=== PATIENT | female | born 1975 | race African-American/Black ===

== ENCOUNTER 2016-10-11 18:21 | Emergency (ER) | payer OTHER ==
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
[2016-10-11] MEDS ORDERED: ACET/COD 300 MG/30 MG STARTER PACK 6 TAB BTL PO STA (20:19)
[2016-10-11 20:26] VITALS: BP 158/88; PULSE 74; RESP 20; TEMP 98.8
== END 2016-10-11 20:26 | disposition home or self-care (01) ==
LOC: EC 18:21
DX: M70.20 Olecranon bursitis, unspecified elbow (principal); M17.12 Unilateral primary osteoarthritis, left knee; Z79.899 Other long term (current) drug therapy; Z79.51 Long term (current) use of inhaled steroids; E28.2 Polycystic ovarian syndrome; Z79.3 Long term (current) use of hormonal contraceptives; F17.200 Nicotine dependence, unspecified, uncomplicated; M70.32 Other bursitis of elbow, left elbow
CPT/HCPCS: 99283

== ENCOUNTER 2017-02-28 12:50 | Inpatient (IN) | payer OTHER ==
[2017-02-28 13:19] LABS: Glucose,Whole Blood 128 mg/dL (75-99)
[2017-02-28] MEDS ORDERED: MORPHINE SULFATE 4 MG/ML SYRINGE IV STA (13:26)
--- NOTE | 2017-02-28 13:34 | ED ---
General Adult HPI - General Chief complaint: Neuro Symptoms/Deficit Stated complaint: Headache-blurred vision Time Seen by Provider: 02/28/17 13:16 Source: patient, family, RN notes reviewed Mode of arrival: wheelchair Limitations: no limitations - History of Present Illness Initial comments: Patient is a pleasant 41-year-old female presenting to the emergency department with headache and visual problems. Patient has been expressing headaches for the past few months. Patient awoke today with double vision. Patient did recently see her doctor and was scheduled for computed tomography scan of the brain however this has not been done yet. Patient did take Motrin today. Headache is currently 7/10. Patient complains of double vision with the left eye. Patient states when she closes either eye the double vision results. No history of visual problems previously. does notice some abnormality in the way that the eyes move. No fevers. No neck pain. No weakness. No confusion. - Related Data Home Medications Medication Instructions Recorded Confirmed Medroxyprogesterone Acetate 150 mg IM Q90D 01/21/16 02/28/17 [Depo-Provera] Previous Rx's Medication Instructions Recorded Ibuprofen [Motrin] 800 mg PO Q6HR PRN #15 tab 10/11/16 Allergies Allergy/AdvReac Type Severity Reaction Status Date / Time citalopram hydrobromide AdvReac Severe Migraine Verified 02/28/17 13:05 [From [facility] Panels[facility]] Review of Systems ROS Statement: Those systems with pertinent positive or pertinent negative responses have been documented in the HPI. ROS Other: All systems not noted in ROS Statement are negative. Constitutional: Denies: fever Eyes: Reports: vision change. Denies: eye discharge ENT: Denies: ear pain Respiratory: Denies: cough Cardiovascular: Denies: chest pain Endocrine: Denies: fatigue Gastrointestinal: Denies: abdominal pain Genitourinary: Denies: dysuria Musculoskeletal: Denies: back pain Skin: Denies: rash Neurological: Reports: headache Past Medical History Past Medical History: Osteoarthritis (OA) Additional Past Medical History / Comment(s): ibs chronic pain seasonal allergies PCOS History of Any Multi-Drug Resistant Organisms: None Reported Past Surgical History: Cholecystectomy, Orthopedic Surgery Additional Past Surgical History / Comment(s): colonoscopy, d & c Past Psychological History: Anxiety Smoking Status: Current every day smoker Past Alcohol Use History: Rare Past Drug Use History: None Reported General Exam Limitations: no limitations General appearance: alert, in no apparent distress Head exam: Present: atraumatic, normocephalic, other (Mild tenderness left temporal region) Eye exam: Present: other (There is disconjugate gaze especially with movement to the left. Right eye does not appear to completely remove to the left side. Left eye has horizontal nystagmus with left lateral vision. Double vision resolves with either eye.) Expanded Eyelids: Normal Inspection: Bilateral Pupils: Regular, Round: Bilateral, Reactive: Bilateral Sclera/Conjunctival: Normal Inspection: Bilateral ENT exam: Present: normal oropharynx Neck exam: Present: normal inspection. Absent: tenderness, meningismus Respiratory exam: Present: normal lung sounds bilaterally Cardiovascular Exam: Present: regular rate, normal rhythm GI/Abdominal exam: Present: soft. Absent: tenderness Extremities exam: Present: normal inspection Neurological exam: Present: alert Expanded Cranial nerves: EOM's Intact: Abnormal Right, Facial Sensation: Normal Cerebellar function: Finger to Nose: Normal (Patient states it feels slightly off with the left side however does touch her nose) Sensory exam: Upper Extremity Light Touch: Normal, Lower Extremity Light Touch: Normal Motor strength exam: RUE: 5, LUE: 5, RLE: 5, LLE: 5 Eye Response: (4) open spontaneously Motor Response: (6) obeys commands Verbal Response: (5) oriented Psychiatric exam: Present: normal affect, normal mood Skin exam: Present: normal color Course Vital Signs 02/28/17 02/28/17 13:01 14:21 Temperature 100.1 F H Pulse Rate 102 H 89 Respiratory 18 18 Rate Blood Pressure 189/98 165/73 O2 Sat by Pulse 100 98 Oximetry EKG Findings - EKG Comments: EKG Findings:: Normal sinus rhythm 98. CT 150. QRS 80. QT 362. QTC 462. Normal axis. Normal QRS. Normal ST-T. Medical Decision Making - Medical Decision Making Patient reevaluated and updated. Concern exists regarding abnormal eye exam and double vision. Patient will be admitted for MRI and neurology evaluation. Case discussed in detail with Dr. Hopson, who will admit for Dr. Freddie Bo. - Lab Data Result diagrams: 02/28/17 13:40 02/28/17 13:40 Lab Results 02/28/17 02/28/17 02/28/17 Range/Units 13:18 13:40 13:40 WBC 12.2 H (3.8-10.6) k/uL RBC 4.40 (3.80-5.40) m/uL Hgb 14.4 (11.4-16.0) gm/dL Hct 42.3 (34.0-46.0) % MCV 96.0 (80.0-100.0) fL MCH 32.7 (25.0-35.0) pg MCHC 34.1 (31.0-37.0) g/dL RDW 13.5 (11.5-15.5) % Plt Count 326 (150-450) k/uL Neutrophils % 61 % Lymphocytes % 28 % Monocytes % 6 % Eosinophils % 3 % Basophils % 1 % Neutrophils # 7.4 (1.3-7.7) k/uL Lymphocytes # 3.4 (1.0-4.8) k/uL Monocytes # 0.7 (0-1.0) k/uL Eosinophils # 0.4 (0-0.7) k/uL Basophils # 0.1 (0-0.2) k/uL ESR Cancelled PT (9.0-12.0) sec INR (<1.1) APTT (22.0-30.0) sec Sodium (137-145) mmol/L Potassium (3.5-5.1) mmol/L Chloride (98-107) mmol/L Carbon Dioxide (22-30) mmol/L Anion Gap mmol/L BUN (7-17) mg/dL Creatinine (0.52-1.04) mg/dL Est GFR (MDRD) Af Amer (>60 ml/min/1.73 sqM) Est GFR (MDRD) Non-Af (>60 ml/min/1.73 sqM) Glucose (74-99) mg/dL POC Glucose (mg/dL) 128 H (75-99) mg/dL POC Glu Outpatient Coder ID Anger, [place] Calcium (8.4-10.2) mg/dL Total Bilirubin (0.2-1.3) mg/dL AST (14-36) U/L ALT (9-52) U/L Alkaline Phosphatase (38-126) U/L Total Creatine Kinase 136 H (30-135) U/L CK-MB (CK-2) 0.4 (0.0-2.4) ng/mL CK-MB (CK-2) Rel Index 0.3 Troponin I <0.012 (0.000-0.034) ng/mL Total Protein (6.3-8.2) g/dL Albumin (3.5-5.0) g/dL 02/28/17 02/28/17 Range/Units 13:40 13:40 WBC (3.8-10.6) k/uL RBC (3.80-5.40) m/uL Hgb (11.4-16.0) gm/dL Hct (34.0-46.0) % MCV (80.0-100.0) fL MCH (25.0-35.0) pg MCHC (31.0-37.0) g/dL RDW (11.5-15.5) % Plt Count (150-450) k/uL Neutrophils % % Lymphocytes % % Monocytes % % Eosinophils % % Basophils % % Neutrophils # (1.3-7.7) k/uL Lymphocytes # (1.0-4.8) k/uL Monocytes # (0-1.0) k/uL Eosinophils # (0-0.7) k/uL Basophils # (0-0.2) k/uL ESR PT 10.3 (9.0-12.0) sec INR 1.0 (<1.1) APTT 25.0 (22.0-30.0) sec Sodium 141 (137-145) mmol/L Potassium 4.0 (3.5-5.1) mmol/L Chloride 112 H (98-107) mmol/L Carbon Dioxide 20 L (22-30) mmol/L Anion Gap 9 mmol/L BUN 10 (7-17) mg/dL Creatinine 0.64 (0.52-1.04) mg/dL Est GFR (MDRD) Af Amer >60 (>60 ml/min/1.73 sqM) Est GFR (MDRD) Non-Af >60 (>60 ml/min/1.73 sqM) Glucose 113 H (74-99) mg/dL POC Glucose (mg/dL) (75-99) mg/dL POC Glu Outpatient Coder ID Calcium 9.5 (8.4-10.2) mg/dL Total Bilirubin 0.6 (0.2-1.3) mg/dL AST 20 (14-36) U/L ALT 21 (9-52) U/L Alkaline Phosphatase 86 (38-126) U/L Total Creatine Kinase (30-135) U/L CK-MB (CK-2) (0.0-2.4) ng/mL CK-MB (CK-2) Rel Index Troponin I (0.000-0.034) ng/mL Total Protein 7.5 (6.3-8.2) g/dL Albumin 4.3 (3.5-5.0) g/dL - Radiology Data Radiology results: image reviewed (Computed tomography scan of the brain shows no acute intercranial abnormality. Two-view chest x-ray shows no acute process. ) Disposition Clinical Impression: Diplopia, Dysconjugate gaze Disposition: ADMITTED IP TO THIS [facility] Condition: Serious Referrals: Smita Mckeon MD [Primary Care Provider] - 1-2 days Time of Disposition: 15:00
[2017-02-28] MEDS: SODIUM CHLORIDE 0.9% 1,000 ML IV STA (13:40)
[2017-02-28 14:06] LABS: Basophils # (A) 0.1 k/uL (0-0.2); Basophils % (A) 1 %; CH 32.4; Eosinophils # (A) 0.4 k/uL (0-0.7); Eosinophils % (A) 3 %; HCT 42.3 % (34.0-46.0); HDW 3.09; HGB 14.4 gm/dL (11.4-16.0); Luc # (Auto) 0.27; Luc % (Auto) 2; Lymphocytes # (A) 3.4 k/uL (1.0-4.8); Lymphocytes % (A) 28 %; MCH 32.7 pg (25.0-35.0); MCHC 34.1 g/dL (31.0-37.0); Mean Platelet Volume 7.5; Monocytes # (A) 0.7 k/uL (0-1.0); Monocytes % (A) 6 %; Neutrophils # (A) 7.4 k/uL (1.3-7.7); Neutrophils % (A) 61 %; RDW 13.5 % (11.5-15.5); WBC 12.2 k/uL (3.8-10.6); WBC (Perox) 12.95
--- NOTE | 2017-02-28 14:10 | CT ---
EXAMINATION TYPE: CT brain wo con for TPA DATE OF EXAM: 02/28/2017 COMPARISON: MRI brain November 10, 2010 HISTORY: Headache, dizziness, blurred vision CT DLP: 1090.4 mGycm Automated exposure control for dose reduction was used. FINDINGS: There is no acute intracranial hemorrhage, mass effect, or midline shift identified. The ventricles and sulci are within normal limits in size. Flores-white matter differentiation is maintained. The glob es are intact and the visualized sinuses are clear. IMPRESSION: No acute intracranial hemorrhage, mass effect, or midline shift is seen. Unremarkable study.
[2017-02-28 14:14] LABS: Prothrombin Time 10.3 sec (9.0-12.0)
[2017-02-28 14:17] LABS: ALT 21 U/L (9-52); AST 20 U/L (14-36); Alkaline Phosphatase 86 U/L (38-126); Anion Gap 9 mmol/L; Blood Urea Nitrogen 10 mg/dL (7-17); Calcium 9.5 mg/dL (8.4-10.2); Carbon Dioxide 20 mmol/L (22-30); Chloride 112 mmol/L (98-107); Glucose 113 mg/dL (74-99); Non-African American GFR(MDRD) >60 (>60 ml/min/1.73 sqM); Sodium 141 mmol/L (137-145); Total Bilirubin 0.6 mg/dL (0.2-1.3); Total Protein 7.5 g/dL (6.3-8.2)
[2017-02-28 14:32] LABS: Creatine Kinase 136 U/L (30-135)
--- NOTE | 2017-02-28 14:35 | XR ---
EXAMINATION TYPE: XR chest 2V DATE OF EXAM: 02/28/2017 HISTORY: altered mental status. REFERENCE: Previous study dated 07/30/2015. FINDINGS: The lungs appear clear. Pleural spaces are clear. Heart size is upper limits of normal. IMPRESSION: NO ACUTE INTRATHORACIC ABNORMALITY.
[2017-02-28 14:44] LABS: Creatine Kinase MB 0.4 ng/mL (0.0-2.4); Troponin I <0.012 ng/mL (0.000-0.034)
[2017-02-28] MEDS ORDERED: LORazepam 1 MG TAB PO STA (15:00)
[2017-02-28] MEDS ORDERED: MORPHINE SULFATE 4 MG/ML SYRINGE IV PRN (15:02)
[2017-02-28] MEDS ORDERED: NALOXONE 0.4 MG/ML 1 ML VIAL IV PRN (15:02)
[2017-02-28] MEDS ORDERED: TEMAZEPAM 15 MG CAP PO PRN (17:49)
[2017-02-28] MEDS ORDERED: VALPROATE SODIUM 500 MG in SODIUM CHLORIDE 0.9% 50 ML IVPB ONE (20:00)
[2017-02-28] MEDS: HYDROmorphone 1 MG/ML 1 ML SYRINGE IVP PRN (20:14)
[2017-02-28] MEDS: PANTOPRAZOLE 40 MG TABLET PO SCH (20:19)
[2017-02-28] MEDS: methylPREDNISolone SOD SUCCI 125 MG/2 ML VIAL IVP SCH (20:21)
[2017-02-28] MEDS: METOCLOPRAMIDE 5 MG/ML 2 ML VIAL IVP SCH (20:26)
[2017-02-28] MEDS: IBUPROFEN 800 MG TAB PO PRN (20:36)
[2017-02-28] MEDS: NICOTINE 14MG/24HR PATCH TRANSDERM SCH (20:39)
[2017-02-28] MEDS: MAGNESIUM SULFATE-D5W PMX 1 GM in DEXTROSE/WATER 1 100ML.BAG IVPB SCH (22:28)
[2017-02-28] MEDS: HEPARIN SODIUM,PORCINE 5,000 UNIT/ML 1 ML VIAL SQ SCH (22:37)
[2017-02-28] MEDS: LORazepam 0.5 MG TAB PO PRN (22:48)
[2017-02-28] MEDS: Acetaminophen-Codeine 300-30mg TAB PO PRN (22:49)
[2017-03-01] MEDS: SODIUM CHLORIDE 0.9% 1,000 ML IV STA (01:10)
[2017-03-01] MEDS: VALPROATE SODIUM 500 MG in SODIUM CHLORIDE 0.9% 50 ML IVPB SCH ×3 (02:41→17:25)
[2017-03-01] MEDS: HYDROmorphone 1 MG/ML 1 ML SYRINGE IVP PRN ×4 (02:55→22:26)
[2017-03-01] MEDS: IBUPROFEN 800 MG TAB PO PRN ×2 (06:12→21:41)
[2017-03-01 06:20] LABS: Appearance,Urine Cloudy (Clear); Bacteria,Urine Moderate /hpf; Bilirubin,Urine Negative (Negative); Glucose,Urine (UA) Negative (Negative); Ketones,Urine 2+ (Negative); Leukocyte Esterase,Urine Negative (Negative); Mucus,Urine Rare /hpf; Nitrite,Urine Negative (Negative); Particle Count 9283; Protein,Urine Trace (Negative); RBC,Urine 1 /hpf (0-5); Specific Gravity,Urine 1.023 (1.001-1.035); Squamous Epithelial Cell,Urine 3 /hpf (0-4); UA Billing (MACRO vs. MICRO) MICRO; Urobilinogen,Urine <2.0 mg/dL (<2.0); WBC,Urine 1 /hpf (0-5)
[2017-03-01 06:53] LABS: Basophils % (A) 0 %; CH 32.3; CHCM 32.6; Eosinophils # (A) 0.1 k/uL (0-0.7); Eosinophils % (A) 1 %; HCT 42.6 % (34.0-46.0); HDW 2.85; HGB 13.5 gm/dL (11.4-16.0); Luc # (Auto) 0.08; Luc % (Auto) 1; Lymphocytes # (A) 1.9 k/uL (1.0-4.8); Lymphocytes % (A) 15 %; MCH 31.7 pg (25.0-35.0); MCHC 31.8 g/dL (31.0-37.0); MCV 99.8 fL (80.0-100.0); Mean Platelet Volume 7.1; Monocytes # (A) 0.3 k/uL (0-1.0); Monocytes % (A) 2 %; Neutrophils % (A) 81 %; RBC 4.27 m/uL (3.80-5.40); RDW 13.6 % (11.5-15.5); WBC 12.4 k/uL (3.8-10.6); WBC (Perox) 13.35
--- NOTE | 2017-03-01 07:54 | HP ---
DATE OF ADMISSION: CHIEF COMPLAINT: Difficulty in vision and headache. HISTORY OF PRESENT ILLNESS: This 41-year-old woman with a past medical history of DJD, history of IBS, chronic seasonal allergies, cholecystectomy, being followed by Dr. Smita Mckeon in the outpatient setting, was having severe headache, migraine for the last 3 months. The pain was felt in the anterior part of the , recurring character. The patient is scheduled to have a CAT scan, but this patient woke up and patient had difficulty in seeing and seeing double on the left side and the patient came to [facility] and admitted for further evaluation and treatment. Pain of headache is about 7 out of 10 in severity. There is no history of any fever, rigors. No history of loss of consciousness or seizures. PAST MEDICAL HISTORY: History of DJD, history of IBS, chronic pain seasonal allergies, anxiety. Medications prior to admission include home medications are: 1. Depo-Provera. 2. Motrin 800 mg q.6 p.r.n. Allergies are CELEXA. FAMILY HISTORY: History of stroke, history of diabetes mellitus in the family. SOCIAL HISTORY: History of smoking. No history of alcohol intake. REVIEW OF SYSTEMS: ENT: As mentioned earlier. CARDIOVASCULAR: No angina or palpitations. RESPIRATORY: No cough. GI: No nausea. : No dysuria. NERVOUS SYSTEM: as mentioned earlier. ALLERGY/IMMUNOLOGY: No history of asthma. MUSCULOSKELETAL: As mentioned earlier. HEMATOLOGY/ONCOLOGY: No history of anemia. ENDOCRINE: No history of diabetes mellitus or hypothyroidism. CONSTITUTIONAL: As mentioned earlier. DERMATOLOGY: Negative. RHEUMATOLOGY: Negative. PSYCHIATRY: As mentioned earlier. PHYSICAL EXAMINATION: The patient is alert and oriented x3. Pulse is 70, blood pressure 176/77, respirations 18, temperature 98.7, T-max of 100.1, pulse ox is 100% on room air. HEENT: Conjunctivae normal. Oral mucosa moist. NECK: No jugular venous distention. No carotid bruit. No lymph node enlargement. CARDIOVASCULAR: S1 and S2, muffled. No S3, no S4. RESPIRATORY: Breath sounds diminished at the bases. No rhonchi, no crackles. ABDOMEN: Soft, nontender. No mass palpable. LEGS: No edema, no swelling. NERVOUS SYSTEM: Higher function as mentioned earlier. Cranial nerves disconjugate eye movements present and also nystagmus to the point of the present. Diplopia also present. Otherwise, other cranial nerves are normal. Minimal facial suspected on the left side. Otherwise moves all 4 limbs. No focal motor or sensory deficit. No dysfunction. LYMPHATICS: No lymphadenopathy of neck, axillae or groin. JOINTS: No active deforming arthropathy. LABS: WBC 12.2 and CO2 is 20. ASSESSMENT: 1. Diplopia and headache for evaluation. Rule out acute brainstem stroke. 2. Increased WBC. 3. Fever for evaluation. 4. Increased random blood sugar. 5. History of nicotine dependence. 6. History of degenerative joint disease. 7. History of seasonal allergies. 8. History of irritable bowel syndrome. 9. History of anxiety, not otherwise specified. 10. History of cholecystectomy. 11. FULL CODE. 12. Obesity, body mass index of 35.5. RECOMMENDATIONS AND DISCUSSION: This 41-year-old woman who presented with multiple complex medical issues, we will monitor the patient closely. Continue the current medications, continue symptomatic treatment. Otherwise, at this time I would recommend neurology evaluation. Initial CAT scan is normal, but, however, I would also recommend neurovascular evaluation also. Prognosis guarded. Symptomatic treatment provided. Discussed with the patient, understands and agrees. Further recommendations to follow. MTDD
[2017-03-01 08:36] LABS: Anion Gap 10 mmol/L; Blood Urea Nitrogen 11 mg/dL (7-17); Calcium 9.1 mg/dL (8.4-10.2); Carbon Dioxide 20 mmol/L (22-30); Chloride 112 mmol/L (98-107); Cholesterol 185 mg/dL (<200); Glucose 168 mg/dL (74-99); HDL Cholesterol 53 mg/dL (40-60); Non-African American GFR(MDRD) >60 (>60 ml/min/1.73 sqM); Sodium 142 mmol/L (137-145); Triglycerides 110 mg/dL (<150)
[2017-03-01] MEDS: METOCLOPRAMIDE 5 MG/ML 2 ML VIAL IVP SCH ×2 (08:50→14:22)
[2017-03-01] MEDS: methylPREDNISolone SOD SUCCI 125 MG/2 ML VIAL IVP SCH ×3 (08:51→16:29)
[2017-03-01] MEDS: PANTOPRAZOLE 40 MG TABLET PO SCH (09:28)
[2017-03-01] MEDS: LORazepam 0.5 MG TAB PO PRN ×3 (09:32→17:38)
[2017-03-01] MEDS: NICOTINE 14MG/24HR PATCH TRANSDERM SCH (09:36)
[2017-03-01] MEDS: HEPARIN SODIUM,PORCINE 5,000 UNIT/ML 1 ML VIAL SQ SCH ×2 (09:38→21:34)
[2017-03-01] MEDS: ASPIRIN 81 MG CHEW PO SCH (09:38)
--- NOTE | 2017-03-01 10:20 | CONS ---
DATE OF CONSULTATION: CHIEF COMPLAINT: Headache for the last 3 months associated diplopia for the last 24 hours. MEDICAL HISTORY: Patient is suffering from migraine headaches over the last several months. Developed double vision yesterday which is associated with pain on moving the eye. EYE EXAMINATION: Vision is 20/30 both eyes, reading card. Extraocular motility shows limitation of adduction and elevation looking up and to the right, diplopia is a vertical type of diplopia. Pupils were equal and reactive, tension inclination was 20 mmHg right eye and 21 left eye. Anterior chamber was normal. Lens shows 1+ NS. Retina shows normal blood vessel, cap dyscrasia 0.45 both eyes, no ( ) edema, no disc swelling. ASSESSMENT: 1. Vertical diplopia. 2. Possible migraine headache. PLAN: MRI has been scheduled. This is done to rule out tumors or demyelinating disease. I will see the patient in my office on Monday at 10 a.m.
--- NOTE | 2017-03-01 11:07 | CONS ---
DATE OF CONSULTATION: 02/28/2017 CHIEF COMPLAINT: Headache and visual changes. HISTORY OF PRESENT ILLNESS: Mrs. Manzanares is a 41-year-old female who is being evaluated by the neurology service per the request of Dr. Hopson for the above mentioned complaints. The patient states that she has been having headaches almost on a daily basis over the past 4 to 5 months. She denies any recent head injuries or any changes in her home medications. She describes the pain as a throbbing pain that is mostly located in the left frontal parietal temporal region and she rates it as severe as 9 out of 10 in intensity. She has been trying nrvk-sgh-[id number] analgesics with no improvements. She also states that over the past few weeks, she has noticed some double vision that has been progressively getting worse. She was brought into [facility] Emergency Room for further workup and management. A CT scan of the brain was done, which was normal. I did review her laboratory workup, which showed a normal comprehensive metabolic profile, Sed rate, and cardiac enzymes. Her CBC showed mild leukocytosis at 12.2. She denies any neck stiffness or fevers at home. The patient does have Dilaudid IV ordered as needed for her headaches. She was evaluated by Dr. Tolbert from ophthalmology and there was no papilledema is seen. At the time of my evaluation, she is lying in her bed and appears to be in no acute distress. She denies any changes in her symptoms since her arrival. She does complain of some fatigue and generalized weakness that has also been present for the past few weeks, but has been gradually getting worse. She denies any previous symptoms similar to this. At the time of my evaluation, she rates her headache at 8 out of 10 in intensity. PAST MEDICAL HISTORY: Arthritis, irritable bowel syndrome, anxiety disorder, history of orthopedic surgeries and cholecystectomy. She also has history of D&C. SOCIAL HISTORY: She currently smokes cigarettes. She rarely drinks alcohol. She denies any drug use. HOME MEDICATIONS: Reviewed in the chart. ALLERGIES: CELEXA. REVIEW OF SYSTEMS: CONSTITUTIONAL: As mentioned above. EYES: As mentioned above. ENT: Negative. CARDIOVASCULAR: Negative. RESPIRATORY: Negative. NEUROLOGICAL: As mentioned above. GASTROINTESTINAL: Negative. GENITOURINARY: Negative. MUSCULOSKELETAL: Positive for occasional joint pain. ENDOCRINE: Negative. DERMATOLOGICAL: Negative. PSYCHIATRIC: Positive for history of anxiety disorder. PHYSICAL EXAM: Vital signs show a temperature of 98.2, pulse 65, respirations 20, blood pressure 159/82. GENERAL APPEARANCE: The patient is an obese female who appears to be in no acute distress. HEENT: Normocephalic, atraumatic, no facial asymmetry is seen. Extraocular muscles are intact. Neck is supple with no masses felt. CARDIOVASCULAR: Regular rate and rhythm. ABDOMEN: Nontender, nondistended. Extremities showed no edema or clubbing. NEUROLOGICAL EXAM: The patient is alert and oriented x3. Speech and language are normal. Strength is full in all 4 extremities. Sensory exam was normal to light touch in all 4 extremities. Cranial nerve testing showed no facial asymmetry, but the patient did have diplopia which worsened with left gaze. Diplopia did resolve with closure of either eye. No tremors are seen. IMPRESSION: 1. Intractable headache. 2. Migraine headaches. 3. Diplopia. 4. Fatigue. RECOMMENDATIONS: The patient has been having recurrent uncontrolled headaches that are consistent with migraine. Her headaches are throbbing and mostly unilateral with associated symptoms consistent with a migraine. It is unclear what is causing her diplopia at this time. Regarding this, an MRI and MRA of the brain have been ordered. I will also order a myasthenia gravis panel. Depending on the results of her MRI, she will most likely need a lumbar puncture for spinal fluid testing. As for her current headache, continue Dilaudid as needed. I will treat her with a IV dose of Solu-Medrol, Reglan, magnesium sulfate, and Depakote. Ophthalmology is following the patient. Continue the rest of your current workup and management. I will continue to follow with you. Further recommendations to follow. Thank you for allowing me to participate in the care of your patient. If you have any questions, please feel free to contact me.
--- NOTE | 2017-03-01 11:51 | MR ---
EXAMINATION TYPE: MR brain wo/w con, MR angio head wo con DATE OF EXAM: 03/01/2017 11:40 AM COMPARISON: 08/24/2010 MRI brain HISTORY: double vision, migrains. CONTRAST: 19 mL intravenous MultiHance gadolinium contrast. Three-dimensional [id number]-[id number] intracranial MRA was performed with multiple intensity projection im ages submitted and source data reviewed at the workstation. Patient motion limits evaluation. The vertebrobasilar system as well as intracranial portions of the internal carotid arteries and thei r major tributaries are patent. I do not see evidence for sizable aneurysm or vascular malformation. IMPRESSION: Normal study PRE AND POSTCONTRAST ENHANCED MRI OF THE BRAIN: Multiplanar and multispin-echo imaging of the brain was performed both before and after the administr ation of contrast. Patient motion limits evaluation. The ventricles, basal cisterns and sulci overlying the cerebral convexities are within normal limits. There is no evidence for midline shift or mass effect. Acute intracranial hemorrhage or extra-axia l collection is not evident. There are no abnormal areas of increased or decreased signal intensity within the brain parenchyma. Following contrast administration, there is no evidence for pathologic enhancement or enhancing mass. 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 The parana dal[place] sinuses and mastoid air cells are well-aerated. IMPRESSION: 1. Pineal gland cyst. 2. Otherwise unremarkable study although portions of the examination is limited given patient motion.
[2017-03-01] MEDS: MAGNESIUM SULFATE-D5W PMX 1 GM in DEXTROSE/WATER 1 100ML.BAG IVPB SCH ×2 (12:02→22:26)
[2017-03-01] MEDS: Acetaminophen-Codeine 300-30mg TAB PO PRN ×2 (12:51→18:42)
[2017-03-01 18:26] LABS: Glucose,Whole Blood 145 mg/dL (75-99)
[2017-03-01] MEDS: INSULIN LISPRO (humaLOG) 300 UNIT/3 ML VIAL SQ SCH ×2 (18:38→21:41)
[2017-03-01] MEDS: ATORVASTATIN 10 MG TAB PO SCH (21:32)
[2017-03-01 21:47] LABS: Glucose,Whole Blood 114 mg/dL (75-99)
--- NOTE | 2017-03-01 22:15 | P.PN ---
Subjective Principal diagnosis: Diplopia, head pain Neurology is following a 41-year-old -[place] female at the request of primary care. Complaints include headache and visual changes. Patient has been having headaches almost on a daily basis over the past 4-5 months. Patient denies any recent head injuries or changes in all medications. Patient further describes the pain as throbbing and is mostly located in the left frontal parietal temporal region but also will intermittently extend to the right side as well. Patient rates the pain as a 9 out of 10 in severity and intensity. She has tried wukg-bck-ggunxqe analgesias and anti- inflammatories with no improvement. Patient has noted some diplopia that has been progressively getting worse. She is brought to the emergency room for further workup and management. CT of the brain was normal. Laboratory workup showed normal CMP, sedimentation rate and cardiac enzymes. CBC was indicative of mild leukocytosis at 12.2. Patient denied any neck stiffness, fevers. On initial consult yesterday, patient did not have any papilledema. Neurology had previously requested a myasthenia gravis panel Which is pending. At contact today, the patient was supine in bed. Alert and oriented 3. She states that the IV infusion over the previous 24 hours has decreased the intensity of her head pain by approximately one third. When discussing with the patient further, she states that she does have intermittent left eyelid ptosis over the last several months. It is occurring on a regular basis and in significant severity that her spouse and child noticed the changes. She also states that her eyes will also tear inexplicably and intermittently. Objective - Vital Signs Vital signs: Vital Signs Temp 97.7 F 03/01/17 20:17 Pulse 80 03/01/17 20:17 Resp 20 03/01/17 20:17 BP 153/74 03/01/17 20:17 Pulse Ox 100 03/01/17 20:17 Intake & Output 03/01/17 03/01/17 03/02/17 06:59 18:59 06:59 Intake Total 240 Balance 240 Intake: Oral 240 Other: Voiding Method Toilet # Voids 1 1 - Exam Constitutional: AOx3, cooperative HEENT: NC/AT, no facial asymmetry is seen. Throat: Supple, no masses Respiratory: No increased work of breathing Cardiac: Regular rate and Rhythm GI: non tender, non distended Musculoskeletal: Dampener strengths are equal bilaterally 5/5, Lower extremity strengths are equal bilaterally at 5/5. Neurological: CN II-XII in tact, patient was AOx3, Slight horizontal nystagmus elicited on physical exam, speech and language are normal, no unilateralizing weakness, no seizure activity note on physical exam. Sensation was normal. Integementary: no rash, no erythema Psychiatric: mood and affect appropriate - Labs CBC & Chem 7: 03/01/17 06:37 03/01/17 06:37 Labs: Abnormal Lab Results - Last 24 Hours (Table) 03/01/17 03/01/17 03/01/17 Range/Units 05:00 05:00 06:37 WBC 12.4 H (3.8-10.6) k/uL Neutrophils # 10.0 H (1.3-7.7) k/uL Chloride (98-107) mmol/L Carbon Dioxide (22-30) mmol/L Glucose (74-99) mg/dL POC Glucose (mg/dL) (75-99) mg/dL LDL Cholesterol, Calc (0-99) mg/dL Urine Appearance Cloudy H (Clear) Urine Protein Trace H (Negative) Urine Ketones 2+ H (Negative) Urine Bacteria Moderate H (None) /hpf Urine Mucus Rare H (None) /hpf Urine Opiates Screen Detected H (NotDetected) Ur Oxycodone Screen Detected H (NotDetected) U Benzodiazepines Scrn Detected H (NotDetected) 03/01/17 03/01/17 03/01/17 Range/Units 06:37 18:22 21:39 WBC (3.8-10.6) k/uL Neutrophils # (1.3-7.7) k/uL Chloride 112 H (98-107) mmol/L Carbon Dioxide 20 L (22-30) mmol/L Glucose 168 H (74-99) mg/dL POC Glucose (mg/dL) 145 H 114 H (75-99) mg/dL LDL Cholesterol, Calc 110 H (0-99) mg/dL Urine Appearance (Clear) Urine Protein (Negative) Urine Ketones (Negative) Urine Bacteria (None) /hpf Urine Mucus (None) /hpf Urine Opiates Screen (NotDetected) Ur Oxycodone Screen (NotDetected) U Benzodiazepines Scrn (NotDetected) Assessment and Plan (1) Migraine Status: Acute (2) Fatigue Status: Acute (3) Diplopia Status: Acute Plan: 1. Migraine 2. Diplopia 3. Fatigue MRI and MRA of the brain were ordered yesterday and results were unremarkable except for a pineal cyst. Myasthenia gravis panel was ordered and taken, results pending. Patient has been on Dilaudid, IV Solu-Medrol Reglan magnesium sulfate and Depakote. Ophthalmology did consult on the patient today. At this time the patient's condition is slightly improved with respect to the patient's intensity of her head pain. Patient also no longer has diplopia. At this time continue existing treatment plan, Neurology will continue to follow and will provide further updates as needed or warranted. If you have any questions please feel free to contact our office.
--- NOTE | 2017-03-01 22:16 | PN ---
DATE OF SERVICE: 03/01/2017 This 41-year-old woman who was admitted with possible TIA had disconjugated eye movements as well as well as diplopia. The patient is seen by Neurology and Ophthalmology. The possibility of migraine headache is being considered. MRI showed only pineal cyst. No chest pain. No palpitation. On exam, alert and oriented x3. Pulse 81, blood pressure 156/75, respiration 20, temperature 98.9, pulse ox 100% on room air. HEENT: Conjunctivae normal. NECK: No jugular venous distention. CARDIOVASCULAR SYSTEM: S1, S2 muffled. RESPIRATORY SYSTEM: Breath sounds diminished at the bases. A few scattered rhonchi and crackles. ABDOMEN: Soft, non-tender. LEGS: No edema. No swelling. NERVOUS SYSTEM: No focal deficit. LABS: WBC 12.4. Otherwise, CO2 is 20. LDL is 110. UA noted. ASSESSMENT: 1. Severe headache and diplopia, possibly migrainous headache. 2. Increased white count. 3. Vertical diplopia. 4. 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 5. Fever for evaluation. 6. Increased random blood sugar. 7. History of nicotine dependence. 8. History of degenerative joint disease. 9. History of seasonal allergies. 10. History of irritable bowel syndrome. 11. History of anxiety not otherwise specified. 12. History of cholecystectomy. 13. Obesity with body mass index of 35.5. 14. Hyperlipidemia. 15. FULL CODE. RECOMMENDATIONS AND DISCUSSION: I recommend to continue with the current medications, continue with symptomatic treatment. Add Lipitor to the current regimen. Monitor blood sugars closely. Guarded prognosis. Further recommendations to follow. Closely follow with Ophthalmology as well as Neurology. Prognosis guarded.
[2017-03-02] MEDS: methylPREDNISolone SOD SUCCI 125 MG/2 ML VIAL IVP SCH ×3 (00:07→15:39)
[2017-03-02] MEDS: LORazepam 0.5 MG TAB PO PRN ×3 (00:58→15:00)
[2017-03-02] MEDS: VALPROATE SODIUM 500 MG in SODIUM CHLORIDE 0.9% 50 ML IVPB SCH ×3 (00:58→15:41)
[2017-03-02] MEDS: SODIUM CHLORIDE 0.9% 1,000 ML IV STA (06:14)
[2017-03-02] MEDS: PANTOPRAZOLE 40 MG TABLET PO SCH (06:15)
[2017-03-02] MEDS: HYDROmorphone 1 MG/ML 1 ML SYRINGE IVP PRN ×2 (06:49→13:32)
[2017-03-02 07:12] LABS: Basophils % (A) 0 %; CH 32.6; Eosinophils % (A) 0 %; HCT 44.7 % (34.0-46.0); HDW 2.79; HGB 14.1 gm/dL (11.4-16.0); Luc # (Auto) 0.07; Luc % (Auto) 0; Lymphocytes # (A) 2.4 k/uL (1.0-4.8); Lymphocytes % (A) 10 %; MCH 31.4 pg (25.0-35.0); MCHC 31.6 g/dL (31.0-37.0); MCV 99.4 fL (80.0-100.0); Mean Platelet Volume 7.2; Monocytes # (A) 0.4 k/uL (0-1.0); Monocytes % (A) 2 %; Neutrophils # (A) 21.3 k/uL (1.3-7.7); Neutrophils % (A) 88 %; RBC 4.49 m/uL (3.80-5.40); RDW 13.8 % (11.5-15.5); WBC 24.3 k/uL (3.8-10.6); WBC (Perox) 24.35
[2017-03-02 07:26] LABS: Anion Gap 12 mmol/L; Blood Urea Nitrogen 9 mg/dL (7-17); Calcium 9.4 mg/dL (8.4-10.2); Carbon Dioxide 20 mmol/L (22-30); Chloride 111 mmol/L (98-107); Glucose 131 mg/dL (74-99); Non-African American GFR(MDRD) >60 (>60 ml/min/1.73 sqM); Potassium 4.1 mmol/L (3.5-5.1); Sodium 143 mmol/L (137-145)
[2017-03-02 07:41] VITALS: RESP 16
[2017-03-02 07:41] LABS: Glucose,Whole Blood 139 mg/dL (75-99)
[2017-03-02] MEDS: INSULIN LISPRO (humaLOG) 300 UNIT/3 ML VIAL SQ SCH ×2 (07:41→13:34)
[2017-03-02] MEDS: HEPARIN SODIUM,PORCINE 5,000 UNIT/ML 1 ML VIAL SQ SCH ×2 (08:10→15:36)
[2017-03-02] MEDS: Acetaminophen-Codeine 300-30mg TAB PO PRN ×3 (08:36→20:35)
[2017-03-02] MEDS: ASPIRIN 81 MG CHEW PO SCH (08:43)
[2017-03-02] MEDS ORDERED: NICOTINE 14MG/24HR PATCH TRANSDERM SCH (09:00)
[2017-03-02 12:13] LABS: Glucose,Whole Blood 163 mg/dL (75-99)
[2017-03-02] MEDS: IBUPROFEN 800 MG TAB PO PRN (16:05)
[2017-03-02 19:30] VITALS: BP 156/83; PULSE 80; TEMP 99.2
[2017-03-02] MEDS: ATORVASTATIN 10 MG TAB PO SCH (20:46)
--- NOTE | 2017-03-02 21:42 | P.PN ---
Subjective Principal diagnosis: Diplopia, head pain Neurology is following a 41-year-old -[place] female at the request of primary care. Complaints include headache and visual changes. Patient has been having headaches almost on a daily basis over the past 4-5 months. Patient denies any recent head injuries or changes in all medications. Patient further describes the pain as throbbing and is mostly located in the left frontal parietal temporal region but also will intermittently extend to the right side as well. Patient rates the pain as a 9 out of 10 in severity and intensity. She has tried uefz-ctv-rikuwxj analgesias and anti- inflammatories with no improvement. Patient had noted some diplopia that has resolved since yesterday. CT of the brain was normal. Laboratory workup showed normal CMP, sedimentation rate and cardiac enzymes. CBC was indicative of mild leukocytosis at 12.2. Patient denied any neck stiffness, fevers. Patient did not have any papilledema. Requested a myasthenia gravis panel Which is pending. At contact today, the patient was supine in bed. Alert and oriented 3. She states that the IV infusion has decreased the intensity of her head pain by approximately two thirds and the pain is still present but tolerable. When discussing with the patient further, she states that she does have intermittent left eyelid ptosis over the last several months. It is occurring on a regular basis and in significant severity that her spouse and child noticed the changes. She also states that her eyes will also tear inexplicably and intermittently. Objective - Vital Signs Vital signs: Vital Signs Temp 99.2 F 03/02/17 17:15 Pulse 80 03/02/17 17:15 Resp 16 03/02/17 17:15 BP 156/83 03/02/17 17:15 Pulse Ox 100 03/02/17 17:15 Intake & Output 03/02/17 03/02/17 03/03/17 06:59 18:59 06:59 Intake Total 400 400 Balance 400 400 Intake: Oral 400 400 Other: Voiding Method Toilet Toilet # Voids 1 1 - Exam Constitutional: AOx3, cooperative HEENT: NC/AT, no facial asymmetry is seen. 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 Neurological: CN II-XII in tact, patient was AOx3 speech and language are normal , no unilateralizing weakness, no seizure activity note on physical exam. Sensation was normal. No eye ptosis on exam today. Integementary: no rash, no erythema Psychiatric: mood and affect appropriate - Labs CBC & Chem 7: 03/02/17 06:36 03/02/17 06:36 Labs: Abnormal Lab Results - Last 24 Hours (Table) 03/01/17 03/02/17 03/02/17 Range/Units 21:39 06:36 06:36 WBC 24.3 H (3.8-10.6) k/uL Neutrophils # 21.3 H (1.3-7.7) k/uL Chloride 111 H (98-107) mmol/L Carbon Dioxide 20 L (22-30) mmol/L Glucose 131 H (74-99) mg/dL POC Glucose (mg/dL) 114 H (75-99) mg/dL 03/02/17 03/02/17 Range/Units 07:31 12:07 WBC (3.8-10.6) k/uL Neutrophils # (1.3-7.7) k/uL Chloride (98-107) mmol/L Carbon Dioxide (22-30) mmol/L Glucose (74-99) mg/dL POC Glucose (mg/dL) 139 H 163 H (75-99) mg/dL Assessment and Plan (1) Migraine Status: Acute (2) Fatigue Status: Acute (3) Diplopia Status: Acute Plan: 1. Migraine- decreased to a tolerable level 2. Diplopia- resolved 3. Fatigue- resolved MRI and MRA of the brain were ordered yesterday and results were unremarkable except for a pineal cyst. Myasthenia gravis panel, results pending. Patient had been on Dilaudid, IV Solu-Medrol Reglan magnesium sulfate and Depakote whihc have been discontinued. Ophthalmology did consult on the patient. At this time the patient's condition is moderately improved with respect to the patient's intensity of her head pain. Patient also no longer has diplopia. Prescribed fioricet with codeine, 1 tab, po, TID #90 for one month, no refills. Patient advised to seek a follow up visit in our office in 10-14 days. Patient is cleared for discharge from a neurological standpoint.
== END 2017-03-02 20:50 | disposition home or self-care (01) | DRG 103 ==
LOC: EC 12:50 → 6PED 15:02
PROVIDERS: ADMIT Internal Medicine; ATTEND Internal Medicine
DX: G43.909 Migraine, unspecified, not intractable, without status migrainosus (principal); E28.2 Polycystic ovarian syndrome; E78.5 Hyperlipidemia, unspecified; E66.9 Obesity, unspecified; D72.829 Elevated white blood cell count, unspecified; F17.210 Nicotine dependence, cigarettes, uncomplicated; H02.402 Unspecified ptosis of left eyelid; H53.2 Diplopia; K58.9 Irritable bowel syndrome, unspecified; F41.9 Anxiety disorder, unspecified; G89.29 Other chronic pain; J30.2 Other seasonal allergic rhinitis; M19.90 Unspecified osteoarthritis, unspecified site; G93.0 Cerebral cysts; R73.9 Hyperglycemia, unspecified; Z68.35 Body mass index [BMI] 35.0-35.9, adult; Z79.3 Long term (current) use of hormonal contraceptives; Z88.8 Allergy status to other drugs, medicaments and biological substances
CPT/HCPCS: 36415; 70450; 70544; 70553; 71020; 80048; 80053; 80061; 80306; 81001; 82550; 82553; 83516; 83519; 84484; 85025; 85610; 85652; 85730; 86140; 93005; 96361; 96374; 99285

== ENCOUNTER 2017-12-27 15:17 | Emergency (ER) | payer OTHER ==
[2017-12-27] MEDS ORDERED: IPRATROPIUM-ALBUTEROL 3 ML NEB INHALATION STA (15:43)
[2017-12-27] MEDS ORDERED: KETOROLAC 60 MG/2 ML VIAL IM STA (15:43)
--- NOTE | 2017-12-27 15:48 | ED ---
URI HPI - General Chief Complaint: Upper Respiratory Infection Stated Complaint: Cough Time Seen by Provider: 12/27/17 15:24 Source: patient Mode of arrival: ambulatory Limitations: no limitations - History of Present Illness Initial Comments: 42-year-old female presenting for evaluation of progressively worsening cough for the last two weeks. She states that she doesn't have sick contacts in the home but uses public transportation and is around sick people on a daily basis. He states that initially started as a mild cough and now has progressed to be productive of yellow and green sputum, subjective fevers and chills, and generalized myalgias, arthralgias, and generalized fatigue. She had her influenza shot this year. States she does have a history of previous pneumonia which felt similar. She is been taking NyQuil and DayQuil and Motrin for her symptoms without relief. There are no exacerbating factors. She has not followed up with primary care physician. - Related Data Home Medications Medication Instructions Recorded Confirmed Medroxyprogesterone Acetate 150 mg IM Q90D 01/21/16 12/27/17 [Depo-Provera] Butalb/APAP/Caff 50-325-40Mg 1 tab PO Q48H PRN 12/27/17 12/27/17 [Fioricet 50-325-40] Hydrochlorothiazide [Hydrodiuril] 25 mg PO DAILY 12/27/17 12/27/17 Ibuprofen [Motrin] 800 mg PO AC-TID PRN 12/27/17 12/27/17 Meloxicam 7.5 mg PO BID PRN 12/27/17 12/27/17 Nicotine 21Mg/24Hr Patch [Habitrol 1 patch TRANSDERM DAILY 12/27/17 12/27/17 21Mg/24Hr Patch] Potassium Chloride ER [K-Dur 10] 10 meq PO DAILY 12/27/17 12/27/17 Propranolol HCl [Propranolol HCl 60 mg PO DAILY 12/27/17 12/27/17 ER] Sertraline [Zoloft] 50 mg PO DAILY 12/27/17 12/27/17 Previous Rx's Medication Instructions Recorded Aspirin 81 mg PO DAILY #30 03/02/17 Atorvastatin [Lipitor] 10 mg PO HS #30 tab 03/02/17 Azithromycin 250 mg PO DAILY 4 Days #3 tab 12/27/17 Benzonatate [Tessalon Perles] 200 mg PO TID PRN #30 capsule 12/27/17 Allergies Allergy/AdvReac Type Severity Reaction Status Date / Time citalopram hydrobromide AdvReac Severe Migraine Verified 12/27/17 15:58 [From [employer] [place]] Review of Systems ROS Statement: Those systems with pertinent positive or pertinent negative responses have been documented in the HPI. ROS Other: All systems not noted in ROS Statement are negative. Constitutional: Reports: fever, chills Eyes: Denies: eye discharge, vision change ENT: Reports: congestion. Denies: ear pain, throat pain, epistaxis Respiratory: Reports: cough, dyspnea, wheezes Cardiovascular: Denies: chest pain, palpitations, dyspnea on exertion, syncope Endocrine: Reports: fatigue. Denies: polydipsia, polyuria Gastrointestinal: Denies: abdominal pain, nausea, vomiting, diarrhea, constipation Genitourinary: Denies: urgency, dysuria Musculoskeletal: Reports: arthralgia, myalgia. Denies: back pain Skin: Denies: rash, lesions Neurological: Reports: headache. Denies: weakness Psychiatric: Denies: anxiety, depression Hematological/Lymphatic: Denies: easy bleeding, easy bruising Past Medical History Past Medical History: Osteoarthritis (OA) Additional Past Medical History / Comment(s): ibs chronic pain seasonal allergies PCOS History of Any Multi-Drug Resistant Organisms: None Reported Past Surgical History: Cholecystectomy, Orthopedic Surgery Additional Past Surgical History / Comment(s): colonoscopy, d & c Past Psychological History: Anxiety, Depression Smoking Status: Current every day smoker Past Alcohol Use History: Rare Past Drug Use History: None Reported - Past Family History Father Family Medical History: Diabetes Mellitus Mother Family Medical History: No Reported History General Exam Limitations: no limitations General appearance: alert, in no apparent distress Head exam: Present: atraumatic, normocephalic, normal inspection Eye exam: Present: normal appearance, PERRL, EOMI. Absent: scleral icterus, conjunctival injection ENT exam: Present: normal exam, normal oropharynx Neck exam: Present: normal inspection. Absent: tenderness Respiratory exam: Present: normal lung sounds bilaterally. Absent: respiratory distress, wheezes, rales, rhonchi, stridor Cardiovascular Exam: Present: regular rate, normal rhythm GI/Abdominal exam: Present: soft. Absent: distended, tenderness, guarding, rebound, rigid Rectal exam: Present: deferred Extremities exam: Present: normal inspection, full ROM Back exam: Present: normal inspection, full ROM Neurological exam: Present: alert, oriented X3 Psychiatric exam: Present: normal affect, normal mood Skin exam: Present: warm, dry, intact Course Vital Signs 12/27/17 12/27/17 12/27/17 15:18 15:30 15:59 Temperature 98.1 F Pulse Rate 85 85 Respiratory 18 20 Rate Blood Pressure 182/85 O2 Sat by Pulse 97 Oximetry 12/27/17 16:07 Temperature Pulse Rate 88 Respiratory Rate Blood Pressure O2 Sat by Pulse Oximetry Medical Decision Making - Medical Decision Making 42-year-old Afro-[place]ish female presented for evaluation of cough for the last 2 weeks. PERC negative and low risk on [place] for PE. On physical examination lungs are clear to auscultation bilaterally and a little signs are stable. Remainder of physical exam is benign. Concern for pneumonia versus influenza and will obtain chest x-ray, influence swab, and provide IM Toradol for symptom relief. Chest x-ray revealed findings consider with bronchitis and influenza was negative. Patient reevaluated and had some improvement with the breathing treatment. She was informed of results and that she would be given a prescription for a Z-Yvon as well as Tessalon Perles for her cough. Advised to make an appointment with her primary care physician and given strict return instructions. The patient acknowledged an understanding of all information provided and agreed with this plan of care. - Lab Data Lab Results 12/27/17 Range/Units 15:50 Influenza Type A RNA Not Detected (Not Detectd) Influenza Type B (PCR) Not Detected (Not Detectd) Disposition Clinical Impression: URI (upper respiratory infection) Disposition: HOME SELF-CARE Condition: Stable Instructions: Upper Respiratory Infection (ED) Additional Instructions: Please use medication as discussed. Please follow up with family doctor if symptoms have not improved over the next two days. Please return to the emergency room if your symptoms increase or worsen or for any other concerns. Prescriptions: Azithromycin 250 mg PO DAILY 4 Days #3 tab Benzonatate [Tessalon Perles] 200 mg PO TID PRN #30 capsule PRN Reason: Cough Referrals: Smita Mckeon MD [Primary Care Provider] - 1-2 days Time of Disposition: 16:55
--- NOTE | 2017-12-27 16:27 | XR ---
EXAMINATION TYPE: XR chest 2V DATE OF EXAM: 12/27/2017 COMPARISON: 02/28/2017 HISTORY: 42-year-old female with cough for a couple weeks TECHNIQUE: AP and lateral views FINDINGS: Heart normal size. Aorta and pulmonary vasculature within normal limits. There is mild interstitial p rominence noted throughout. No consolidation or pleural effusion. Rightward scoliotic curvature mid t horacic spine. IMPRESSION: Accentuation of interstitium could reflect bronchitis or asthma. Otherwise, no acute cardiopulmonary process.
[2017-12-27] MEDS ORDERED: AZITHROMYCIN 500 MG TAB PO STA (16:52)
[2017-12-27] MEDS ORDERED: FLUCONAZOLE 150 MG TAB PO STA (17:23)
[2017-12-27 17:28] VITALS: BP 160/82; PULSE 86; RESP 18; TEMP 98.2
== END 2017-12-27 18:00 | disposition home or self-care (01) ==
LOC: EC 15:17
DX: J06.9 Acute upper respiratory infection, unspecified (principal); F32.9 Major depressive disorder, single episode, unspecified; F41.9 Anxiety disorder, unspecified; F17.200 Nicotine dependence, unspecified, uncomplicated; Z79.3 Long term (current) use of hormonal contraceptives; Z79.899 Other long term (current) drug therapy; Z88.8 Allergy status to other drugs, medicaments and biological substances
CPT/HCPCS: 94640; 87502; 71046; 99284; 96372; J1885

== ENCOUNTER 2019-01-06 22:17 | Emergency (ER) | payer OTHER ==
[2019-01-06] MEDS ORDERED: SODIUM CHLORIDE 0.9% 1,000 ML IV STA ×2 (22:38→23:29)
--- NOTE | 2019-01-06 22:39 | ED ---
Abdominal Pain HPI - General Chief Complaint: Abdominal Pain Stated Complaint: Abd pain Time Seen by Provider: 01/06/19 22:38 Source: patient Mode of arrival: ambulatory Limitations: no limitations - History of Present Illness Initial Comments: Mr. Manzanares is a pleasant 43-year-old female who comes to the emergency department today for evaluation of left lower quadrant abdominal pain. Patient reports that over the past couple days she's had some generalized abdominal discomfort she has taken some stool softeners and Pepto-Bismol. She reports that yesterday she felt like she had some firmness in her upper abdomen and epigastrium and was concerned that she may have constipation or bowel obstruction. She has no history of bowel obstruction. She reports that she had a normal bowel movement today but did notice some bright red bleeding upon wiping however she's experienced this chronically due to hemorrhoids. Patient states that this evening she is having worsening pain in her left lower quadrant radiating into her groin. She is not having any dysuria or hematuria. Patient did treat symptoms of vaginal pruritus with [id number] yeast infection treatment last week with complete resolution of those symptoms. She reports that she was previously on Depo-Provera for control she's been off that for approximately 6 months, she reports that she had a normal period in September and only spotting in October and November however she does not believe she is . - Related Data Home Medications Medication Instructions Recorded Confirmed Hydrochlorothiazide [Hydrodiuril] 25 mg PO DAILY 12/27/17 01/06/19 Ibuprofen [Motrin] 800 mg PO AC-TID PRN 12/27/17 01/06/19 Calcium Carbonate [Calcium] 600 mg PO DAILY 01/06/19 01/06/19 Cholecalciferol [Vitamin D3] 1,000 unit PO DAILY 01/06/19 01/06/19 Iron 18 mg PO DAILY 01/06/19 01/06/19 Methimazole [Tapazole] 5 mg PO DAILY 01/06/19 01/06/19 Propranolol HCl [Inderal Xl] 80 mg PO DAILY 01/06/19 01/06/19 Sertraline [Zoloft] 100 mg PO DAILY 01/06/19 01/06/19 Previous Rx's Medication Instructions Recorded Aspirin 81 mg PO DAILY #30 03/02/17 Fluconazole [Diflucan] 150 mg PO ONCE #2 tab 01/07/19 Nitrofurantoin Monohyd/M-Cryst 100 mg PO Q12HR #10 cap 01/07/19 [Macrobid] Allergies Allergy/AdvReac Type Severity Reaction Status Date / Time citalopram hydrobromide AdvReac Severe Migraine Verified 01/06/19 22:49 [From [facility]] Review of Systems ROS Statement: Those systems with pertinent positive or pertinent negative responses have been documented in the HPI. ROS Other: All systems not noted in ROS Statement are negative. Past Medical History Past Medical History: Hyperlipidemia, Hypertension, Osteoarthritis (OA) Additional Past Medical History / Comment(s): ibs chronic pain seasonal allergies PCOS History of Any Multi-Drug Resistant Organisms: None Reported Past Surgical History: Cholecystectomy, Orthopedic Surgery Additional Past Surgical History / Comment(s): colonoscopy, d & c Past Psychological History: Anxiety, Depression Smoking Status: Current every day smoker Past Alcohol Use History: Rare Past Drug Use History: None Reported - Past Family History Father Family Medical History: Diabetes Mellitus Mother Family Medical History: No Reported History General Exam - General Exam Comments Initial Comments: Physical Exam GENERAL: Patient is well-developed and well-nourished. Patient is nontoxic and well-hydrated and is in no distress. HENT: Normocephalic, Atraumatic. EYES: PERRL, EOMI PULMONARY: Unlabored respirations. No audible rales rhonchi or wheezing was noted. CARDIOVASCULAR: There is a regular rate and rhythm without any murmurs gallops or rubs. ABDOMEN: Obese Soft with normal bowel sounds. Mild tenderness to palpation of the left lower quadrant SKIN: Skin is clear with no lesions or rashes and otherwise unremarkable. : Normal external genitalia Vaginal vault with thick white discharge concerning for yeast infection No cervical motion tenderness NEUROLOGIC: Patient is alert and oriented x3. Moving all extremities spontaneously MUSCULOSKELETAL: Normal extremities with adequate strength and full range of motion. No lower extremity swelling or edema. No calf tenderness. PSYCHIATRIC: Normal psychiatric evaluation. Limitations: no limitations Limitations: no limitations Course Vital Signs 01/06/19 22:28 Temperature 98.6 F Pulse Rate 119 H Respiratory 18 Rate Blood Pressure 123/81 O2 Sat by Pulse 99 Oximetry Medical Decision Making - Medical Decision Making The patient was seen and evaluated history is obtained from the patient extends morbidly obese 43-year-old female with chronic constipation and irritable bowel presents with left lower quadrant abdominal pain. Patient reports that she was self treating for a vaginal yeast infection last week and believes that that has improved as she's not having as much pruritus of the vulva And patient also reports she has chronic constipation and hemorrhoids Labs and imaging were ordered Labs revealed mild leukocytosis urinalysis reveals a urinary tract infection and pelvic exam did show thick white discharge concerning for vaginal yeast infection there is no purulent discharge or cervical motion tenderness however the patient does have concern for possible sexual transmitted infection would like to be treated Medications were ordered as well as genital cultures She received Rocephin for the urinary tract infection as well she'll be discharged home on Macrobid for the UTI and a flu can for vaginal yeast infection Computed tomography scan reveals right-sided ovarian cysts which is an incidental finding there is no signs of bowel inflammation or obstruction is results were discussed with the patient who expresses relief. 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 - Lab Data Result diagrams: 01/06/19 23:10 01/06/19 23:10 Lab Results 01/06/19 01/06/19 01/06/19 Range/Units 23:00 23:00 23:10 WBC (3.8-10.6) k/uL RBC (3.80-5.40) m/uL Hgb (11.4-16.0) gm/dL Hct (34.0-46.0) % MCV (80.0-100.0) fL MCH (25.0-35.0) pg MCHC (31.0-37.0) g/dL RDW (11.5-15.5) % Plt Count (150-450) k/uL Neutrophils % % Lymphocytes % % Monocytes % % Eosinophils % % Basophils % % Neutrophils # (1.3-7.7) k/uL Lymphocytes # (1.0-4.8) k/uL Monocytes # (0-1.0) k/uL Eosinophils # (0-0.7) k/uL Basophils # (0-0.2) k/uL PT (9.0-12.0) sec INR (<1.2) APTT (22.0-30.0) sec Sodium 136 L (137-145) mmol/L Potassium 3.5 (3.5-5.1) mmol/L Chloride 104 (98-107) mmol/L Carbon Dioxide 23 (22-30) mmol/L Anion Gap 9 mmol/L BUN 12 (7-17) mg/dL Creatinine 1.18 H (0.52-1.04) mg/dL Est GFR (CKD-EPI)AfAm 66 (>60 ml/min/1.73 sqM) Est GFR (CKD-EPI)NonAf 57 (>60 ml/min/1.73 sqM) Glucose 105 H (74-99) mg/dL Calcium 9.0 (8.4-10.2) mg/dL Total Bilirubin 0.3 (0.2-1.3) mg/dL AST 19 (14-36) U/L ALT 30 (9-52) U/L Alkaline Phosphatase 81 (38-126) U/L Total Protein 6.4 (6.3-8.2) g/dL Albumin 3.8 (3.5-5.0) g/dL Amylase 52 (30-110) U/L Lipase 59 (23-300) U/L Urine Color Yellow Urine Appearance Cloudy H (Clear) Urine pH 6.0 (5.0-8.0) Ur Specific [place] 1.019 (1.001-1.035) Urine Protein 1+ H (Negative) Urine Glucose (UA) 1+ H (Negative) Urine Ketones Negative (Negative) Urine Blood Moderate H (Negative) Urine Nitrite Negative (Negative) Urine Bilirubin Negative (Negative) Urine Urobilinogen <2.0 (<2.0) mg/dL Ur Leukocyte Esterase Large H (Negative) Urine RBC 6 H (0-5) /hpf Urine WBC 51 H (0-5) /hpf Urine WBC Clumps Moderate H (None) /hpf Ur Squamous Epith Cells 16 H (0-4) /hpf Hyaline Casts 291 H (0-2) /lpf Urine Mucus Rare H (None) /hpf Urine HCG, Qual Not Detected (Not Detectd) 01/06/19 01/06/19 Range/Units 23:10 23:10 WBC 16.2 H (3.8-10.6) k/uL RBC 4.25 (3.80-5.40) m/uL Hgb 13.3 (11.4-16.0) gm/dL Hct 41.2 (34.0-46.0) % MCV 97.1 (80.0-100.0) fL MCH 31.3 (25.0-35.0) pg MCHC 32.2 (31.0-37.0) g/dL RDW 13.5 (11.5-15.5) % Plt Count 369 (150-450) k/uL Neutrophils % 68 % Lymphocytes % 22 % Monocytes % 5 % Eosinophils % 3 % Basophils % 1 % Neutrophils # 11.0 H (1.3-7.7) k/uL Lymphocytes # 3.5 (1.0-4.8) k/uL Monocytes # 0.8 (0-1.0) k/uL Eosinophils # 0.4 (0-0.7) k/uL Basophils # 0.1 (0-0.2) k/uL PT 9.8 (9.0-12.0) sec INR 0.9 (<1.2) APTT 24.7 (22.0-30.0) sec Sodium (137-145) mmol/L Potassium (3.5-5.1) mmol/L Chloride (98-107) mmol/L Carbon Dioxide (22-30) mmol/L Anion Gap mmol/L BUN (7-17) mg/dL Creatinine (0.52-1.04) mg/dL Est GFR (CKD-EPI)AfAm (>60 ml/min/1.73 sqM) Est GFR (CKD-EPI)NonAf (>60 ml/min/1.73 sqM) Glucose (74-99) mg/dL Calcium (8.4-10.2) mg/dL Total Bilirubin (0.2-1.3) mg/dL AST (14-36) U/L ALT (9-52) U/L Alkaline Phosphatase (38-126) U/L Total Protein (6.3-8.2) g/dL Albumin (3.5-5.0) g/dL Amylase (30-110) U/L Lipase (23-300) U/L Urine Color Urine Appearance (Clear) Urine pH (5.0-8.0) Ur Specific [place] (1.001-1.035) Urine Protein (Negative) Urine Glucose (UA) (Negative) Urine Ketones (Negative) Urine Blood (Negative) Urine Nitrite (Negative) Urine Bilirubin (Negative) Urine Urobilinogen (<2.0) mg/dL Ur Leukocyte Esterase (Negative) Urine RBC (0-5) /hpf Urine WBC (0-5) /hpf Urine WBC Clumps (None) /hpf Ur Squamous Epith Cells (0-4) /hpf Hyaline Casts (0-2) /lpf Urine Mucus (None) /hpf Urine HCG, Qual (Not Detectd) Disposition Clinical Impression: UTI (urinary tract infection), Vaginal yeast infection Disposition: HOME SELF-CARE Condition: Stable Instructions (If sedation given, give patient instructions): Safe Sex (ED), Urinary Tract Infection in Women (ED), Yeast Infection (ED) Additional Instructions: A been prescribed fluconazole. Take the first dose on day 1 if you continue have symptoms of vaginal itching or discharge repeat the dose in 3 days. Your tested for sexually transmitted infections while in the emergency department. He will be contacted if these results are positive. Prescriptions: Fluconazole [Diflucan] 150 mg PO ONCE #2 tab Nitrofurantoin Monohyd/M-Cryst [Macrobid] 100 mg PO Q12HR #10 cap Is patient prescribed a controlled substance at d/c from ED?: No Referrals: Smita Mckeon MD [Primary Care Provider] - 1-2 days
[2019-01-06 23:17] LABS: Appearance,Urine Cloudy (Clear); Bilirubin,Urine Negative (Negative); Blood,Urine Moderate (Negative); Color,Urine Yellow; Glucose,Urine (UA) 1+ (Negative); Hyaline Casts,Urine 291 /lpf (0-2); Ketones,Urine Negative (Negative); Leukocyte Esterase,Urine Large (Negative); Mucus,Urine Rare /hpf; Nitrite,Urine Negative (Negative); Protein,Urine 1+ (Negative); RBC,Urine 6 /hpf (0-5); Specific Gravity,Urine 1.019 (1.001-1.035); Squamous Epithelial Cell,Urine 16 /hpf (0-4); Urobilinogen,Urine <2.0 mg/dL (<2.0); WBC,Urine 51 /hpf (0-5)
[2019-01-06 23:24] LABS: Basophils # (A) 0.1 k/uL (0-0.2); Basophils % (A) 1 %; Eosinophils # (A) 0.4 k/uL (0-0.7); Eosinophils % (A) 3 %; HCT 41.2 % (34.0-46.0); HGB 13.3 gm/dL (11.4-16.0); Lymphocytes # (A) 3.5 k/uL (1.0-4.8); Lymphocytes % (A) 22 %; MCH 31.3 pg (25.0-35.0); MCHC 32.2 g/dL (31.0-37.0); MCV 97.1 fL (80.0-100.0); Mean Platelet Volume 6.8; Monocytes # (A) 0.8 k/uL (0-1.0); Monocytes % (A) 5 %; Neutrophils % (A) 68 %; Platelet Count 369 k/uL (150-450); RBC 4.25 m/uL (3.80-5.40); RDW 13.5 % (11.5-15.5); WBC 16.2 k/uL (3.8-10.6)
[2019-01-06 23:34] LABS: Albumin 3.8 g/dL (3.5-5.0); INR 0.9 (<1.2); Partial Thromboplastin Time 24.7 sec (22.0-30.0); Potassium 3.5 mmol/L (3.5-5.1); Prothrombin Time 9.8 sec (9.0-12.0); Total Bilirubin 0.3 mg/dL (0.2-1.3); Total Protein 6.4 g/dL (6.3-8.2)
--- NOTE | 2019-01-07 00:31 | CT ---
EXAM: CT Abdomen and Pelvis With Intravenous Contrast CLINICAL HISTORY: ITS.REASON CT Reason: Pain LLQ TECHNIQUE: Axial computed tomography images of the abdomen and pelvis with intravenous contrast. CTDI is 18.20 mGy and DLP is 567.60 mGy-cm. This CT exam was performed using one or more of the following dose reduction techniques: automated exposure control, adjustment of the mA and/or kV according to patient size, and/or use of iterative reconstruction technique. COMPARISON: No relevant prior studies available. FINDINGS: Lung bases: Unremarkable. No mass. No consolidation. ABDOMEN: Liver: Unremarkable. No mass. Gallbladder and bile ducts: Cholecystectomy. No ductal dilation. Pancreas: Unremarkable. No mass. No ductal dilation. Spleen: Unremarkable. No splenomegaly. Adrenals: Unremarkable. No mass. Kidneys and ureters: Renal cortical thinning bilaterally. Small cyst at the posterior aspect of the left kidney. No obstructive uropathy. Stomach and bowel: See below. PELVIS: Appendix: No appendicitis, colitis, diverticulitis or bowel obstruction. Bladder: Unremarkable. No mass. Reproductive: No adnexal masses. ABDOMEN and PELVIS: Intraperitoneal space: 4.5 cm ovoid cyst involving the right ovary is probably benign. No surrounding inflammation or free fluid. No free air. Bones/joints: No acute fracture. No dislocation. Soft tissues: Unremarkable. Vasculature: Unremarkable. No abdominal aortic aneurysm. Lymph nodes: Unremarkable. No enlarged lymph nodes. IMPRESSION: No urolithiasis or diverticulitis. No other acute or inflammatory disease or bowel obstruction. Incidental 4.5 cm circumscribed. This lesion involving the right ovary without adjacent free fluid or inflammation.
[2019-01-07] MEDS ORDERED: AZITHROMYCIN 500 MG TAB PO STA (01:18)
[2019-01-07] MEDS ORDERED: cefTRIAXone 250 MG VIAL IM STA (01:18)
[2019-01-07] MEDS ORDERED: KETOROLAC 30 MG/ML 1 ML VIAL IVP ONE (01:20)
[2019-01-07 03:15] VITALS: BP 135/87; PULSE 96; RESP 19; TEMP 98.4
[2019-01-08 15:17] LABS: N. gonorrhoeae,PCR Negative (Neg,Equiv); Neisseria Source Endocervical
[2019-01-08 15:20] LABS: C. trachomatis,PCR Negative (Neg,Equiv); Chlamydia trachomatis Source Endocervical
== END 2019-01-07 02:13 | disposition home or self-care (01) ==
LOC: EC 22:17
DX: N39.0 Urinary tract infection, site not specified (principal); B37.3 Candidiasis of vulva and vagina; I10 Essential (primary) hypertension; M19.90 Unspecified osteoarthritis, unspecified site; F32.9 Major depressive disorder, single episode, unspecified; F41.9 Anxiety disorder, unspecified; F17.200 Nicotine dependence, unspecified, uncomplicated; Z79.899 Other long term (current) drug therapy; Z88.8 Allergy status to other drugs, medicaments and biological substances; Z90.49 Acquired absence of other specified parts of digestive tract
CPT/HCPCS: 36415; 80053; 82150; 83690; 85025; 85610; 85730; 81001; 81025; 87040; 87808; 87491; 87591; 87070; 74177; 99284; 96365; 96375; 96361; 96372; J0696 ×2; J1885; Q9967; 87205

== ENCOUNTER → 2019-01-11 | Outpatient (CLI) | payer OTHER ==
--- NOTE | 2019-01-16 13:56 | MM ---
Reason for exam: screening (asymptomatic). Physical Findings: A clinical breast exam by your physician is recommended on an annual basis and results should be correlated with mammographic findings. MG 3D Screening Mammo W/Cad Bilateral CC and MLO view(s) were taken. XCCL view(s) were taken of the right breast. No prior studies available for comparison. There are scattered fibroglandular densities. Benign appearing bilateral calcifications. No suspicious abnormality. ASSESSMENT: Benign, BI-RAD 2 RECOMMENDATION: Routine screening mammogram of both breasts in 1 year.
== END ==
LOC: RADMAMWWP 14:49
PROVIDERS: ATTEND Family Medicine
DX: Z12.31 Encounter for screening mammogram for malignant neoplasm of breast (principal)
CPT/HCPCS: 77063; 77067

== ENCOUNTER → 2019-06-25 | Outpatient (CLI) | payer OTHER ==
--- NOTE | 2019-06-25 16:33 | US ---
EXAMINATION TYPE: US transvaginal DATE OF EXAM: 06/25/2019 COMPARISON: NONE CLINICAL HISTORY: R10.2 Pelvic and perineal pain. TECHNIQUE: Transvaginal (TV). Date of LMP: Patient on depo shot and does not have cycles. EXAM MEASUREMENTS: Uterus: 8.5 x 4.5 x 4.9 cm Endometrial Stripe: 0.4 cm Right Ovary: 5.1 x 2.9 x 3.4 cm Left Ovary: 2.8 x 1.8 x 2.6 cm 1. Uterus: Retroverted small posterior fibroid measures 1.2 x 0.7 x 1.3 cm 2. Endometrium: measures 0.4 cm 3. Right Ovary: Multiple cysts, largest is complex and measures 1.8 x 2.0 x 2.2 cm, and another rony ures 1.9 x 1.5 x 2.2 cm. 4. Left Ovary: wnl 5. Bilateral Adnexa: wnl 6. Posterior cul-de-sac: no free fluid IMPRESSION: 1. Large complex cysts right ovary. Follow-up is recommended. 2. Uterine fibroid
== END | disposition home or self-care (01) ==
LOC: RADUSWWP 12:21
PROVIDERS: ATTEND Family Medicine
DX: D25.9 Leiomyoma of uterus, unspecified (principal); N83.291 Other ovarian cyst, right side
CPT/HCPCS: 76830

== ENCOUNTER 2019-12-07 09:45 | Emergency (ER) | payer OTHER ==
[2019-12-07 09:51] VITALS: TEMP 99
[2019-12-07] MEDS ORDERED: BUPIVACAINE (PF) 0.5% 30 ML VIAL SQ STA (11:20)
[2019-12-07] MEDS ORDERED: Acetaminophen-Codeine 300-30mg TAB PO STA (11:20)
[2019-12-07 11:21] VITALS: RESP 20
[2019-12-07] MEDS ORDERED: PENICILLIN VK 500MG STARTER 4 TAB BTL PO STA (11:21)
--- NOTE | 2019-12-07 11:53 | ED ---
ENT HPI - General Chief complaint: Dental/Oral Stated complaint: Dental Time Seen by Provider: 12/07/19 09:55 Source: patient, RN notes reviewed, old records reviewed Mode of arrival: ambulatory Limitations: no limitations - History of Present Illness Initial comments: This patient's a 44-year-old female she presents emergency room today with complaint lower dental pain. Patient reports that she does have a metal plate with false teeth that her causing her dictation to her current teeth. Patient states that she has had worsening symptoms for the past 2 weeks. Denies any fevers or chills. She reports that she's noticed some lower jaw swelling. Patient states that she has no other significant complaints. - Related Data Home Medications Medication Instructions Recorded Confirmed Hydrochlorothiazide [Hydrodiuril] 25 mg PO DAILY 12/27/17 01/06/19 Ibuprofen [Motrin] 800 mg PO AC-TID PRN 12/27/17 01/06/19 Calcium Carbonate [Calcium] 600 mg PO DAILY 01/06/19 01/06/19 Cholecalciferol [Vitamin D3] 1,000 unit PO DAILY 01/06/19 01/06/19 Iron 18 mg PO DAILY 01/06/19 01/06/19 Methimazole [Tapazole] 5 mg PO DAILY 01/06/19 01/06/19 Propranolol HCl [Inderal Xl] 80 mg PO DAILY 01/06/19 01/06/19 Sertraline [Zoloft] 100 mg PO DAILY 01/06/19 01/06/19 Previous Rx's Medication Instructions Recorded Aspirin 81 mg PO DAILY #30 03/02/17 Fluconazole [Diflucan] 150 mg PO ONCE #2 tab 01/07/19 Nitrofurantoin Monohyd/M-Cryst 100 mg PO Q12HR #10 cap 01/07/19 [Macrobid] Penicillin V Potassium [Pen Vee K] 500 mg PO QID #40 tablet 12/07/19 Allergies Allergy/AdvReac Type Severity Reaction Status Date / Time citalopram hydrobromide AdvReac Severe Migraine Verified 12/07/19 09:47 [From [facility]ure[facility]] Review of Systems ROS Statement: Those systems with pertinent positive or pertinent negative responses have been documented in the HPI. ROS Other: All systems not noted in ROS Statement are negative. Past Medical History Past Medical History: Hyperlipidemia, Hypertension, Osteoarthritis (OA) Additional Past Medical History / Comment(s): ibs chronic pain seasonal allergies PCOS History of Any Multi-Drug Resistant Organisms: None Reported Past Surgical History: Cholecystectomy, Orthopedic Surgery Additional Past Surgical History / Comment(s): colonoscopy, d & c Past Psychological History: Anxiety, Depression Smoking Status: Current every day smoker Past Alcohol Use History: Rare Past Drug Use History: None Reported - Past Family History Father Family Medical History: Diabetes Mellitus Mother Family Medical History: No Reported History General Exam - General Exam Comments Initial Comments: 44-year-old female, no acute distress. Limitations: no limitations General appearance: alert, in no apparent distress Head exam: Present: atraumatic, normocephalic, normal inspection Eye exam: Present: normal appearance, PERRL, EOMI, other. Absent: scleral icter us, conjunctival injection, periorbital swelling ENT exam: Present: normal exam, normal oropharynx, mucous membranes moist, other (Poor dentition. Dental caries bilaterally. Evidence of broken tooth #28.) Neck exam: Present: normal inspection. Absent: tenderness, meningismus, lymphadenopathy Respiratory exam: Present: normal lung sounds bilaterally. Absent: respiratory distress, wheezes, rales, rhonchi, stridor Cardiovascular Exam: Present: regular rate, normal rhythm, normal heart sounds. Absent: systolic murmur, diastolic murmur, rubs, gallop, clicks GI/Abdominal exam: Present: soft, normal bowel sounds. Absent: distended, tenderness, guarding, rebound, rigid Extremities exam: Present: normal inspection, full ROM, normal capillary refill. Absent: tenderness, pedal edema, joint swelling, calf tenderness Back exam: Present: normal inspection Neurological exam: Present: alert, oriented X3, CN II-XII intact Psychiatric exam: Present: normal affect, normal mood Skin exam: Present: warm, dry, intact, normal color. Absent: rash Course Vital Signs 12/07/19 12/07/19 12/07/19 09:47 09:50 12:02 Temperature 99 F Pulse Rate 76 Respiratory 18 20 20 Rate Blood Pressure 140/85 O2 Sat by Pulse 98 Oximetry 12/07/19 12:05 Temperature Pulse Rate 78 Respiratory 20 Rate Blood Pressure 144/88 O2 Sat by Pulse 100 Oximetry Procedures - Nerve Block Local Anesthetic Used: Lidocaine 1% Amount of anesthesia used: 6 Side: left, right Intraoral Nerve Block: inferior alveolar Procedure Successful: Yes Complications: none Patient Tolerated Procedure: well, no complications Medical Decision Making - Medical Decision Making 44-year-old female presents emergency department today for UL for concern for dental pain. Patient reports significant worsening pain for the past 2 weeks. The state Patient has no fevers or chills. Patient has evidence of broken tooth. Patient will be started on antibiotics. She is given dental block. It have some relief. Patient advised to follow-up with her dentist Patient is an upcoming appointment on Monday. Discussed return parameters. Disposition Clinical Impression: Pain, dental Disposition: HOME SELF-CARE Condition: Good Instructions (If sedation given, give patient instructions): Toothache (ED) Additional Instructions: [facility] [place] [address] [phone] (existing clients only) For new clients: [phone] 1st consult: $50 (includes Xrays) Usually 30% less then private dentist for visits after. [employer] Have to pay $50 for Xrays anmd rest is covered. [phone] Prescriptions: Penicillin V Potassium [Pen Vee K] 500 mg PO QID #40 tablet Is patient prescribed a controlled substance at d/c from ED?: No If prescribed controlled substance>3 days was MAPS reviewed?: Prescribed <3 Days Referrals: Armando Blue MD [Primary Care Provider] - 1-2 days Time of Disposition: 11:53
[2019-12-07] MEDS ORDERED: LIDOCAINE 1% INJ 10MG/ML (20 ML MDV) SQ ONE (12:00)
[2019-12-07 12:06] VITALS: BP 144/88; PULSE 78
== END 2019-12-07 12:03 | disposition home or self-care (01) ==
LOC: EC 09:45
DX: K02.9 Dental caries, unspecified (principal); K08.56 Poor aesthetic of existing restoration of tooth; F17.200 Nicotine dependence, unspecified, uncomplicated; M19.90 Unspecified osteoarthritis, unspecified site; I10 Essential (primary) hypertension; F32.9 Major depressive disorder, single episode, unspecified; F41.9 Anxiety disorder, unspecified; Z79.899 Other long term (current) drug therapy; Z88.8 Allergy status to other drugs, medicaments and biological substances; K08.409 Partial loss of teeth, unspecified cause, unspecified class; Z53.8 Procedure and treatment not carried out for other reasons
CPT/HCPCS: 64450; 99283; J2001

== ENCOUNTER → 2020-03-25 | Outpatient (CLI) | payer OTHER ==
--- NOTE | 2020-03-25 20:04 | CONS ---
CONSULTATION DATE OF SERVICE: 03/25/2020 This patient is a 44-year-old lady who has been evaluated in the sleep center for possible obstructive sleep apnea-hypopnea syndrome. HISTORY OF PRESENT ILLNESS/SLEEP-WAKE EVALUATION: Patient's usual sleep schedule is from 11:30 p.m. until 6:30 a.m., and then she sleeps until between 8:30 and 11:30 a.m. She does have problems with falling asleep. She has a TV set in the bedroom. She usually sleeps on the back or side position. According to her , who was present during the interview, she has very loud snoring, witnessed episodes of stopped breathing during sleep, awakenings with grinding teeth, dry mouth, panic attack, palpitations, gasping for air, sleeptalking and sweating. The patient wakes up from sleep up to 4 times with 3 episodes of nocturia. During the day the patient has difficulties paying attention, worries about his sleep, has problems with memory, concentration, irritability, depression, anxiety, claustrophobia. [place] Sleepiness Scale is 4. Usually she does not take naps. PAST MEDICAL HISTORY: Positive for hypertension, mini-stroke, hyperlipidemia, bipolar, allergies. PAST SURGICAL HISTORY: Knee surgery. MEDICATIONS: Aspirin, atorvastatin, albuterol, Depo Provera, fluticasone, hydrochlorothiazide, Motrin Osteoarthritis, Zyrtec, Xanax, propranolol, Zoloft, trazodone, vitamin D, oxycodone. SOCIAL HISTORY: Positive for smoking since age 19. FAMILY HISTORY: Hypertension, epilepsy, diabetes, restless legs. REVIEW OF SYSTEMS: Multiple awakenings from sleep, tiredness during the day. PHYSICAL EXAMINATION: GENERAL: A pleasant -[place] lady without distress. VITAL SIGNS: BP 112/68, HR 96, RR 16, height 5 feet 3 inches, weight 216, BMI 38.2, temperature 98.9, oxygen saturation at room air 98%. HEENT: PERRLA, EOMI. Evaluation of oropharynx showed tongue protrudes midline. Low position of soft palate. NECK: Supple. No JVD. Thyroid is not palpable. Neck measures 13-1/2 inches in circumference. LUNGS: Clear to percussion and to auscultation. Good air exchange. No wheezing or rhonchi. HEART: S1, S2 regular. No murmurs, gallops or rubs. ABDOMEN: Obese. EXTREMITIES: No clubbing or cyanosis. 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 Cranial nerves 2 to 7 intact. There is no fasciculation or atrophy. noted. No focal deficits observed. IMPRESSION: 1. Loud snoring, witnessed episodes of stopped breathing during sleep, history of oxygen desaturation during sleep; obstructive sleep apnea-hypopnea syndrome. 2. History of hypertension. 3. History of bipolar. 4. Hyperlipidemia. 5. History of allergies. 6. Status post knee surgery. PLAN: 1. Polysomnography for evaluation of patient's breathing during sleep. 2. CPAP/BiPAP titration if sleep study confirms obstructive sleep apnea-hypopnea syndrome. 3. Preferable position during sleep on the side. 4. No driving if patient feels any sleepiness. 5. I will see patient for follow up visit to explain results of testing and following plan. Thank you very much for referring this patient for consultation. Sincerely, Fortino Prasad MD, PhD, FAASM Diplomat of [place] [employer] [place] [employer] [facility] MMODL / IJN: [id number] /
== END | disposition home or self-care (01) ==
LOC: SLEEP 16:00
PROVIDERS: ATTEND Internal Medicine
DX: G47.33 Obstructive sleep apnea (adult) (pediatric) (principal); I10 Essential (primary) hypertension; E78.5 Hyperlipidemia, unspecified; Z96.659 Presence of unspecified artificial knee joint; T78.40XA Allergy, unspecified, initial encounter; Z86.59 Personal history of other mental and behavioral disorders
CPT/HCPCS: 99211

== ENCOUNTER → 2020-06-10 | Outpatient (CLI) | payer OTHER ==
--- NOTE | 2020-06-10 22:42 | MR ---
EXAMINATION TYPE: MR brain wo/w con DATE OF EXAM: 06/10/2020 COMPARISON: Prior MRI brain March 01, 2017. 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 TECHNIQUE: Multiplanar, multisequence images of the brain and brainstem is performed without and with IV contras t, utilizing 9.5ml mL intravenous Gadavist . FINDINGS: Diffusion weighted images demonstrate no evidence of a recent infarct or other diffusion ab normality. There is no extra-axial fluid collection or significant white matter signal abnormality. The ventricular system and cisternal spaces are normal in size and appearance. The brain volume is age appropriate. Midline structures demonstrate normal morphology. Suprasellar cistern is maintained. The craniocervi raysa junction appears within normal limits. Post contrast images demonstrate no abnormal enhancement. The dural venous sinuses appear patent. Artifact distortion at the level of anterior globes is prese nt. Visualized paranasal sinuses are clear. 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 No significant change from prior. No new findings are evident.
== END | disposition home or self-care (01) ==
LOC: RADMRIMAIN 19:29
PROVIDERS: ATTEND Neurological Surgery
DX: E34.8 Other specified endocrine disorders (principal); D48.9 Neoplasm of uncertain behavior, unspecified
CPT/HCPCS: 70553; A9585

== ENCOUNTER 2020-08-05 07:45 | Day surgery (SDC) | payer OTHER ==
[2020-07-31 17:13] VITALS: BMI 35.9
[~2020-08-05 07:45] MED LIST: LACTATED RINGERS 1,000 ML IV SCH; LIDOCAINE 1% (10MG/ML) FOR IV START INTRADERMA PRN
[2020-08-05 08:04] VITALS: RESP 16; TEMP 97
[2020-08-05 08:34] LABS: Glucose,Whole Blood 109 mg/dL (75-99)
[2020-08-05] MEDS ORDERED: LIDOCAINE 1% INJ 10MG/ML (20 ML MDV) ONE (08:55)
[2020-08-05] MEDS ORDERED: PROPOFOL 10 MG/ML 20 ML VIAL IV ONE (08:55)
--- NOTE | 2020-08-05 08:56 | P.GSHP ---
History of Present Illness H&P Date: 08/05/20 CHIEF COMPLAINT: Rectal bleeding gastric ulcer HISTORY OF PRESENT ILLNESS: The patient is a 44-year-old female who presents with rectal bleeding gastric ulcer. Upper and lower endoscopy were offered for further evaluation and management. PAST MEDICAL HISTORY: Please see list. PAST SURGICAL HISTORY: Please see list. MEDICATIONS: Please see list. ALLERGIES: Please see list. SOCIAL HISTORY: No illicit drug use FAMILY HISTORY: No reports of Crohn disease or ulcerative colitis. REVIEW OF ORGAN SYSTEMS: CONSTITUTIONAL: No reports of fevers or chills. GI: Denies any blood in stools or constipation. PHYSICAL EXAM: VITAL SIGNS: Stable GENERAL: Well-developed pleasant in no acute distress. HEENT: No scleral icterus. Extraocular movements grossly intact. Moist buccal mucosa. NECK: Supple without lymphadenopathy. CHEST: Unlabored respirations. Equal bilateral excursions. CARDIOVASCULAR: Regular rate and rhythm. Distal 2+ pulses. ABDOMEN: Soft, nondistended. MUSCULOSKELETAL: No clubbing, cyanosis, or edema. ASSESSMENT: 1. Rectal bleeding 2. Gastric ulcer PLAN: 1. Recommend proceeding with an upper and lower endoscopy Past Medical History Past Medical History: Diabetes Mellitus, Hyperlipidemia, Hypertension, Osteoart hritis (OA) Additional Past Medical History / Comment(s): ibs , seasonal allergies, PCOS, MIGRAINES History of Any Multi-Drug Resistant Organisms: None Reported Past Surgical History: Cholecystectomy, Orthopedic Surgery Additional Past Surgical History / Comment(s): colonoscopy, d & c. LT KNEE SX X 4. HEMORRHOID BANDING Past Anesthesia/Blood Transfusion Reactions: No Reported Reaction Smoking Status: Current every day smoker - Past Family History Father Family Medical History: Diabetes Mellitus Mother Family Medical History: No Reported History Medications and Allergies Home Medications Medication Instructions Recorded Confirmed Type Aspirin 81 mg PO DAILY #30 03/02/17 08/05/20 Rx Ibuprofen [Motrin] 800 mg PO AC-TID PRN 12/27/17 08/05/20 History hydroCHLOROthiazide [Hydrodiuril] 25 mg PO DAILY 12/27/17 08/05/20 History Propranolol HCl [Inderal Xl] 80 mg PO DAILY 01/06/19 07/31/20 History Sertraline [Zoloft] 100 mg PO DAILY 01/06/19 07/31/20 History Fluconazole [Diflucan] 150 mg PO ONCE #2 tab 01/07/19 08/05/20 Rx Ascorbic Acid [Vitamin C] 1,000 mg PO DAILY 07/31/20 07/31/20 History Atorvastatin [Lipitor] 20 mg PO HS 07/31/20 08/05/20 History Biotin 10,000 mcg PO DAILY 07/31/20 07/31/20 History Cyanocobalamin [Vitamin B-12] 500 mcg PO DAILY 07/31/20 07/31/20 History Fluticasone Nasal [place] [Flonase 2 spr EA NOSTRIL DAILY 07/31/20 08/05/20 History Nasal [place]] Glimepiride [Amaryl] 2 mg PO AC-BRKFST 07/31/20 08/05/20 History Hyoscyamine Sulfate [Levsin] 0.125 mg PO TID 07/31/20 08/05/20 History Medroxyprogesterone Acetate 150 mg IM Q90D 07/31/20 08/05/20 History [Depo-Provera] busPIRone HCl [Buspar] 5 mg PO DAILY 07/31/20 07/31/20 History oxyCODONE-APAP 7.5-325MG [Percocet 1 tab PO TID PRN 07/31/20 07/31/20 History 7.5-325 mg] traZODone HCL 50 mg PO HS 07/31/20 08/05/20 History Allergies Allergy/AdvReac Type Severity Reaction Status Date / Time citalopram hydrobromide AdvReac Severe Migraine Verified 07/31/20 16:55 [From Celexa] Surgical - Exam Vital Signs Temp Pulse Resp BP Pulse Ox 97.0 F L 90 16 124/62 100 08/05/20 08:02 08/05/20 08:02 08/05/20 08:02 08/05/20 08:02 08/05/20 08:02 Results - Labs Abnormal Lab Results - Last 24 Hours (Table) 08/05/20 Range/Units 08:27 POC Glucose (mg/dL) 109 H (75-99) mg/dL
--- NOTE | 2020-08-05 09:08 | P.PCN ---
Date of Procedure: 08/05/20 Description of Procedure: PREOPERATIVE DIAGNOSIS: History of gastric ulcers POSTOPERATIVE DIAGNOSIS: Superficial gastric ulcer without bleeding Acute and chronic gastritis Gastroesophageal reflux disease. OPERATION: Esophagogastroduodenoscopy with biopsies along antrum. SURGEON: Connie Cristobal MD ANESTHESIA: MAC. INDICATIONS: The patient is a 44-year-old female who presents with a history of gastric ulcers. Benefits and risks of the procedure were described. Informed consent was obtained. DESCRIPTION: The patient was brought into the endoscopy suite and laid in the left lateral decubitus position. An Olympus gastroscope was passed along the posterior oropharynx down to the distal esophagus where the squamocolumnar junction was encountered at 37 cm from the incisors. The stomach was entered and no bile reflux was found. Additional findings are listed below. Biopsies with cold forceps were obtained of the antrum. The first through third portion of the duodenum was examined and unremarkable. Retroflexion of the scope confirmed Hill grade 2 lower esophageal valve. The squamocolumnar junction demonstrated LA grade B erosive esophagitis. The stomach was desufflated. The patient tolerated the procedure well. FINDINGS: Squamocolumnar junction 37 cm from the incisors. Diaphragmatic hiatus at 37 cm. Hill grade 2 lower esophageal valve. LA grade B erosive esophagitis. No active duodenitis. Acute and chronic gastritis Superficial gastric ulcer, and biopsy RECOMMENDATIONS: Upper endoscopy as needed. Recommend omeprazole 40 mg daily for 4 weeks
--- NOTE | 2020-08-05 09:33 | P.PCN ---
Date of Procedure: 08/05/20 Description of Procedure: PREOPERATIVE DIAGNOSIS: History of rectal bleeding POSTOPERATIVE DIAGNOSIS: Complicated internal/external hemorrhoids, grade 4 OPERATION: Colonoscopy to the cecum, ileocecal valve and appendiceal orifice. SURGEON: Connie Cristobal MD. ANESTHESIA: MAC. INDICATIONS: The patient is a 44-year-old female who presents with rectal bleeding. Benefits and risks were described and informed consent was obtained. DESCRIPTION OF PROCEDURE: The patient had undergone Gatorade, MiraLAX and Dulcolax prep. She had been brought into the operating room and laid in the left lateral decubitus position. After adequate intravenous sedation, the rectum was examined with 2% lidocaine jelly. External hemorrhoids were encountered. The rectal tone was within normal limits. No lesions were palpated in the rectal vault. An Olympus colonoscope was advanced until the cecum, ileocecal valve and appendiceal orifice were clearly viewed. The prep was excellent. No scattered diverticulosis was encountered. No colonic polyps were found. No evidence of focal colitis was found. Retroflexion of the scope demonstrated grade 4 internal hemorrhoids without active bleeding or inflammation. The colon was desufflated. The patient had tolerated the procedure well. Withdrawal time was over 6 minutes. FINDINGS: Aronchick preparation quality scale 1 (1-5) Internal hemorrhoids, grade 4 External prolapsed hemorrhoids, grade 4 No scattered diverticulosis. No arteriovenous malformations. No adenomatous polyps. No focal colitis. RECOMMENDATIONS: Lower endoscopy in 5 years, 2024 Plan - Discharge Summary Discharge Rx Participant: No New Discharge Prescriptions: New Omeprazole [PriLOSEC] 40 mg PO DAILY #30 cap Continue Aspirin 81 mg PO DAILY #30 hydroCHLOROthiazide [Hydrodiuril] 25 mg PO DAILY Sertraline [Zoloft] 100 mg PO DAILY Propranolol HCl [Inderal Xl] 80 mg PO DAILY Fluconazole [Diflucan] 150 mg PO ONCE #2 tab oxyCODONE-APAP 7.5-325MG [Percocet 7.5-325 mg] 1 tab PO TID PRN PRN Reason: Pain Medroxyprogesterone Acetate [Depo-Provera] 150 mg IM Q90D Glimepiride [Amaryl] 2 mg PO AC-BRKFST Cyanocobalamin [Vitamin B-12] 500 mcg PO DAILY traZODone HCL 50 mg PO HS busPIRone HCl [Buspar] 5 mg PO DAILY Fluticasone Nasal [place] [Flonase Nasal [place]] 2 spr EA NOSTRIL DAILY Atorvastatin [Lipitor] 20 mg PO HS Hyoscyamine Sulfate [Levsin] 0.125 mg PO TID Biotin 10,000 mcg PO DAILY Ascorbic Acid [Vitamin C] 1,000 mg PO DAILY Discontinued Ibuprofen [Motrin] 800 mg PO AC-TID PRN PRN Reason: Pain Discharge Medication List Aspirin 81 mg PO DAILY #30 03/02/17 [Rx] hydroCHLOROthiazide [Hydrodiuril] 25 mg PO DAILY 12/27/17 [History] Propranolol HCl [Inderal Xl] 80 mg PO DAILY 01/06/19 [History] Sertraline [Zoloft] 100 mg PO DAILY 01/06/19 [History] Fluconazole [Diflucan] 150 mg PO ONCE #2 tab 01/07/19 [Rx] Ascorbic Acid [Vitamin C] 1,000 mg PO DAILY 07/31/20 [History] Atorvastatin [Lipitor] 20 mg PO HS 07/31/20 [History] Biotin 10,000 mcg PO DAILY 07/31/20 [History] Cyanocobalamin [Vitamin B-12] 500 mcg PO DAILY 07/31/20 [History] Fluticasone Nasal [place] [Flonase Nasal [place]] 2 spr EA NOSTRIL DAILY 07/31/20 [History] Glimepiride [Amaryl] 2 mg PO AC-BRKFST 07/31/20 [History] Hyoscyamine Sulfate [Levsin] 0.125 mg PO TID 07/31/20 [History] Medroxyprogesterone Acetate [Depo-Provera] 150 mg IM Q90D 07/31/20 [History] busPIRone HCl [Buspar] 5 mg PO DAILY 07/31/20 [History] oxyCODONE-APAP 7.5-325MG [Percocet 7.5-325 mg] 1 tab PO TID PRN 07/31/20 [History] traZODone HCL 50 mg PO HS 07/31/20 [History] Omeprazole [PriLOSEC] 40 mg PO DAILY #30 cap 08/05/20 [Rx] Follow up Appointment(s)/Referral(s): Connie Cristobal MD [STAFF PHYSICIAN] - 08/11/20 Patient Instructions/Handouts: Peptic Ulcer (ED), Diet for Stomach Ulcers and Gastritis (ED), Hemorrhoids (DC) Activity/Diet/Wound Care/Special Instructions: Repeat colonoscopy in 5 years, 2024 Discharge Disposition: HOME SELF-CARE
[2020-08-05 09:38] VITALS: BP 100/65; PULSE 62
== END 2020-08-05 10:18 | disposition home or self-care (01) ==
LOC: ORWHC2ENDO 07:45
PROVIDERS: ATTEND Surgery Plastic and Reconstructive Surgery
DX: K25.9 Gastric ulcer, unspecified as acute or chronic, without hemorrhage or perforation (principal); K21.9 Gastro-esophageal reflux disease without esophagitis; K64.3 Fourth degree hemorrhoids; E11.9 Type 2 diabetes mellitus without complications; E78.5 Hyperlipidemia, unspecified; I10 Essential (primary) hypertension; M19.90 Unspecified osteoarthritis, unspecified site; K58.9 Irritable bowel syndrome, unspecified; E28.2 Polycystic ovarian syndrome; G43.909 Migraine, unspecified, not intractable, without status migrainosus; Z90.49 Acquired absence of other specified parts of digestive tract; Z98.890 Other specified postprocedural states; F17.200 Nicotine dependence, unspecified, uncomplicated; Z83.3 Family history of diabetes mellitus; F32.9 Major depressive disorder, single episode, unspecified; Z97.2 Presence of dental prosthetic device (complete) (partial); Z79.1 Long term (current) use of non-steroidal anti-inflammatories (NSAID); Z79.899 Other long term (current) drug therapy; Z79.84 Long term (current) use of oral hypoglycemic drugs; Z79.3 Long term (current) use of hormonal contraceptives; Z88.8 Allergy status to other drugs, medicaments and biological substances; J30.1 Allergic rhinitis due to pollen
CPT/HCPCS: 81025; 88305; 45378; 43239; J2001; J2704

== ENCOUNTER 2022-10-05 18:18 | Observation (INO) | payer OTHER ==
[2022-10-05 18:53] LABS: Anisocytosis Slight; Basophils # (A) 0.1 k/uL (0-0.2); Basophils % (A) 1 %; Eosinophils # (A) 0.1 k/uL (0-0.7); Eosinophils % (A) 1 %; HCT 30.3 % (34.0-46.0); HGB 8.7 gm/dL (11.4-16.0); Hypochromasia Marked; Lymphocytes # (A) 1.7 k/uL (1.0-4.8); Lymphocytes % (A) 18 %; MCH 22.2 pg (25.0-35.0); MCHC 28.8 g/dL (31.0-37.0); MCV 77.1 fL (80.0-100.0); Mean Platelet Volume 7.6; Microcytosis Moderate; Monocytes # (A) 0.5 k/uL (0-1.0); Monocytes % (A) 5 %; Neutrophils # (A) 7.3 k/uL (1.3-7.7); Neutrophils % (A) 74 %; Platelet Count 405 k/uL (150-450); Poikilocytosis Slight; RBC 3.93 m/uL (3.80-5.40); RDW 19.5 % (11.5-15.5); WBC 9.8 k/uL (3.8-10.6)
[2022-10-05 19:09] LABS: ALT 18 U/L (4-34); AST 21 U/L (14-36); African American GFR (CKD) >90 (>60 ml/min/1.73 sqM); Albumin 3.8 g/dL (3.5-5.0); Alkaline Phosphatase 133 U/L (38-126); Anion Gap 8 mmol/L; Blood Urea Nitrogen 8 mg/dL (7-17); Carbon Dioxide 21 mmol/L (22-30); Chloride 112 mmol/L (98-107); Glucose 124 mg/dL (74-99); Non-African American GFR(CKD) >90 (>60 ml/min/1.73 sqM); Potassium 3.6 mmol/L (3.5-5.1); Sodium 141 mmol/L (137-145); Total Bilirubin 0.3 mg/dL (0.2-1.3); Total Protein 7.1 g/dL (6.3-8.2)
--- NOTE | 2022-10-05 19:53 | XR ---
EXAMINATION TYPE: XR KUB DATE OF EXAM: 10/05/2022 7:17 PM INDICATION: Patient age:Female; 47 years old; Reason for study: pain/sob; COMPARISON: 01/21/2016 TECHNIQUE: One radiographic view of the abdomen was obtained. FINDINGS: The bowel gas pattern is nonspecific without dilated loops of small or large bowel. There i s no evidence for organomegaly or pneumoperitoneum. The osseous structures are intact. No abnormal calcifications are present. Fecal material and gas are demonstrated throughout the colon and rectum. Scoliosis changes of the thoracolumbar spine Quadrant cholecystectomy clips. IMPRESSION: Nonspecific bowel gas pattern without radiographic evidence for acute process.
[2022-10-05] MEDS ORDERED: ONDANSETRON 4 MG/2 ML VIAL IVP STA (21:49)
[2022-10-05] MEDS ORDERED: SODIUM CHLORIDE 0.9% 1,000 ML IV ONE (21:49)
[2022-10-05] MEDS ORDERED: HYDROmorphone 1 MG/ML 1 ML SYRINGE IVP STA ×2 (21:49→22:39)
--- NOTE | 2022-10-05 21:57 | ED ---
Abdominal Pain HPI - General Chief Complaint: Abdominal Pain Stated Complaint: sob Time Seen by Provider: 10/05/22 21:20 Source: patient Mode of arrival: wheelchair - History of Present Illness Initial Comments: This patient is a 47-year-old woman who states she has history of irritable bowel syndrome, predominantly with diarrhea, who states she has had going on 3 days now of epigastric abdominal pain. She also started having associated nausea and then yesterday began having episodes of vomiting. She has not noted any hematemesis or coffee-ground emesis. The patient states the pain is aching, sometimes sharp. It seems to get better and worse. She has not noted definite provoking or relieving factors. No change in urination. She states that she has not really had much of a bowel movement since this began. Patient states that she takes Depo-Provera and does not usually have menstrual cycles. MD Complaint: abdominal pain Onset/Timin -: days(s) Location: epigastric Radiation: none Migration to: no migration Severity: moderate Quality: cramping, aching Consistency: constant Improves With: nothing Worsens With: nothing Associated Symptoms: nausea, vomiting - Related Data Home Medications Medication Instructions Recorded Confirmed hydroCHLOROthiazide [Hydrodiuril] 25 mg PO DAILY 12/27/17 10/06/22 Propranolol HCl [Inderal Xl] 80 mg PO DAILY 01/06/19 10/06/22 Sertraline [Zoloft] 150 mg PO DAILY 01/06/19 10/06/22 Ascorbic Acid [Vitamin C] 1,000 mg PO DAILY 07/31/20 10/06/22 Fluticasone Nasal [place] [Flonase 1 spr EA NOSTRIL BID 07/31/20 10/06/22 Nasal [place]] Medroxyprogesterone Acetate 150 mg IM Q90D 07/31/20 10/06/22 [Depo-Provera] oxyCODONE-APAP 7.5-325MG [Percocet 1 tab PO QID PRN 07/31/20 10/06/22 7.5-325 mg] Amitriptyline HCl [Elavil] 25 mg PO HS 10/06/22 10/06/22 Butalb/APAP/Caff 50-325-40Mg 1 tab PO DAILY PRN 10/06/22 10/06/22 [Fioricet 50-325-40] Gabapentin 300 mg PO BID 10/06/22 10/06/22 Lidocaine 5% Oint [Xylocaine 5% 1 applic TOPICAL BID PRN 10/06/22 10/06/22 Oint] Naloxone HCl [Narcan] 4 mg NASAL DIRECTED PRN 10/06/22 10/06/22 Ondansetron [Zofran] 4 mg PO Q8HR PRN 10/06/22 10/06/22 hydrOXYzine pamoate [hydrOXYzine 25 mg PO TID PRN 10/06/22 10/06/22 PAMOATE] Previous Rx's Medication Instructions Recorded Metoclopramide HCl [Reglan] 10 mg PO TID PRN #15 tablet 10/05/22 Atorvastatin [Lipitor] 20 mg PO HS #30 tab 10/08/22 Dicyclomine [Bentyl] 10 mg PO TID PRN #21 cap 10/08/22 Pantoprazole Sodium [Protonix] 40 mg PO AC-BRKFST #30 tab 10/08/22 Allergies Allergy/AdvReac Type Severity Reaction Status Date / Time citalopram hydrobromide AdvReac Severe Migraine Verified 10/06/22 07:26 [From Celexa] lactose AdvReac Unknown Verified 10/06/22 07:26 Review of Systems ROS Statement: Those systems with pertinent positive or pertinent negative responses have been documented in the HPI. ROS Other: All systems not noted in ROS Statement are negative. Constitutional: Denies: fever, chills Respiratory: Denies: cough, dyspnea Cardiovascular: Denies: chest pain, palpitations, edema, syncope Gastrointestinal: Reports: abdominal pain, nausea, vomiting. Denies: diarrhea, constipation, hematemesis, melena, hematochezia Genitourinary: Denies: dysuria, hematuria, discharge, abnormal menses Musculoskeletal: Denies: back pain Skin: Denies: rash Neurological: Denies: headache, weakness, numbness Past Medical History Past Medical History: Diabetes Mellitus, Hyperlipidemia, Hypertension, Osteoarthritis (OA) Additional Past Medical History / Comment(s): ibs , seasonal allergies, PCOS, MIGRAINES History of Any Multi-Drug Resistant Organisms: None Reported Past Surgical History: Cholecystectomy, Orthopedic Surgery Additional Past Surgical History / Comment(s): colonoscopy, d & c. LT KNEE SX X 4. HEMORRHOID BANDING Past Anesthesia/Blood Transfusion Reactions: No Reported Reaction Past Psychological History: Anxiety, Depression Smoking Status: Current every day smoker - Past Family History Father Family Medical History: Diabetes Mellitus Mother Family Medical History: No Reported History General Exam General appearance: alert, in no apparent distress Head exam: Present: atraumatic, normocephalic Eye exam: Present: normal appearance. Absent: scleral icterus, conjunctival injection ENT exam: Present: normal oropharynx Neck exam: Present: normal inspection Respiratory exam: Present: normal lung sounds bilaterally. Absent: respiratory distress, wheezes, rales, rhonchi, stridor Cardiovascular Exam: Present: regular rate, normal rhythm, normal heart sounds. Absent: systolic murmur, diastolic murmur, rubs, gallop GI/Abdominal exam: Present: soft, tenderness. Absent: distended, guarding, rebound, rigid, mass, pulsatile mass, hernia Extremities exam: Present: normal inspection, normal capillary refill. Absent: pedal edema, calf tenderness Back exam: Present: normal inspection. Absent: CVA tenderness (R), CVA tenderness (L) Neurological exam: Present: alert Skin exam: Present: warm, dry, intact, normal color. Absent: rash Course Vital Signs 10/05/22 10/05/22 10/05/22 18:19 21:29 22:54 Temperature 98.4 F Pulse Rate 67 72 79 Respiratory 20 18 18 Rate Blood Pressure 145/76 131/59 148/68 O2 Sat by Pulse 100 99 99 Oximetry 10/06/22 01:00 Temperature 98.6 F Pulse Rate 78 Respiratory 16 Rate Blood Pressure 113/49 O2 Sat by Pulse 98 Oximetry Medical Decision Making - Medical Decision Making This patient is a 47-year-old woman presenting with complaint of abdominal pain who was found to have anemia and heme positive stools. She is sent for KUB film interpreted by myself is not showing free air or o bstruction area She had computed tomography scan of the abdomen which was interpreted by myself is not showing an obstruction, no free air. There are small bilateral effusions. Given that the patient is more anemic than previously had been, she'll be admitted to have surgical consultation and possibly a colonoscopy. Case discussed with admitting physician and with surgeon on-call. Was pt. sent in by a medical professional or institution? @ -[no Did you speak to anyone other than the patient for history? @ -[no Did you review nursing and triage notes? @ -[agree Were old charts reviewed? @ -[Previous records Differential Diagnosis? @ -[Differential Abdominal Pain Women: Appendicitis, Cholecystitis, diverticulosis, ischemic bowel, pancreatitis, hepatitis, UTI, gastroenteritis, AAA, incarcerated hernia, bowel obstruction, constipation, inflammatory bowel, hepatitis, peptic ulcer disease, splenic infarction, perforated viscus, vulvitis, ovarian torsion, PID, kidney stone, placenta abruption, this is not meant to be an all-inclusive list EKG interpreted by me (3pts min.)? @ -[none] X-rays interpreted by me (1pt min.)? @ -[See chart CT interpreted by me (1pt min.)? @ -[See chart U/S interpreted by me (1pt. min.)? @ -[none] What testing was considered but not performed? (CT, X-rays, U/S, labs)? Why? @ [No What meds were considered but not given? Why? @ -[none] Did you discuss the management of the patient with other professionals? @ -[Admitting physician and consulting surgeon Did you reconcile home meds? @ -[none] Was smoking cessation discussed for >3mins.? @ -[none] Was critical care preformed (if so, how long)? @ -[none] Were there social determinants of health that impacted care today? How? (Homelessness, low income, unemployed, alcoholism, drug addiction, transportation, low edu. Level, literacy, decrease access to med. care, fpc, rehab)? @ -[No Was there de-escalation of care discussed even if they declined? (Discuss DNR or withdrawal of care, Hospice)? @ -[No What co-morbidities impacted this encounter? (DM, HTN, Smoking, COPD, CAD, Cancer, CVA, Hep., AIDS, mental health diagnosis, sleep apnea, morbid obesity)? @ -[ Was patient admitted / discharged? @ -[Admitted Undiagnosed new problem with uncertain prognosis? @ -[none] Drug Therapy requiring intensive monitoring for toxicity (Heparin, Nitro, Insulin, Cardizem)? @ -[none] Were any procedures done? @ -[none] Diagnosis/symptom? @ -[1. Abdominal pain, acute, uncomplicated 2. Anemia, acute uncomplicated, 3. Pleural effusions, acute , uncomplicated Acute, or Chronic, or Acute on Chronic? @ -[default] Uncomplicated (without systemic symptoms) or Complicated (systemic symptoms)? @ -[default] Side effects of treatment? @ -[none] Exacerbation, Progression, or Severe Exacerbation] @ -[no] Poses a threat to life or bodily function? @ -[no] - Lab Data Result diagrams: 10/08/22 07:05 10/07/22 04:37 Lab Results 10/05/22 10/05/22 10/05/22 Range/Units 18:26 18:35 18:35 WBC 9.8 (3.8-10.6) k/uL RBC 3.93 (3.80-5.40) m/uL Hgb 8.7 L (11.4-16.0) gm/dL Hct 30.3 L (34.0-46.0) % MCV 77.1 L (80.0-100.0) fL MCH 22.2 L (25.0-35.0) pg MCHC 28.8 L (31.0-37.0) g/dL RDW 19.5 H (11.5-15.5) % Plt Count 405 (150-450) k/uL MPV 7.6 Neutrophils % 74 % Lymphocytes % 18 % Monocytes % 5 % Eosinophils % 1 % Basophils % 1 % Neutrophils # 7.3 (1.3-7.7) k/uL Lymphocytes # 1.7 (1.0-4.8) k/uL Monocytes # 0.5 (0-1.0) k/uL Eosinophils # 0.1 (0-0.7) k/uL Basophils # 0.1 (0-0.2) k/uL Hypochromasia Marked Poikilocytosis Slight Anisocytosis Slight Microcytosis Moderate Sodium 141 (137-145) mmol/L Potassium 3.6 (3.5-5.1) mmol/L Chloride 112 H (98-107) mmol/L Carbon Dioxide 21 L (22-30) mmol/L Anion Gap 8 mmol/L BUN 8 (7-17) mg/dL Creatinine 0.61 (0.52-1.04) mg/dL Est GFR (CKD-EPI)AfAm >90 (>60 ml/min/1.73 sqM) Est GFR (CKD-EPI)NonAf >90 (>60 ml/min/1.73 sqM) Glucose 124 H (74-99) mg/dL Calcium 9.0 (8.4-10.2) mg/dL Total Bilirubin 0.3 (0.2-1.3) mg/dL AST 21 (14-36) U/L ALT 18 (4-34) U/L Alkaline Phosphatase 133 H (38-126) U/L NT-Pro-B Natriuret Pep pg/mL Total Protein 7.1 (6.3-8.2) g/dL Albumin 3.8 (3.5-5.0) g/dL Influenza Type A (PCR) Not Detected (Not Detectd) Influenza Type B (PCR) Not Detected (Not Detectd) RSV (PCR) Not Detected (Not Detectd) SARS-CoV-2 (PCR) Not Detected (Not Detectd) 10/05/22 Range/Units 18:35 WBC (3.8-10.6) k/uL RBC (3.80-5.40) m/uL Hgb (11.4-16.0) gm/dL Hct (34.0-46.0) % MCV (80.0-100.0) fL MCH (25.0-35.0) pg MCHC (31.0-37.0) g/dL RDW (11.5-15.5) % Plt Count (150-450) k/uL MPV Neutrophils % % Lymphocytes % % Monocytes % % Eosinophils % % Basophils % % Neutrophils # (1.3-7.7) k/uL Lymphocytes # (1.0-4.8) k/uL Monocytes # (0-1.0) k/uL Eosinophils # (0-0.7) k/uL Basophils # (0-0.2) k/uL Hypochromasia Poikilocytosis Anisocytosis Microcytosis Sodium (137-145) mmol/L Potassium (3.5-5.1) mmol/L Chloride (98-107) mmol/L Carbon Dioxide (22-30) mmol/L Anion Gap mmol/L BUN (7-17) mg/dL Creatinine (0.52-1.04) mg/dL Est GFR (CKD-EPI)AfAm (>60 ml/min/1.73 sqM) Est GFR (CKD-EPI)NonAf (>60 ml/min/1.73 sqM) Glucose (74-99) mg/dL Calcium (8.4-10.2) mg/dL Total Bilirubin (0.2-1.3) mg/dL AST (14-36) U/L ALT (4-34) U/L Alkaline Phosphatase (38-126) U/L NT-Pro-B Natriuret Pep 624 pg/mL Total Protein (6.3-8.2) g/dL Albumin (3.5-5.0) g/dL Influenza Type A (PCR) (Not Detectd) Influenza Type B (PCR) (Not Detectd) RSV (PCR) (Not Detectd) SARS-CoV-2 (PCR) (Not Detectd) - EKG Data -: EKG Interpreted by Me EKG shows normal: sinus rhythm, axis (Normal), intervals (Normal), QRS complexes (Normal), ST-T waves (Normal) Rate: normal (Rate 62 bpm) Interpretation: normal EKG Disposition Clinical Impression: Abdominal pain, Pleural effusion Disposition: ADMITTED IP TO THIS HOSP Condition: Good Is patient prescribed a controlled substance at d/c from ED?: No
[2022-10-05] MEDS ORDERED: METOCLOPRAMIDE 5 MG/ML 2 ML VIAL IVP STA (22:39)
--- NOTE | 2022-10-05 23:30 | CT ---
EXAMINATION TYPE: CT abdomen pelvis wo con DATE OF EXAM: 10/05/2022 COMPARISON: 01/06/2019 HISTORY: Nausea, vomitting, and SOB CT DLP: 952.8 mGycm Automated exposure control for dose reduction was used. Images obtained from the diaphragm to the floor of the pelvis with no contrast. There is interstitial edema at the lung bases. There is bilateral pleural effusions. Heart is borderl ine enlarged. No pericardial effusion. There are clips from cholecystectomy. Liver spleen stomach pancreas appear intact. The bile ducts are not dilated. There is no adrenal mass. Kidneys of normal size. No hydronephrosis. Ureters are not dilated. No retr operitoneal adenopathy. Bladder distends smoothly. No inguinal hernia. There is cystic fluid collecti ons in the pelvis that measure up to 6 cm in diameter. The uterus is anteverted. The appendix is post erior and lateral and appears normal. No inguinal hernia. No free fluid in the pelvis. There is no mesenteric edema. No ascites or free air. No sign of a bowel obstruction. The lumbar vertebra have normal alignment. No compression fracture. Posterior elements are intact. Fa cet joints are intact. The bony pelvis is intact. IMPRESSION: Bilateral pleural effusions and interstitial pulmonary edema are new compared to the old exam. This c ould be congestive heart failure. There is cystic masses in the pelvis consistent with ovarian cysts and are increased in size compared to the old exam. Previous exam shows a single cyst that measures 4.5 cm and now there are 2 cysts.
[2022-10-06] MEDS ORDERED: ACETAMINOPHEN TAB 325 MG TAB PO PRN (00:46)
[2022-10-06] MEDS ORDERED: NALOXONE 0.4 MG/ML 1 ML VIAL IV PRN (00:46)
[2022-10-06] MEDS ORDERED: ONDANSETRON 4 MG/2 ML VIAL IVP PRN (00:46)
[2022-10-06] MEDS: SODIUM CHLORIDE 0.9% 1,000 ML IV SCH (01:01)
[2022-10-06] MEDS: oxyCODONE-APAP 7.5-325MG 1 EACH TAB PO PRN ×4 (02:34→20:20)
[2022-10-06] MEDS: traZODone HCL 50 MG TAB PO SCH ×2 (03:23→20:20)
[2022-10-06] MEDS ORDERED: PANTOPRAZOLE 40 MG TABLET PO SCH (07:30)
[2022-10-06] MEDS ORDERED: hydroCHLOROthiazide 25 MG TAB PO SCH (09:00)
[2022-10-06] MEDS ORDERED: FAMOTIDINE 20 MG TAB PO SCH (09:00)
[2022-10-06] MEDS: ASPIRIN 81 MG PO SCH (09:13)
[2022-10-06] MEDS: SERTRALINE 100 MG TAB PO SCH (09:13)
[2022-10-06] MEDS: PROPRANOLOL LA 80 MG CAP.SA.24H PO SCH (09:14)
[2022-10-06] MEDS: NICOTINE 21MG/24HR PATCH TRANSDERM SCH (11:28)
[2022-10-06] MEDS ORDERED: NICOTINE 21MG/24HR PATCH TRANSDERM SCH (11:45)
[2022-10-06 12:55] LABS: Anisocytosis Slight; HCT 28.6 % (34.0-46.0); HGB 8.3 gm/dL (11.4-16.0); Hypochromasia Marked; MCH 22.6 pg (25.0-35.0); MCV 78.1 fL (80.0-100.0); Mean Platelet Volume 8.4; Microcytosis Slight; Platelet Count 402 k/uL (150-450); Poikilocytosis Slight; RBC 3.66 m/uL (3.80-5.40); RDW 19.3 % (11.5-15.5); WBC 12.8 k/uL (3.8-10.6)
[2022-10-06] MEDS ORDERED: DICYCLOMINE 10 MG CAP PO PRN (14:02)
[2022-10-06] MEDS ORDERED: oxyCODONE-APAP 7.5-325MG 1 EACH TAB PO SCH (14:15)
[2022-10-06] MEDS ORDERED: HYDROmorphone 0.5 MG/0.5 ML SYRINGE IVP STA (15:24)
[2022-10-06] MEDS ORDERED: DEXTROSE 50% SYRINGE 50 ML IVP PRN ×2 (18:30)
--- NOTE | 2022-10-06 18:39 | P.HPIM ---
History of Present Illness H&P Date: 10/06/22 Chief Complaint: Abdominal pain, blood in stools This a 47-year-old female with past medical history of irritable bowel syndrome, gastric ulcers, nicotine dependence, diabetes mellitus, hypertension, hyperlipidemia, osteoarthritis and multiple other medical issues ,reporting midepigastric abdominal pain accompanied by nausea, vomiting, blood in stools 3 days. Denies hematemesis or coffee-ground emesis. Reports abdominal pain waxes and wanes, sometimes sharp sometimes dull and achy. Reports since the onset of her symptoms, bowel movements have decreased. Patient reports tiny soft bowel movement this morning. Denies being around anyone ill. Denies fever or chills, cough, congestion, shortness of breath. Denies dysuria, hematuria, menses at this time, denies chest pain, palpitations, lightheadedness, dizziness or focal deficits. Reports she has been compliant with her home medications, including her PPI- Protonix that she takes daily but has been experiencing heartburn and states "it's not working". Radiology studies of abdomen and pelvis reported fecal material and gas throughout the colon and rectum, bilateral pleural effusions, ovarian cyst increased in size. Afebrile, T-max 99.9, normal WBC on admission, currently increased to 12.8, hemoglobin 8.3, platelets 402, electrolytes within normal limits, chloride 112, renal function stable troponin negative, glucose 124, alk phos 133, BNP 624. Influenza type A & B, RSV and coronavirus not detected. Patient has previously followed with Dr. Connie Cristobal, including EGD in 2019, reporting heel grade to lower esophageal valve, erosive esophagitis LA grade B, gastritis, superficial gastric ulcer. Patient also reports a normal colonoscopy last year. Maintained on gentle IV fluid hydration, PPI. Review of Systems ROS Statement: Those systems with pertinent positive or pertinent negative responses have been documented in the HPI. ROS Other: All systems not noted in ROS Statement are negative. Past Medical History Past Medical History: Diabetes Mellitus, Hyperlipidemia, Hypertension, Osteoarthritis (OA) Additional Past Medical History / Comment(s): ibs , seasonal allergies, PCOS, MIGRAINES History of Any Multi-Drug Resistant Organisms: None Reported Past Surgical History: Cholecystectomy, Orthopedic Surgery Additional Past Surgical History / Comment(s): colonoscopy, d & c. LT KNEE SX X 4. HEMORRHOID BANDING Past Anesthesia/Blood Transfusion Reactions: No Reported Reaction Past Psychological History: Anxiety, Depression Additional Psychological History / Comment(s): seeking counseling Smoking Status: Current every day smoker Past Alcohol Use History: None Reported Additional Past Alcohol Use History / Comment(s): SMOKES < 1 PPD SINCE AGE 19 Past Drug Use History: None Reported - Past Family History Father Family Medical History: Diabetes Mellitus Mother Family Medical History: No Reported History Medications and Allergies Home Medications Medication Instructions Recorded Confirmed Type hydroCHLOROthiazide [Hydrodiuril] 25 mg PO DAILY 12/27/17 10/06/22 History Propranolol HCl [Inderal Xl] 80 mg PO DAILY 01/06/19 10/06/22 History Sertraline [Zoloft] 150 mg PO DAILY 01/06/19 10/06/22 History Ascorbic Acid [Vitamin C] 1,000 mg PO DAILY 07/31/20 10/06/22 History Fluticasone Nasal [place] [Flonase 1 spr EA NOSTRIL BID 07/31/20 10/06/22 History Nasal [place]] Medroxyprogesterone Acetate 150 mg IM Q90D 07/31/20 10/06/22 History [Depo-Provera] oxyCODONE-APAP 7.5-325MG [Percocet 1 tab PO QID PRN 07/31/20 10/06/22 History 7.5-325 mg] traZODone HCL 50 mg PO HS 07/31/20 10/06/22 History Metoclopramide HCl [Reglan] 10 mg PO TID PRN #15 tablet 10/05/22 Rx Amitriptyline HCl [Elavil] 25 mg PO HS 10/06/22 10/06/22 History Butalb/APAP/Caff 50-325-40Mg 1 tab PO DAILY PRN 10/06/22 10/06/22 History [Fioricet 50-325-40] Gabapentin 300 mg PO BID 10/06/22 10/06/22 History Lidocaine 5% Oint [Xylocaine 5% 1 applic TOPICAL BID PRN 10/06/22 10/06/22 History Oint] Naloxone HCl [Narcan] 4 mg NASAL DIRECTED PRN 10/06/22 10/06/22 History Ondansetron [Zofran] 4 mg PO Q8HR PRN 10/06/22 10/06/22 History hydrOXYzine pamoate [hydrOXYzine 25 mg PO TID PRN 10/06/22 10/06/22 History PAMOATE] Allergies Allergy/AdvReac Type Severity Reaction Status Date / Time citalopram hydrobromide AdvReac Severe Migraine Verified 10/06/22 07:26 [From Celexa] lactose AdvReac Unknown Verified 10/06/22 07:26 Physical Exam Vitals: Vital Signs Temp Pulse Pulse Resp BP BP Pulse Ox 10/06/22 13:47 98 F 64 20 127/78 100 10/06/22 07:00 98.9 F 87 18 119/69 96 10/06/22 03:09 79 10/06/22 02:29 99.9 F H 67 19 127/81 100 10/06/22 01:00 98.6 F 78 16 113/49 98 10/05/22 22:54 79 18 148/68 99 10/05/22 21:29 72 18 131/59 99 10/05/22 18:19 98.4 F 67 20 145/76 100 Intake and Output 10/05/22 10/06/22 10/06/22 22:59 06:59 14:59 Intake Total 240 360 Balance 240 360 Intake: Oral 240 360 Other: Voiding Method Toilet Weight 104.326 kg 104.326 kg PHYSICAL EXAM: VITAL SIGNS: [As above] GENERAL: Alert and oriented 3, Standing up, showering, no acute distress, conversing fluently with no shortness of breath HEENT: Conjunctivae normal. eyes normal. NECK: Supple, no JVD CARDIOVASCULAR: S1, S2 regular. No murmur RESPIRATION: Nonlabored, Breath sounds diminished in the bases. No rhonchi or crackles. No bronchial breathing. ABDOMEN: Soft, nondistended, diffuse tenderness greatest on the right quadrants ,No guarding. no masses palpable. Bowel sounds heard. LEGS: No edema. no swelling NERVOUS SYSTEM: Cranial N 2-12 grossly normal.No focal deficits. Skin: Warm and dry, no rash Results CBC & Chem 7: 10/06/22 11:51 10/05/22 18:35 Labs: Abnormal Lab Results - Last 24 Hours (Table) 10/05/22 10/05/22 10/06/22 Range/Units 18:35 18:35 11:51 WBC 12.8 H (3.8-10.6) k/uL RBC 3.66 L (3.80-5.40) m/uL Hgb 8.7 L 8.3 L (11.4-16.0) gm/dL Hct 30.3 L 28.6 L (34.0-46.0) % MCV 77.1 L 78.1 L (80.0-100.0) fL MCH 22.2 L 22.6 L (25.0-35.0) pg MCHC 28.8 L 29.0 L (31.0-37.0) g/dL RDW 19.5 H 19.3 H (11.5-15.5) % Chloride 112 H (98-107) mmol/L Carbon Dioxide 21 L (22-30) mmol/L Glucose 124 H (74-99) mg/dL Alkaline Phosphatase 133 H (38-126) U/L Assessment and Plan Assessment: Mid epigastric Abdominal pain accompanied by nausea vomiting 3 days with reported bloody stools in a patient with history of IBS, gastric ulcers, possible ileus, possible partial small bowel obstruction, possible GI bleed. Incidental finding of increasing size of ovarian cyst, further follow-up outpatient with FIELD PLACEMENT DIRECTOR Bilateral pleural effusions reported per CT Morbid obesity, BMI 39.5 Diabetes mellitus Hypertension Hyperlipidemia OA Anxiety Depression Ongoing nicotine dependence Plan: Continue on current medication regime ,monitoring and symptomatic treatment. Gentle IV fluid hydration. PPI IV push for GI prophylaxis .Clear liquid/consistent carb with sliding scale. Pain management, antiemetics.Bentyl added to regimine. Smoking cessation reinforced, nicotine patch ordered. Increase ambulation as tolerated. General surgery consult with Dr. Cristobal who patient is already established with, initiated. Close monitoring of hemoglobin with repeat level ordered this afternoon. The impression and plan of care has been dictated as directed. : I performed a history and examination of this patient, discussed the same with the dictator. I agree with the dictator's note ,documented as a scribe. Any additional findings or plans will be noted.
[2022-10-06] MEDS: PANTOPRAZOLE 40 MG/10 ML VIAL IVP SCH (18:40)
--- NOTE | 2022-10-06 19:17 | P.GSCN ---
History of Present Illness Consult date: 10/06/22 Reason for Consult: Abdominal pain History of present illness: 47 row female known to Dr. Polanco. She states she has a history of previous peptic ulcer. She was admitted to the hospital complaining of shortness of breath, abdominal pain, blood in stools. Patient says she has chronic abdominal discomforts. She says she has significant hemorrhoid disease that bleeds heavily. Her last EGD was in 2019 that showed a superficial gastric ulcer. She also had a colonoscopy last year. She says she has had hemorrhoidal banding in the past. Patient's white blood cell count is slightly elevated. States that she was having trouble breathing and could hear rattling in her chest when she was breathing. Review of Systems The patient denies any acute changes in vision or hearing, no dysphagia or odynophagia, no dysuria or hematuria, no headache, no runny nose, no melena, no unexplained weight loss Past Medical History Past Medical History: Diabetes Mellitus, Hyperlipidemia, Hypertension, Osteoarthritis (OA) Additional Past Medical History / Comment(s): ibs , seasonal allergies, PCOS, MIGRAINES History of Any Multi-Drug Resistant Organisms: None Reported Past Surgical History: Cholecystectomy, Orthopedic Surgery Additional Past Surgical History / Comment(s): colonoscopy, d & c. LT KNEE SX X 4. HEMORRHOID BANDING Past Anesthesia/Blood Transfusion Reactions: No Reported Reaction Past Psychological History: Anxiety, Depression Additional Psychological History / Comment(s): seeking counseling Smoking Status: Current every day smoker Past Alcohol Use History: None Reported Additional Past Alcohol Use History / Comment(s): SMOKES < 1 PPD SINCE AGE 19 Past Drug Use History: None Reported - Past Family History Father Family Medical History: Diabetes Mellitus Mother Family Medical History: No Reported History Medications and Allergies Home Medications Medication Instructions Recorded Confirmed Type hydroCHLOROthiazide [Hydrodiuril] 25 mg PO DAILY 12/27/17 10/06/22 History Propranolol HCl [Inderal Xl] 80 mg PO DAILY 01/06/19 10/06/22 History Sertraline [Zoloft] 150 mg PO DAILY 01/06/19 10/06/22 History Ascorbic Acid [Vitamin C] 1,000 mg PO DAILY 07/31/20 10/06/22 History Fluticasone Nasal [place] [Flonase 1 spr EA NOSTRIL BID 07/31/20 10/06/22 History Nasal [place]] Medroxyprogesterone Acetate 150 mg IM Q90D 07/31/20 10/06/22 History [Depo-Provera] oxyCODONE-APAP 7.5-325MG [Percocet 1 tab PO QID PRN 07/31/20 10/06/22 History 7.5-325 mg] traZODone HCL 50 mg PO HS 07/31/20 10/06/22 History Metoclopramide HCl [Reglan] 10 mg PO TID PRN #15 tablet 10/05/22 Rx Amitriptyline HCl [Elavil] 25 mg PO HS 10/06/22 10/06/22 History Butalb/APAP/Caff 50-325-40Mg 1 tab PO DAILY PRN 10/06/22 10/06/22 History [Fioricet 50-325-40] Gabapentin 300 mg PO BID 10/06/22 10/06/22 History Lidocaine 5% Oint [Xylocaine 5% 1 applic TOPICAL BID PRN 10/06/22 10/06/22 History Oint] Naloxone HCl [Narcan] 4 mg NASAL DIRECTED PRN 10/06/22 10/06/22 History Ondansetron [Zofran] 4 mg PO Q8HR PRN 10/06/22 10/06/22 History hydrOXYzine pamoate [hydrOXYzine 25 mg PO TID PRN 10/06/22 10/06/22 History PAMOATE] Allergies Allergy/AdvReac Type Severity Reaction Status Date / Time citalopram hydrobromide AdvReac Severe Migraine Verified 10/06/22 07:26 [From Celexa] lactose AdvReac Unknown Verified 10/06/22 07:26 Surgical - Exam Vital Signs Temp Pulse Resp BP Pulse Ox 98.4 F 67 20 145/76 100 10/05/22 18:19 10/05/22 18:19 10/05/22 18:19 10/05/22 18:19 10/05/22 18:19 Physical exam: General: Well-developed, well-nourished HEENT: Normocephalic, sclerae nonicteric Abdomen: Nontender, nondistended Extremities: No edema Neuro: Alert and oriented Results - Labs 10/06/22 11:51 10/05/22 18:35 Abnormal Lab Results - Last 24 Hours (Table) 10/06/22 Range/Units 11:51 WBC 12.8 H (3.8-10.6) k/uL RBC 3.66 L (3.80-5.40) m/uL Hgb 8.3 L (11.4-16.0) gm/dL Hct 28.6 L (34.0-46.0) % MCV 78.1 L (80.0-100.0) fL MCH 22.6 L (25.0-35.0) pg MCHC 29.0 L (31.0-37.0) g/dL RDW 19.3 H (11.5-15.5) % Assessment and Plan (1) Abdominal pain Narrative/Plan: 47yo female with abdominal pain and rectal bleeding. Patient has had previous endoscopies however of bleeding persists may require repeat EGD and colonoscopy. Continue antiacids. Continue clear liquids. Will follow with you. Current Visit: Yes Status: Acute Code(s): R10.9 - UNSPECIFIED ABDOMINAL PAIN SNOMED Code(s): 42397429
[2022-10-06 19:56] LABS: Anisocytosis Slight; HCT 28.3 % (34.0-46.0); HGB 8.2 gm/dL (11.4-16.0); Hypochromasia Marked; MCH 22.1 pg (25.0-35.0); MCHC 28.8 g/dL (31.0-37.0); MCV 76.8 fL (80.0-100.0); Mean Platelet Volume 8.2; Microcytosis Moderate; Platelet Count 384 k/uL (150-450); Poikilocytosis Slight; RBC 3.68 m/uL (3.80-5.40); RDW 19.5 % (11.5-15.5); WBC 11.1 k/uL (3.8-10.6)
[2022-10-06] MEDS: ATORVASTATIN 20 MG TAB PO SCH (20:20)
[2022-10-06 20:47] LABS: Glucose,Whole Blood 108 mg/dL (70-110)
[2022-10-06] MEDS: INSULIN ASPART (NovoLOG) 100 UNIT/ML VIAL SQ SCH (21:04)
[2022-10-06] MEDS: BUTALB/APAP/CAFF 50-325-40MG TAB PO PRN (21:09)
[2022-10-06] MEDS: HYDROmorphone 0.5 MG/0.5 ML SYRINGE IVP PRN (21:48)
[2022-10-07] MEDS: SODIUM CHLORIDE 0.9% 1,000 ML IV SCH ×2 (00:02→20:58)
[2022-10-07] MEDS: HYDROmorphone 0.5 MG/0.5 ML SYRINGE IVP PRN ×2 (01:51→05:51)
[2022-10-07 05:45] LABS: Glucose,Whole Blood 106 mg/dL (70-110)
[2022-10-07] MEDS: INSULIN ASPART (NovoLOG) 100 UNIT/ML VIAL SQ SCH ×4 (05:48→20:57)
[2022-10-07] MEDS: ASPIRIN 81 MG PO SCH (08:32)
[2022-10-07] MEDS: NICOTINE 21MG/24HR PATCH TRANSDERM SCH (08:32)
[2022-10-07] MEDS: PANTOPRAZOLE 40 MG/10 ML VIAL IVP SCH (08:32)
[2022-10-07] MEDS: PROPRANOLOL LA 80 MG CAP.SA.24H PO SCH (08:32)
[2022-10-07] MEDS: SERTRALINE 100 MG TAB PO SCH (08:32)
[2022-10-07] MEDS: oxyCODONE-APAP 7.5-325MG 1 EACH TAB PO PRN ×2 (08:33→14:43)
--- NOTE | 2022-10-07 09:32 | P.PN ---
Subjective Progress Note Date: 10/07/22 H&P Date: 10/06/22 Chief Complaint: Abdominal pain, blood in stools This a 47-year-old female with past medical history of irritable bowel syndrome, gastric ulcers, nicotine dependence, diabetes mellitus, hypertension, hyperlipidemia, osteoarthritis and multiple other medical issues ,reporting midepigastric abdominal pain accompanied by nausea, vomiting, blood in stools 3 days. Denies hematemesis or coffee-ground emesis. Reports abdominal pain waxes and wanes, sometimes sharp sometimes dull and achy. Reports since the onset of her symptoms, bowel movements have decreased. Patient reports tiny soft bowel movement this morning,nonbloody. Denies being around anyone ill. Denies fever or chills, cough, congestion, shortness of breath. Denies dysuria, hematuria, menses at this time, denies chest pain, palpitations, lightheadedness, dizziness or focal deficits. Reports she has been compliant with her home medications, including her PPI- Protonix that she takes daily but has been experiencing heartburn and states "it's not working". Radiology studies of abdomen and pelvis reported fecal material and gas throughout the colon and rectum, bilateral pleural effusions, ovarian cyst increased in size. Afebrile, T-max 99.9, normal WBC on admission, currently increased to 12.8, hemoglobin 8.3, platelets 402, electrolytes within normal limits, chloride 112, renal function stable troponin negative, glucose 124, alk phos 133, BNP 624. Influenza type A & B, RSV and coronavirus not detected. Patient has previously followed with Dr. Connie Cristobal, including EGD in 2019, reporting heel grade to lower esophageal valve, erosive esophagitis LA grade B, gastritis, superficial gastric ulcer. Patient also reports a normal colonoscopy last year. Maintained on gentle IV fluid hydration, PPI. 10/07/2022 maintained on Bentyl and IV push Protonix with significant improvement. Nausea improved. Passing flatus, with no further bowel movements since yesterday morning. Increased her intake at dinner last night of clear liquids with worsened abdominal pain reported 2 hours afterwards. No emesis. Positive abdominal pain, now more localized left lower quadrant. Last night repeated hemoglobin 8.2, platelets mildly decreased ,384; repeat labs this morning pending. Blood sugars controlled, A1c 5.9. Evaluated by general surgery with recommendations noted and appreciated. Objective - Vital Signs Vital signs: Vital Signs Temp 98.6 F 10/07/22 07:00 Pulse 51 L 10/07/22 07:00 Resp 16 10/07/22 07:00 BP 117/62 10/07/22 07:00 Pulse Ox 100 10/07/22 07:00 FiO2 Intake & Output 10/06/22 10/07/22 10/07/22 18:59 06:59 18:59 Intake Total 480 Balance 480 Intake: Oral 480 Other: Voiding Method Toilet # Voids 1 # Bowel Movements 0 - Exam PHYSICAL EXAM: VITAL SIGNS: [As above] GENERAL: Alert and oriented 3, sitting up in bed,NAD HEENT: Conjunctivae normal. eyes normal. Oral mucosa moist. NECK: Supple, no JVD CARDIOVASCULAR: S1, S2 regular. No murmur RESPIRATION: Nonlabored, Breath sounds CTA,diminished bases. ABDOMEN: Soft, nondistended, diffuse tenderness-more localized in the hypogastric and left lower quadrant,No guarding. Hypoactive bowel sounds. LEGS: No edema. no swelling NERVOUS SYSTEM: Cranial N 2-12 grossly normal.No focal deficits. Skin: Warm and dry, no rash noted. - Labs CBC & Chem 7: 10/06/22 19:20 10/05/22 18:35 Labs: Abnormal Lab Results - Last 24 Hours (Table) 10/06/22 10/06/22 Range/Units 11:51 19:20 WBC 12.8 H 11.1 H (3.8-10.6) k/uL RBC 3.66 L 3.68 L (3.80-5.40) m/uL Hgb 8.3 L 8.2 L (11.4-16.0) gm/dL Hct 28.6 L 28.3 L (34.0-46.0) % MCV 78.1 L 76.8 L (80.0-100.0) fL MCH 22.6 L 22.1 L (25.0-35.0) pg MCHC 29.0 L 28.8 L (31.0-37.0) g/dL RDW 19.3 H 19.5 H (11.5-15.5) % Assessment and Plan Assessment: Mid epigastric Abdominal pain accompanied by nausea vomiting 3 days with reported bloody stools in a patient with history of IBS, gastric ulcers, possible ileus, possible partial small bowel obstruction, possible GI bleed. Incidental finding of increasing size of ovarian cyst, further follow-up outpatient with FACILITIES MAINTENANCE MANAGER Bilateral pleural effusions reported per CT Morbid obesity, BMI 39.5 Diabetes mellitus Hypertension Hyperlipidemia OA Anxiety Depression Ongoing nicotine dependence Plan: Continue on current medication regime ,monitoring and symptomatic treatment. Labs pending .Maintain Bentyl and IV push Protonix .pain management .Continue on Clear liquid/consistent carb with sliding scale. Increase ambulation as tolerated. Follow closely with general surgery, potential endoscopy workup/ The impression and plan of care has been dictated as directed. : I performed a history and examination of this patient, discussed the same with the dictator. I agree with the dictator's note ,documented as a scribe. Any additional findings or plans will be noted.
[2022-10-07] MEDS: FLUTICASONE 50MCG/SPRAY NASAL 16GM EA NOSTRIL SCH ×2 (10:07→20:57)
[2022-10-07 10:09] LABS: Basophils # (A) 0.07 X 10*3/uL (0.00-0.10); Basophils % (A) 0.7 %; Eosinophils # (A) 0.09 X 10*3/uL (0.04-0.35); Eosinophils % (A) 0.9 %; HCT 27.5 % (37.2-46.3); HGB 7.8 g/dL (12.0-15.0); Immature Grans, Automated 0.3 %; Lymphocytes # (A) 3.69 X 10*3/uL (0.90-5.00); Lymphocytes % (A) 35.8 %; MCH 22.2 pg (27.0-32.0); MCHC 28.4 g/dL (32.0-37.0); MCV 78.1 fL (80.0-97.0); Mean Platelet Volume 10.3 fL (9.5-12.2); Monocytes # (A) 1.22 X 10*3/uL (0.20-1.00); Monocytes % (A) 11.8 %; NRBC Per 100 WBC 0 /100 WBCS (0.0-0.0); Neutrophils # (A) 5.22 X 10*3/uL (1.80-7.70); Neutrophils % (A) 50.5 %; Platelet Count 434 X 10*3/uL (140-440); RBC 3.52 X 10*6/uL (4.10-5.20); RDW 20.5 % (11.5-14.5); WBC 10.32 X 10*3/uL (4.50-10.00)
[2022-10-07] MEDS: SERTRALINE 50 MG TAB PO SCH (10:14)
[2022-10-07 10:54] LABS: Glucose,Whole Blood 116 mg/dL (70-110)
[2022-10-07 11:07] LABS: African American GFR (CKD) 126.7 (60.0-200.0); Anion Gap 11.8 mmol/L (10.00-18.00); BUN/Creat Ratio 8.33 Ratio (12.00-20.00); Calcium 8.9 mg/dL (8.7-10.3); Carbon Dioxide 20.2 mmol/L (20.0-27.5); Non-African American GFR(CKD) 109.3 (60.0-200.0); Potassium 3.3 mmol/L (3.5-5.5)
[2022-10-07] MEDS: GABAPENTIN 300 MG CAP PO SCH ×2 (13:56→20:57)
[2022-10-07] MEDS ORDERED: Potassium Replacement Protocol 1 EACH MISC MISCELLANE PRN ×2 (14:02→14:14)
[2022-10-07] MEDS: POTASSIUM CHLORIDE ER 20 MEQ TAB.ER PO SCH ×2 (14:44→17:43)
--- NOTE | 2022-10-07 15:59 | P.PN ---
Subjective Progress Note Date: 10/07/22 CHIEF COMPLAINT: Abdominal pain HISTORY OF PRESENT ILLNESS: Patient reports her abdominal pain was better after taking the Protonix. She did have some discomfort when she initially drink clear liquids. She is now having flatus. Denies any bowel movement. No further bleeding per rectum reported. She currently denies any abdominal pain. Afebrile. WBC 10.3 2H she be 7.8 platelets 434 sodium is 138 potassium 3.3 he needs and 2.0 PHYSICAL EXAM: VITAL SIGNS: Reviewed. GENERAL: Well-developed in no acute distress. HEENT: No sclera icterus. Extraocular movements grossly intact. Moist buccal mucosa. Head is atraumatic, normocephalic. ABDOMEN: Soft. Nondistended. Nontender. NEUROLOGIC: Alert and oriented. Cranial nerves II through XII grossly intact. ASSESSMENT: 1. Abdominal pain 2. Rectal bleeding resolved PLAN: -Advance diet to full liquids -Patient can be discharged from surgical standpoint if tolerating diet -Continue PPI Physician Oyster Unloader note has been reviewed by physician. Signing provider agrees with the documented findings, assessment, and plan of care. I have personally seen and examined the patient, reviewed the PROGRAM ELIGIBILITY SPECIALIST /PAs history, exam and MDM and agree with the assessment and plan as written. Based on total visit time, I have performed more than 50% of the visit. As above: Patient tolerating diet. Hemoglobin stable without any evidence of bleeding. Discussed with patient that we could offer repeat upper and lower endoscopy on Monday. She does not want to wait that long and would rather do this as an outpatient which is not unreasonable. If tolerates diet May discharge. Objective - Vital Signs Vital signs: Vital Signs Temp 98.6 F 10/07/22 07:00 Pulse 57 L 10/07/22 10:56 Resp 16 10/07/22 07:00 BP 148/69 10/07/22 10:56 Pulse Ox 99 10/07/22 10:56 FiO2 Intake & Output 10/06/22 10/07/22 10/07/22 18:59 06:59 18:59 Intake Total 480 Balance 480 Intake: Oral 480 Other: Voiding Method Toilet # Voids 1 # Bowel Movements 0 - Labs CBC & Chem 7: 10/07/22 04:37 10/07/22 04:37 Labs: Abnormal Lab Results - Last 24 Hours (Table) 10/06/22 10/07/22 10/07/22 Range/Units 19:20 04:37 04:37 WBC 11.1 H 10.32 H (3.8-10.6) k/uL RBC 3.68 L 3.52 L (3.80-5.40) m/uL Hgb 8.2 L 7.8 L (11.4-16.0) gm/dL Hct 28.3 L 27.5 L (34.0-46.0) % MCV 76.8 L 78.1 L (80.0-100.0) fL MCH 22.1 L 22.2 L (25.0-35.0) pg MCHC 28.8 L 28.4 L (31.0-37.0) g/dL RDW 19.5 H 20.5 H (11.5-15.5) % Monocytes # 1.22 H (0.20-1.00) X 10*3/uL Potassium 3.3 L (3.5-5.5) mmol/L BUN 5.0 L (9.0-27.0) mg/dL BUN/Creatinine Ratio 8.33 L (12.00-20.00) Ratio POC Glucose (mg/dL) (70-110) mg/dL 10/07/22 Range/Units 10:52 WBC (3.8-10.6) k/uL RBC (3.80-5.40) m/uL Hgb (11.4-16.0) gm/dL Hct (34.0-46.0) % MCV (80.0-100.0) fL MCH (25.0-35.0) pg MCHC (31.0-37.0) g/dL RDW (11.5-15.5) % Monocytes # (0.20-1.00) X 10*3/uL Potassium (3.5-5.5) mmol/L BUN (9.0-27.0) mg/dL BUN/Creatinine Ratio (12.00-20.00) Ratio POC Glucose (mg/dL) 116 H (70-110) mg/dL
[2022-10-07 17:35] LABS: Glucose,Whole Blood 115 mg/dL (70-110)
[2022-10-07] MEDS: ATORVASTATIN 20 MG TAB PO SCH (20:57)
[2022-10-07] MEDS: traZODone HCL 50 MG TAB PO SCH (20:57)
[2022-10-07] MEDS ORDERED: MELATONIN 5 MG TABLET PO SCH (21:00)
[2022-10-07 21:03] LABS: Glucose,Whole Blood 104 mg/dL (70-110)
[2022-10-08] MEDS: oxyCODONE-APAP 7.5-325MG 1 EACH TAB PO PRN ×3 (03:42→15:07)
[2022-10-08 06:08] LABS: Glucose,Whole Blood 201 mg/dL (70-110)
[2022-10-08] MEDS: INSULIN ASPART (NovoLOG) 100 UNIT/ML VIAL SQ SCH ×2 (06:20→12:46)
[2022-10-08 08:50] VITALS: BP 125/71; PULSE 81; RESP 18; TEMP 99.2
[2022-10-08] MEDS: SERTRALINE 50 MG TAB PO SCH (08:54)
[2022-10-08] MEDS: NICOTINE 21MG/24HR PATCH TRANSDERM SCH (08:54)
[2022-10-08] MEDS: GABAPENTIN 300 MG CAP PO SCH (08:54)
[2022-10-08] MEDS: PROPRANOLOL LA 80 MG CAP.SA.24H PO SCH (08:54)
[2022-10-08] MEDS: ASPIRIN 81 MG PO SCH (08:54)
[2022-10-08] MEDS: PANTOPRAZOLE 40 MG/10 ML VIAL IVP SCH (08:55)
[2022-10-08] MEDS: FLUTICASONE 50MCG/SPRAY NASAL 16GM EA NOSTRIL SCH (08:55)
--- NOTE | 2022-10-08 11:17 | P.PN ---
Progress Note - Text Progress Note Date: 10/08/22 Patient remains stable. She'll be discharged home per the medical service.
[2022-10-08 11:21] LABS: HCT 29.8 % (37.2-46.3); HGB 8.5 g/dL (12.0-15.0); MCH 22.4 pg (27.0-32.0); MCHC 28.5 g/dL (32.0-37.0); MCV 78.4 fL (80.0-97.0); Mean Platelet Volume 10.7 fL (9.5-12.2); NRBC Per 100 WBC 0 /100 WBCS (0.0-0.0); Platelet Count 445 X 10*3/uL (140-440); RDW 20.6 % (11.5-14.5); WBC 12.21 X 10*3/uL (4.50-10.00)
[2022-10-08] MEDS: BUTALB/APAP/CAFF 50-325-40MG TAB PO PRN (11:24)
[2022-10-08 11:54] LABS: Basophils # (A) 0.08 X 10*3/uL (0.00-0.10); Basophils % (A) 0.7 %; Eosinophils # (A) 0.08 X 10*3/uL (0.04-0.35); Eosinophils % (A) 0.7 %; Immature Grans, Automated 0.3 %; Lymphocytes # (A) 2.67 X 10*3/uL (0.90-5.00); Lymphocytes % (A) 21.9 %; Monocytes # (A) 1.51 X 10*3/uL (0.20-1.00); Monocytes % (A) 12.4 %; Neutrophils # (A) 7.83 X 10*3/uL (1.80-7.70)
[2022-10-08 12:34] LABS: Glucose,Whole Blood 107 mg/dL (70-110)
--- NOTE | 2022-10-08 13:20 | P.DS ---
Providers Date of admission: 10/06/22 00:48 Expected date of discharge: 10/08/22 Attending physician: Armando Blue MD Consults: 10/06/22 11:43 Consult Physician Routine Consulting Provider: Connie Cristobal Consult Reason/Comments: n/v/rectal bleeding, abd.pain Do you want consulting provider notified?: Yes Primary care physician: Armando Blue MD Hospital Course: Discharge diagnoses; Mid epigastric Abdominal pain accompanied by nausea vomiting 3 days with reported bloody stools in a patient with history of IBS, gastric ulcers, possible ileus, possible partial small bowel obstruction, possible GI bleed. Incidental finding of increasing size of ovarian cyst, further follow-up outpatient with [employer] Bilateral pleural effusions reported per CT Morbid obesity, BMI 39.5 Diabetes mellitus Hypertension Hyperlipidemia OA Anxiety Depression Ongoing nicotine dependence Hospital course; This a 47-year-old female with past medical history of irritable bowel syndrome, gastric ulcers, nicotine dependence, diabetes mellitus, hypertension, hyperlipidemia, osteoarthritis and multiple other medical issues ,reporting midepigastric abdominal pain accompanied by nausea, vomiting, blood in stools 3 days. Denies hematemesis or coffee-ground emesis. Reports abdominal pain waxes and wanes, sometimes sharp sometimes dull and achy. Reports since the onset of her symptoms, bowel movements have decreased. Patient reports tiny soft bowel movement this morning. Denies being around anyone ill. Denies fever or chills, cough, congestion, shortness of breath. Denies dysuria, hematuria, menses at this time, denies chest pain, palpitations, lightheadedness, dizziness or focal deficits. Reports she has been compliant with her home medications, including her PPI- Protonix that she takes daily but has been experiencing heartburn and states "it's not working". Radiology studies of abdomen and pelvis reported fecal material and gas throughout the colon and rectum, bilateral pleural effusions, ovarian cyst increased in size. Afebrile, T-max 99.9, normal WBC on admission, currently increased to 12.8, hemoglobin 8.3, platelets 402, electrolytes within normal limits, chloride 112, renal function stable troponin negative, glucose 124, alk phos 133, BNP 624. Influenza type A & B, RSV and coronavirus not detected. Patient has previously followed with Dr. Connie Cristobal, including EGD in 2019, reporting heel grade to lower esophageal valve, erosive esophagitis LA grade B, gastritis, superficial gastric ulcer. Patient also reports a normal colonoscopy last year. Maintained on gentle IV fluid hydration, PPI 10/07/2022 maintained on Bentyl and IV push Protonix with significant improvement. Nausea improved. Passing flatus, with no further bowel movements since yesterday morning. Increased her intake at dinner last night of clear liquids with worsened abdominal pain reported 2 hours afterwards. No emesis. Positive abdominal pain, now more localized left lower quadrant. Last night repeated hemoglobin 8.2, platelets mildly decreased ,384; repeat labs this morning pending. Blood sugars controlled, A1c 5.9. Evaluated by general surgery with recommendations noted and appreciated. 10/08. Patient hemoglobin is stable. Current tolerating full liquid diet. Surgery cleared the patient for discharge PHYSICAL EXAMINATION: GENERAL: The patient is alert and oriented x3, not in any acute distress. Well developed, well nourished. HEENT: Pupils are round and equally reacting to light. EOMI. No scleral icterus. No conjunctival pallor. Normocephalic, atraumatic. No pharyngeal erythema. No thyromegaly. CARDIOVASCULAR: S1 and S2 present. No murmurs, rubs, or gallops. PULMONARY: Chest is clear to auscultation, no wheezing or crackles. ABDOMEN: Soft, nontender, nondistended, normoactive bowel sounds. No palpable organomegaly. MUSCULOSKELETAL: No joint swelling or deformity. EXTREMITIES: No cyanosis, clubbing, or pedal edema. NEUROLOGICAL: Gross neurological examination did not reveal any focal deficits. SKIN: No rashes. Patient Condition at Discharge: Good Plan - Discharge Summary Discharge Rx Participant: No New Discharge Prescriptions: New Metoclopramide HCl [Reglan] 10 mg PO TID PRN #15 tablet PRN Reason: Nausea Aspirin 81 mg PO DAILY #30 tab Dicyclomine [Bentyl] 10 mg PO TID PRN #21 cap PRN Reason: Dyspepsia Atorvastatin [Lipitor] 20 mg PO HS #30 tab Continue hydroCHLOROthiazide [Hydrodiuril] 25 mg PO DAILY Sertraline [Zoloft] 150 mg PO DAILY Propranolol HCl [Inderal Xl] 80 mg PO DAILY oxyCODONE-APAP 7.5-325MG [Percocet 7.5-325 mg] 1 tab PO QID PRN PRN Reason: Pain Medroxyprogesterone Acetate [Depo-Provera] 150 mg IM Q90D Fluticasone Nasal [place] [Flonase Nasal [place]] 1 spr EA NOSTRIL BID Ascorbic Acid [Vitamin C] 1,000 mg PO DAILY Lidocaine 5% Oint [Xylocaine 5% Oint] 1 applic TOPICAL BID PRN PRN Reason: Pain Gabapentin 300 mg PO BID Amitriptyline HCl [Elavil] 25 mg PO HS Ondansetron [Zofran] 4 mg PO Q8HR PRN PRN Reason: Nausea Naloxone HCl [Narcan] 4 mg NASAL DIRECTED PRN PRN Reason: overdose hydrOXYzine pamoate [hydrOXYzine PAMOATE] 25 mg PO TID PRN PRN Reason: Anxiety Butalb/APAP/Caff 50-325-40Mg [Fioricet 50-325-40] 1 tab PO DAILY PRN PRN Reason: Migraine Headache Discontinued traZODone HCL 50 mg PO HS Discharge Medication List hydroCHLOROthiazide [Hydrodiuril] 25 mg PO DAILY 12/27/17 [History] Propranolol HCl [Inderal Xl] 80 mg PO DAILY 01/06/19 [History] Sertraline [Zoloft] 150 mg PO DAILY 01/06/19 [History] Ascorbic Acid [Vitamin C] 1,000 mg PO DAILY 07/31/20 [History] Fluticasone Nasal [place] [Flonase Nasal [place]] 1 spr EA NOSTRIL BID 07/31/20 [History] Medroxyprogesterone Acetate [Depo-Provera] 150 mg IM Q90D 07/31/20 [History] oxyCODONE-APAP 7.5-325MG [Percocet 7.5-325 mg] 1 tab PO QID PRN 07/31/20 [History] Metoclopramide HCl [Reglan] 10 mg PO TID PRN #15 tablet 10/05/22 [Rx] Amitriptyline HCl [Elavil] 25 mg PO HS 10/06/22 [History] Butalb/APAP/Caff 50-325-40Mg [Fioricet 50-325-40] 1 tab PO DAILY PRN 10/06/22 [History] Gabapentin 300 mg PO BID 10/06/22 [History] Lidocaine 5% Oint [Xylocaine 5% Oint] 1 applic TOPICAL BID PRN 10/06/22 [History] Naloxone HCl [Narcan] 4 mg NASAL DIRECTED PRN 10/06/22 [History] Ondansetron [Zofran] 4 mg PO Q8HR PRN 10/06/22 [History] hydrOXYzine pamoate [hydrOXYzine PAMOATE] 25 mg PO TID PRN 10/06/22 [History] Aspirin 81 mg PO DAILY #30 tab 10/08/22 [Rx] Atorvastatin [Lipitor] 20 mg PO HS #30 tab 10/08/22 [Rx] Dicyclomine [Bentyl] 10 mg PO TID PRN #21 cap 10/08/22 [Rx] Follow up Appointment(s)/Referral(s): Armando Blue MD [Primary Care Provider] - 1-2 days Patient Instructions/Handouts: Abdominal Pain (ED) Discharge Disposition: HOME SELF-CARE
== END 2022-10-08 15:27 | disposition home or self-care (01) ==
LOC: EC 18:18 → 6NMEDSUR 10-06 00:48
PROVIDERS: ADMIT Family Medicine; ATTEND Family Medicine
DX: R10.13 Epigastric pain (principal); J90 Pleural effusion, not elsewhere classified; D64.9 Anemia, unspecified; E11.9 Type 2 diabetes mellitus without complications; I10 Essential (primary) hypertension; E78.5 Hyperlipidemia, unspecified; F17.200 Nicotine dependence, unspecified, uncomplicated; Z87.11 Personal history of peptic ulcer disease; M19.90 Unspecified osteoarthritis, unspecified site; N83.209 Unspecified ovarian cyst, unspecified side; E66.01 Morbid (severe) obesity due to excess calories; Z68.39 Body mass index [BMI] 39.0-39.9, adult; Z20.822 Contact with and (suspected) exposure to COVID-19; K22.10 Ulcer of esophagus without bleeding; G43.909 Migraine, unspecified, not intractable, without status migrainosus; Z90.49 Acquired absence of other specified parts of digestive tract; Z98.890 Other specified postprocedural states; F41.9 Anxiety disorder, unspecified; F32.A Depression, unspecified; Z87.19 Personal history of other diseases of the digestive system; Z83.3 Family history of diabetes mellitus; Z79.890 Hormone replacement therapy; Z79.899 Other long term (current) drug therapy; Z88.8 Allergy status to other drugs, medicaments and biological substances; Z91.011 Allergy to milk products
CPT/HCPCS: 96376 ×4; 96375 ×2; 96361; 96374; 99285; 36415 ×2; 93005; 83880; 80053; 80048; 83735; 84484; 85025 ×3; 85027; 82272; 83036; 87635; 87636; 74018; 74176; G0378 ×3; S4990 ×3; J2765; J2405 ×2; J1170 ×3; C9113 ×2

== ENCOUNTER 2022-12-31 15:18 | Emergency (ER) | payer OTHER ==
[2022-12-31] MEDS ORDERED: ONDANSETRON 4 MG/2 ML VIAL IVP STA (15:52)
[2022-12-31] MEDS ORDERED: SODIUM CHLORIDE 0.9% 1,000 ML IV ONE (15:52)
[2022-12-31] MEDS ORDERED: MORPHINE SULFATE 4 MG/ML SYRINGE IV STA (15:52)
--- NOTE | 2022-12-31 16:07 | ED ---
Abdominal Pain HPI - General Chief Complaint: Abdominal Pain Stated Complaint: Nausea,vomiting Source: patient Mode of arrival: ambulatory Limitations: no limitations - History of Present Illness Initial Comments: This patient is a 47-year-old woman presenting to have evaluation for upper abdominal pain that is been going on since Monday. She states she has had associated nausea and vomiting. She has not been able to take much in the way of fluids to drink. She states that she has vomiting when she tries. She has not attempted to eat anything. Patient notes that she has not had bowel movements. No change in urination. MD Complaint: abdominal pain Onset/Timin -: days(s) Location: LUQ, RUQ, epigastric Radiation: none Migration to: no migration Severity: moderate Quality: cramping, aching, fullness Consistency: constant Improves With: nothing Worsens With: nothing Associated Symptoms: nausea, vomiting - Related Data LMP (females 10-50): 3 weeks Patient : No Home Medications Medication Instructions Recorded Confirmed hydroCHLOROthiazide [Hydrodiuril] 25 mg PO DAILY 12/27/17 12/31/22 Propranolol HCl [Inderal Xl] 80 mg PO DAILY 01/06/19 12/31/22 Sertraline [Zoloft] 150 mg PO DAILY 01/06/19 12/31/22 Fluticasone Nasal [place] [Flonase 1 spray EA NOSTRIL BID 07/31/20 12/31/22 Nasal [place]] Medroxyprogesterone Acetate 150 mg IM Q90D 07/31/20 12/31/22 [Depo-Provera] oxyCODONE-APAP 7.5-325MG [Percocet 1 tab PO QID PRN 07/31/20 12/31/22 7.5-325 mg] Butalb/APAP/Caff 50-325-40Mg 1 tab PO DAILY PRN 10/06/22 12/31/22 [Fioricet 50-325-40] Gabapentin 300 mg PO BID 10/06/22 12/31/22 Naloxone HCl [Narcan] 4 mg NASAL DIRECTED PRN 10/06/22 12/31/22 Ondansetron [Zofran] 4 mg PO Q8HR PRN 10/06/22 12/31/22 hydrOXYzine pamoate [hydrOXYzine 25 mg PO TID PRN 10/06/22 12/31/22 PAMOATE] Aspirin EC [Ecotrin Low Dose] 81 mg PO DAILY 12/31/22 12/31/22 Ibuprofen [Motrin] 800 mg PO TID 12/31/22 12/31/22 Liraglutide [Saxenda] 1.8 mg SQ DAILY 12/31/22 12/31/22 Omeprazole [PriLOSEC] 40 mg PO DAILY 12/31/22 12/31/22 traMADol HCL 50 mg PO DAILY PRN 12/31/22 12/31/22 traZODone HCL [Desyrel] 50 mg PO HS PRN 12/31/22 12/31/22 Previous Rx's Medication Instructions Recorded Atorvastatin [Lipitor] 20 mg PO HS #30 tab 10/08/22 Dicyclomine [Bentyl] 10 mg PO TID PRN #21 cap 10/08/22 Pantoprazole Sodium [Protonix] 40 mg PO AC-BRKFST #30 tab 10/08/22 Dicyclomine [Bentyl] 20 mg PO QID #15 tablet 12/31/22 Metoclopramide [Reglan] 10 mg PO ACHS PRN #8 tab 12/31/22 Allergies Allergy/AdvReac Type Severity Reaction Status Date / Time citalopram hydrobromide AdvReac Severe Migraine Verified 12/31/22 17:27 [From Celexa] lactose AdvReac Unknown Verified 12/31/22 17:27 Review of Systems ROS Statement: Those systems with pertinent positive or pertinent negative responses have been documented in the HPI. ROS Other: All systems not noted in ROS Statement are negative. Constitutional: Denies: fever, chills Respiratory: Denies: cough, dyspnea Cardiovascular: Denies: chest pain, palpitations Gastrointestinal: Reports: abdominal pain, nausea, vomiting. Denies: diarrhea Genitourinary: Denies: dysuria, hematuria Musculoskeletal: Denies: back pain Skin: Denies: rash Neurological: Denies: headache, weakness, numbness Past Medical History Past Medical History: Diabetes Mellitus, Hyperlipidemia, Hypertension, Osteoarthritis (OA) Additional Past Medical History / Comment(s): ibs , seasonal allergies, PCOS, MIGRAINES History of Any Multi-Drug Resistant Organisms: None Reported Past Surgical History: Cholecystectomy, Orthopedic Surgery Additional Past Surgical History / Comment(s): colonoscopy, d & c. LT KNEE SX X 4. HEMORRHOID BANDING Past Anesthesia/Blood Transfusion Reactions: No Reported Reaction Past Psychological History: Anxiety, Depression Smoking Status: Current every day smoker Past Alcohol Use History: None Reported Past Drug Use History: None Reported - Past Family History Father Family Medical History: Diabetes Mellitus Mother Family Medical History: No Reported History General Exam Limitations: no limitations General appearance: alert, in no apparent distress Head exam: Present: atraumatic, normocephalic Eye exam: Present: normal appearance. Absent: scleral icterus, conjunctival injection ENT exam: Present: normal oropharynx Neck exam: Present: normal inspection Respiratory exam: Present: normal lung sounds bilaterally. Absent: respiratory distress, wheezes, rales, rhonchi, stridor Cardiovascular Exam: Present: regular rate, normal rhythm, normal heart sounds. Absent: systolic murmur, diastolic murmur, rubs, gallop GI/Abdominal exam: Present: soft, tenderness, hypoactive bowel sounds. Absent: distended, guarding, rebound, rigid, mass, pulsatile mass Extremities exam: Present: normal inspection, normal capillary refill. Absent: pedal edema, calf tenderness Back exam: Present: normal inspection. Absent: CVA tenderness (R), CVA tenderness (L) Neurological exam: Present: alert Skin exam: Present: warm, dry, intact, normal color. Absent: rash Course Vital Signs 12/31/22 12/31/22 12/31/22 15:21 16:18 17:37 Temperature 98.2 F Pulse Rate 93 83 80 Respiratory 20 18 18 Rate Blood Pressure 90/61 135/77 133/68 O2 Sat by Pulse 99 100 100 Oximetry 12/31/22 12/31/22 18:33 18:47 Temperature 99.4 F Pulse Rate 82 Respiratory 18 Rate Blood Pressure 154/84 O2 Sat by Pulse 98 Oximetry Medical Decision Making - Medical Decision Making This patient's 47-year-old woman here with abdominal pain, nausea and vomiting. The patient does note that she had recently been started on saxenda, and believes she may be having side effects. I indeed the lab workup does reveal elevated lipase and she is having most of the rest of this, and side effect profile of this medication. We discussed appropriate further care and follow-up as well as return parameters. Workup does include CT of the abdomen and she was having some upper abdominal tenderness. I interpreted this as not revealing acute surgical condition or bowel obstruction. The patient is feeling better following medications here and would like to go home. She will discuss changing medication with her primary physician. We discussed appropriate return parameters. Was pt. sent in by a medical professional or institution ([facility], [employer], urgent care, hospital, or [facility]...) When possible be specific @ -[No] Did you speak to anyone other than the patient for history (EMS, parent, family, police, friend...)? What history was obtained from this source @ -[No] Did you review nursing and triage notes (agree or disagree)? Why? @ -[I reviewed and agree with nursing and triage notes] Were old charts reviewed (outside hosp., previous admission, EMS record, old EKG, old radiological studies, urgent care reports/EKG's, [facility] records)? Report findings @ -[No old charts were reviewed] Differential Diagnosis (chest pain, altered mental status, abdominal pain women, abdominal pain men, vaginal bleeding, weakness, fever, dyspnea, syncope, headache, dizziness, GI bleed, back pain, seizure, CVA, palpatations, mental health, musculoskeletal)? @ -[Differential Abdominal Pain Women: Appendicitis, Cholecystitis, diverticulosis, ischemic bowel, pancreatitis, hepatitis, UTI, gastroenteritis, AAA, incarcerated hernia, bowel obstruction, constipation, inflammatory bowel, hepatitis, peptic ulcer disease, splenic infarction, perforated viscus, vulvitis, ovarian torsion, PID, kidney stone, placenta abruption, this is not meant to be an all-inclusive list EKG interpreted by me (3pts min.). @ -[ X-rays interpreted by me (1pt min.). @ -[None done] CT interpreted by me (1pt min.). @ -[As above U/S interpreted by me (1pt. min.). @ -[None done] What testing was considered but not performed or refused? (CT, X-rays, U/S, labs)? Why? @ -[None] What meds were considered but not given or refused? Why? @ -[None] Did you discuss the management of the patient with other professionals (professionals i.e. [facility], [employer], lab, RT, psych nurse, geriatric social worker, account supervisor, teacher, child support officer, supportive employment case manager)? Give summary @ -[No] Was smoking cessation discussed for >3mins.? @ -[No] Was critical care preformed (if so, how long)? @ -[No] Were there social determinants of health that impacted care today? How? (Homelessness, low income, unemployed, alcoholism, drug addiction, transportation, low edu. Level, literacy, decrease access to med. care, skilled nursing, rehab)? @ -[No] Was there de-escalation of care discussed even if they declined (Discuss DNR or withdrawal of care, Hospice)? DNR status @ -[No] What co-morbidities impacted this encounter? (DM, HTN, Smoking, COPD, CAD, Cancer, CVA, ARF, Chemo, Hep., AIDS, mental health diagnosis, sleep apnea, morbid obesity)? @ -[None] Was patient admitted / discharged? Hospital course, mention meds given and route, prescriptions, significant lab abnormalities, going to OR and other pertinent info. @ -[Discharged, as above Undiagnosed new problem with uncertain prognosis? @ -[No] Drug Therapy requiring intensive monitoring for toxicity (Heparin, Nitro, Insu gabriela, Cardizem)? @ -[No] Were any procedures done? @ -[No] Diagnosis/symptom? @ -[Acute abdominal pain, uncomplicated Acute, or Chronic, or Acute on Chronic? @ -[default] Uncomplicated (without systemic symptoms) or Complicated (systemic symptoms)? @ -[default] Side effects of treatment? @ -[No] Exacerbation, Progression, or Severe Exacerbation? @ -[No] Poses a threat to life or bodily function? How? (Chest pain, [place], [place], pneumonia, PE, COPD, DKA, ARF, appy, cholecystitis, CVA, Diverticulitis, Homicidal, Suicidal, threat to staff... and all critical care pts) @ -[No] - Lab Data Result diagrams: 12/31/22 16:20 12/31/22 16:20 Lab Results 12/31/22 12/31/22 12/31/22 Range/Units 16:20 16:20 16:20 WBC 13.8 H (3.8-10.6) k/uL RBC 4.69 (3.80-5.40) m/uL Hgb 10.6 L (11.4-16.0) gm/dL Hct 34.9 (34.0-46.0) % MCV 74.3 L (80.0-100.0) fL MCH 22.6 L (25.0-35.0) pg MCHC 30.4 L (31.0-37.0) g/dL RDW 19.1 H (11.5-15.5) % Plt Count 462 H (150-450) k/uL MPV 6.7 Neutrophils % 62 % Lymphocytes % 28 % Monocytes % 6 % Eosinophils % 2 % Basophils % 0 % Neutrophils # 8.6 H (1.3-7.7) k/uL Lymphocytes # 3.8 (1.0-4.8) k/uL Monocytes # 0.9 (0-1.0) k/uL Eosinophils # 0.2 (0-0.7) k/uL Basophils # 0.1 (0-0.2) k/uL Hypochromasia Marked Poikilocytosis Slight Anisocytosis Slight Microcytosis Moderate Sodium 135 L (137-145) mmol/L Potassium 3.2 L (3.5-5.1) mmol/L Chloride 105 (98-107) mmol/L Carbon Dioxide 17 L (22-30) mmol/L Anion Gap 13 mmol/L BUN 11 (7-17) mg/dL Creatinine 0.71 (0.52-1.04) mg/dL Est GFR (CKD-EPI)AfAm >90 (>60 ml/min/1.73 sqM) Est GFR (CKD-EPI)NonAf >90 (>60 ml/min/1.73 sqM) Glucose 88 (74-99) mg/dL Plasma Lactic Acid Claude 1.5 (0.7-2.0) mmol/L Calcium 9.3 (8.4-10.2) mg/dL Total Bilirubin 0.5 (0.2-1.3) mg/dL AST 47 H (14-36) U/L ALT 42 H (4-34) U/L Alkaline Phosphatase 149 H (38-126) U/L C-Reactive Protein <0.5 (<1.0) mg/dL Total Protein 8.0 (6.3-8.2) g/dL Albumin 4.4 (3.5-5.0) g/dL Amylase 123 H (30-110) U/L Lipase 376 H (23-300) U/L Urine Color Urine Appearance (Clear) Urine pH (5.0-8.0) Ur Specific [place] (1.001-1.035) Urine Protein (Negative) Urine Glucose (UA) (Negative) Urine Ketones (Negative) Urine Blood (Negative) Urine Nitrite (Negative) Urine Bilirubin (Negative) Urine Urobilinogen (<2.0) mg/dL Ur Leukocyte Esterase (Negative) 12/31/22 Range/Units 18:43 WBC (3.8-10.6) k/uL RBC (3.80-5.40) m/uL Hgb (11.4-16.0) gm/dL Hct (34.0-46.0) % MCV (80.0-100.0) fL MCH (25.0-35.0) pg MCHC (31.0-37.0) g/dL RDW (11.5-15.5) % Plt Count (150-450) k/uL MPV Neutrophils % % Lymphocytes % % Monocytes % % Eosinophils % % Basophils % % Neutrophils # (1.3-7.7) k/uL Lymphocytes # (1.0-4.8) k/uL Monocytes # (0-1.0) k/uL Eosinophils # (0-0.7) k/uL Basophils # (0-0.2) k/uL Hypochromasia Poikilocytosis Anisocytosis Microcytosis Sodium (137-145) mmol/L Potassium (3.5-5.1) mmol/L Chloride (98-107) mmol/L Carbon Dioxide (22-30) mmol/L Anion Gap mmol/L BUN (7-17) mg/dL Creatinine (0.52-1.04) mg/dL Est GFR (CKD-EPI)AfAm (>60 ml/min/1.73 sqM) Est GFR (CKD-EPI)NonAf (>60 ml/min/1.73 sqM) Glucose (74-99) mg/dL Plasma Lactic Acid Claude (0.7-2.0) mmol/L Calcium (8.4-10.2) mg/dL Total Bilirubin (0.2-1.3) mg/dL AST (14-36) U/L ALT (4-34) U/L Alkaline Phosphatase (38-126) U/L C-Reactive Protein (<1.0) mg/dL Total Protein (6.3-8.2) g/dL Albumin (3.5-5.0) g/dL Amylase (30-110) U/L Lipase (23-300) U/L Urine Color Light Yellow Urine Appearance Clear (Clear) Urine pH 7.0 (5.0-8.0) Ur Specific [place] 1.005 (1.001-1.035) Urine Protein Negative (Negative) Urine Glucose (UA) Negative (Negative) Urine Ketones Negative (Negative) Urine Blood Negative (Negative) Urine Nitrite Negative (Negative) Urine Bilirubin Negative (Negative) Urine Urobilinogen <2.0 (<2.0) mg/dL Ur Leukocyte Esterase Negative (Negative) Disposition Clinical Impression: Abdominal pain Disposition: HOME SELF-CARE Condition: Good Instructions (If sedation given, give patient instructions): Abdominal Pain (ED) Additional Instructions: As we discussed, follow with your physician to see about changing medications. Prescriptions: Dicyclomine [Bentyl] 20 mg PO QID #15 tablet Metoclopramide [Reglan] 10 mg PO ACHS PRN #8 tab PRN Reason: Vomiting Is patient prescribed a controlled substance at d/c from ED?: No Referrals: Armando Blue MD [Primary Care Provider] - 1-2 days
[2022-12-31 16:21] VITALS: RESP 18
[2022-12-31 16:26] LABS: Anisocytosis Slight; Basophils # (A) 0.1 k/uL (0-0.2); Basophils % (A) 0 %; Eosinophils # (A) 0.2 k/uL (0-0.7); Eosinophils % (A) 2 %; HCT 34.9 % (34.0-46.0); HGB 10.6 gm/dL (11.4-16.0); Hypochromasia Marked; Lymphocytes # (A) 3.8 k/uL (1.0-4.8); Lymphocytes % (A) 28 %; MCH 22.6 pg (25.0-35.0); MCHC 30.4 g/dL (31.0-37.0); MCV 74.3 fL (80.0-100.0); Mean Platelet Volume 6.7; Microcytosis Moderate; Monocytes # (A) 0.9 k/uL (0-1.0); Monocytes % (A) 6 %; Neutrophils # (A) 8.6 k/uL (1.3-7.7); Neutrophils % (A) 62 %; Platelet Count 462 k/uL (150-450); Poikilocytosis Slight; RBC 4.69 m/uL (3.80-5.40); RDW 19.1 % (11.5-15.5); WBC 13.8 k/uL (3.8-10.6)
[2022-12-31 16:36] LABS: ALT 42 U/L (4-34); AST 47 U/L (14-36); African American GFR (CKD) >90 (>60 ml/min/1.73 sqM); Albumin 4.4 g/dL (3.5-5.0); Alkaline Phosphatase 149 U/L (38-126); Amylase 123 U/L (30-110); Anion Gap 13 mmol/L; Blood Urea Nitrogen 11 mg/dL (7-17); C Reactive Protein <0.5 mg/dL (<1.0); Calcium 9.3 mg/dL (8.4-10.2); Carbon Dioxide 17 mmol/L (22-30); Chloride 105 mmol/L (98-107); Glucose 88 mg/dL (74-99); Lipase 376 U/L (23-300); Non-African American GFR(CKD) >90 (>60 ml/min/1.73 sqM); Potassium 3.2 mmol/L (3.5-5.1); Sodium 135 mmol/L (137-145); Total Bilirubin 0.5 mg/dL (0.2-1.3)
--- NOTE | 2022-12-31 16:54 | CT ---
EXAMINATION TYPE: CT abdomen pelvis wo con DATE OF EXAM: 12/31/2022 COMPARISON: HISTORY: abdominal pain, vomiting CT DLP: 1177.2 mGycm Examination of the solid and hollow viscera is limited given the lack of contrast. FINDINGS: LUNG BASES: No evidence for nodule. No evidence for infiltrate. LIVER/GB: The gallbladder is surgically absent. No space-occupying hepatic lesion. PANCREAS: No pancreatic mass identified. No inflammatory process seen. SPLEEN: No evidence for splenomegaly. No intrasplenic lesions seen. ADRENALS: No adrenal nodules identified. No evidence for thickening. KIDNEYS: No evidence for renal mass. No nephrolithiasis. No hydronephrosis. BOWEL: Appendix has a normal appearance. No evidence of bowel obstruction. No inflammatory process. Lymph nodes: No evidence for adenopathy greater than 1 cm. Abdominal aorta: Atheromatous changes seen. No evidence for aneurysm. Genital organs: Bilobed cystic structure within the cul-de-sac region to the right of midline with co mponents measuring 5.9 cm and 3.2 cm versus 5.7 cm and 3.3 cm previously. Tubal ligation clip left ad nexa. The uterus is unremarkable. Other: No significant abnormality. IMPRESSION: Bilobed cystic structure within the cul-de-sac region to the right of midline with components measuri ng 5.9 cm and 3.2 cm versus 5.7 cm and 3.3 cm previously. Consider sonographic correlation.
[2022-12-31] MEDS ORDERED: HYDROmorphone 0.5 MG/0.5 ML SYRINGE IVP STA (17:06)
[2022-12-31] MEDS ORDERED: METOCLOPRAMIDE 5 MG/ML 2 ML VIAL IVP STA (17:30)
[2022-12-31] MEDS ORDERED: methylPREDNISolone SOD SUCCI 125 MG/2 ML VIAL IV STA (18:08)
[2022-12-31 18:34] VITALS: BP 154/84; PULSE 82
[2022-12-31 18:50] VITALS: TEMP 99.4
[2022-12-31 19:19] LABS: Appearance,Urine Clear (Clear); Bilirubin,Urine Negative (Negative); Blood,Urine Negative (Negative); Color,Urine Light Yellow; Glucose,Urine (UA) Negative (Negative); Ketones,Urine Negative (Negative); Leukocyte Esterase,Urine Negative (Negative); Nitrite,Urine Negative (Negative); Protein,Urine Negative (Negative); Specific Gravity,Urine 1.005 (1.001-1.035); Urobilinogen,Urine <2.0 mg/dL (<2.0)
== END 2022-12-31 19:00 | disposition home or self-care (01) ==
LOC: EC 15:18
DX: R10.13 Epigastric pain (principal); E11.9 Type 2 diabetes mellitus without complications; I10 Essential (primary) hypertension; M19.90 Unspecified osteoarthritis, unspecified site; F41.9 Anxiety disorder, unspecified; F32.A Depression, unspecified; F17.200 Nicotine dependence, unspecified, uncomplicated; Z79.1 Long term (current) use of non-steroidal anti-inflammatories (NSAID); Z79.84 Long term (current) use of oral hypoglycemic drugs; Z79.82 Long term (current) use of aspirin; Z79.899 Other long term (current) drug therapy; Z91.011 Allergy to milk products; Z88.8 Allergy status to other drugs, medicaments and biological substances; Z79.85 Long-term (current) use of injectable non-insulin antidiabetic drugs
CPT/HCPCS: 36415; 80053; 82150; 83605; 83690; 85025; 86140; 81003; 74176; 99284; 96374; 96375 ×3; 96361; J2270; J2765; J2405; J1170

== ENCOUNTER 2023-07-28 15:40 | Emergency (ER) | payer OTHER ==
[2023-07-28 16:22] VITALS: RESP 18; TEMP 98.9
[2023-07-28 17:52] LABS: Appearance,Urine Clear (Clear); Bacteria,Urine Rare /hpf; Bilirubin,Urine Negative (Negative); Blood,Urine Negative (Negative); Color,Urine Colorless; Glucose,Urine (UA) Negative (Negative); Ketones,Urine Negative (Negative); Leukocyte Esterase,Urine Small (Negative); Mucus,Urine Rare /hpf; Nitrite,Urine Negative (Negative); Protein,Urine Negative (Negative); RBC,Urine 1 /hpf (0-5); Specific Gravity,Urine 1.009 (1.001-1.035); Squamous Epithelial Cell,Urine 2 /hpf (0-4); Urobilinogen,Urine <2.0 mg/dL (<2.0); WBC,Urine 2 /hpf (0-5)
[2023-07-28 17:53] LABS: ALT 20 U/L (4-34); AST 30 U/L (14-36); African American GFR (CKD) >90 (>60 ml/min/1.73 sqM); Alkaline Phosphatase 131 U/L (38-126); Amylase 59 U/L (30-110); Anion Gap 10 mmol/L; Blood Urea Nitrogen 10 mg/dL (7-17); Calcium 9.1 mg/dL (8.4-10.2); Carbon Dioxide 24 mmol/L (22-30); Chloride 104 mmol/L (98-107); Glucose 91 mg/dL (74-99); Lipase 62 U/L (23-300); Non-African American GFR(CKD) >90 (>60 ml/min/1.73 sqM); Potassium 3.7 mmol/L (3.5-5.1); Sodium 138 mmol/L (137-145); Total Bilirubin 0.3 mg/dL (0.2-1.3); Total Protein 7.4 g/dL (6.3-8.2)
[2023-07-28] MEDS ORDERED: DICYCLOMINE 10 MG/ML 2 ML AMP IM STA (17:58)
[2023-07-28 18:02] LABS: Anisocytosis Moderate; Basophils # (A) 0.1 k/uL (0-0.2); Basophils % (A) 0 %; Eosinophils # (A) 0.4 k/uL (0-0.7); Eosinophils % (A) 2 %; HCT 25.6 % (34.0-46.0); HGB 7.5 gm/dL (11.4-16.0); Hypochromasia Marked; Lymphocytes # (A) 4.4 k/uL (1.0-4.8); Lymphocytes % (A) 27 %; MCH 22.5 pg (25.0-35.0); MCHC 29.1 g/dL (31.0-37.0); MCV 77.3 fL (80.0-100.0); Mean Platelet Volume 7.8; Microcytosis Moderate; Monocytes # (A) 0.8 k/uL (0-1.0); Monocytes % (A) 5 %; Neutrophils # (A) 10.3 k/uL (1.3-7.7); Neutrophils % (A) 63 %; Platelet Count 557 k/uL (150-450); Poikilocytosis Moderate; RBC 3.32 m/uL (3.80-5.40); RDW 21.7 % (11.5-15.5); WBC 16.5 k/uL (3.8-10.6)
[2023-07-28] MEDS ORDERED: MORPHINE SULFATE 4 MG/ML SYRINGE IV STA (19:17)
--- NOTE | 2023-07-28 19:23 | CT ---
EXAMINATION TYPE: CT abdomen pelvis wo con CT DLP: 1122.6 mGycm, Automated exposure control for dose reduction was used. DATE OF EXAM: 07/28/2023 6:36 PM COMPARISON: CT abdomen pelvis most recent from 12/31/2022. CLINICAL INDICATION:Female, 47 years old with history of abdominal pain; Epigastric pain radiating to wards back TECHNIQUE: Axial CT of the ;CT abdomen pelvis wo con;Sagittal and coronal reformats were created on a separate workstation. Contrast used: mL of , (none if empty) Oral contrast used: without Oral Contrast (none if empty) FINDINGS: LOWER CHEST: Lipomatous hypertrophy changes intra-atrial septum. ABDOMEN LIVER: Unremarkable GALLBLADDER AND BILE DUCTS: Gallbladder surgically absent. PANCREAS: No inflammatory changes. No ductal dilation. SPLEEN: Unremarkable. ADRENAL GLANDS: Unremarkable. KIDNEYS AND URETERS: No evidence of hydronephrosis or renal calculus. The ureters are unremarkable. PELVIS BLADDER: Unremarkable REPRODUCTIVE: Large right adnexal cystic structure measuring up to 6.6 cm. Small cystic structure is also present measuring up to 3.2 cm this may be a tubular structure with possible communication of th collette 2 cystic lesions which would suggest hydrosalpinx versus complicated cyst. ABDOMEN & PELVIS STOMACH AND BOWEL: There is small hiatal hernia. No evidence of bowel obstruction. Large amount stool throughout the colon. PERITONEUM/RETROPERITONEUM: No evidence of pneumoperitoneum or free fluid. VASCULATURE: No evidence of aortic aneurysm. MUSCULOSKELETAL: No acute osseous abnormalities LYMPH NODES: No gross evidence for lymphadenopathy. SOFT TISSUE/ABDOMINAL WALL: Unremarkable IMPRESSION: 1. Small hiatal hernia otherwise no acute abdominal process is definitively visualized. No evidence for pancreatitis or evidence of aneurysm is dilation of the aorta. 2. Large right adnexal cystic structure which could represent ovarian cysts versus hydrosalpinx furt her evaluation with MRI recommended given its increase in size from 12/31/2022.
[2023-07-28 19:43] VITALS: BP 128/66; PULSE 87
[2023-07-28] MEDS ORDERED: DOXYCYCLINE 100 MG CAP PO STA (21:19)
[2023-07-28] MEDS ORDERED: HYDROmorphone 1 MG/ML 1 ML SYRINGE IVP STA (21:46)
--- NOTE | 2023-07-28 21:50 | ED ---
Abdominal Pain HPI - General Chief Complaint: Abdominal Pain Stated Complaint: stomach issue bloody stool Time Seen by Provider: 07/28/23 16:57 Source: patient Mode of arrival: ambulatory Limitations: no limitations - History of Present Illness Initial Comments: This patient is 47-year-old woman who presents to have evaluation of pelvic pain that is been going on approximately one month now. In addition, patient complains of being constipated, she states that she had to manually remove some stool and that it seemed very dark. Patient denies fever or chills. No nausea or vomiting. No upper abdominal pain. MD Complaint: abdominal pain Onset/Timin -: month(s) Location: LLQ, RLQ Radiation: none Migration to: no migration Severity: moderate Quality: cramping, sharp Consistency: constant Improves With: nothing Worsens With: nothing Associated Symptoms: constipation - Related Data Home Medications Medication Instructions Recorded Confirmed hydroCHLOROthiazide [Hydrodiuril] 25 mg PO DAILY 12/27/17 07/28/23 Propranolol HCl [Inderal Xl] 80 mg PO DAILY 01/06/19 07/28/23 Sertraline [Zoloft] 150 mg PO DAILY 01/06/19 07/28/23 Fluticasone Nasal [place] [Flonase 1 spray EA NOSTRIL BID 07/31/20 07/28/23 Nasal [place]] Medroxyprogesterone Acetate 150 mg IM Q84D 07/31/20 07/28/23 [Depo-Provera] oxyCODONE-APAP 7.5-325MG [Percocet 1 tab PO TID 07/31/20 07/28/23 7.5-325 mg] Butalb/APAP/Caff 50-325-40Mg 1 tab PO DAILY PRN 10/06/22 07/28/23 [Fioricet 50-325-40] Gabapentin 300 mg PO BID 10/06/22 07/28/23 Naloxone HCl [Narcan] 4 mg NASAL DIRECTED PRN 10/06/22 07/28/23 hydrOXYzine pamoate [hydrOXYzine 25 mg PO TID PRN 10/06/22 07/28/23 PAMOATE] Aspirin EC [Ecotrin Low Dose] 81 mg PO DAILY 12/31/22 07/28/23 Ibuprofen [Motrin] 800 mg PO TID 12/31/22 07/28/23 Liraglutide [Saxenda] 1.2 mg SQ DAILY 12/31/22 07/28/23 traZODone HCL [Desyrel] 50 mg PO HS PRN 12/31/22 07/28/23 Amitriptyline HCl [Elavil] 25 mg PO HS 07/28/23 07/28/23 Lidocaine 5% Oint [Xylocaine 5% 1 applic TOPICAL BID 07/28/23 07/28/23 Oint] Nicotine 21Mg/24Hr Patch [Habitrol] 1 patch TRANSDERM DAILY 07/28/23 07/28/23 Previous Rx's Medication Instructions Recorded Pantoprazole Sodium [Protonix] 40 mg PO AC-BRKFST #30 tab 10/08/22 Doxycycline [Vibramycin] 100 mg PO BID 1 Days #14 capsule 07/28/23 HYDROcodone/APAP 5-325MG [[place] 1 tab PO Q4HR PRN 3 Days #12 tab 07/28/23 5-325] Allergies Allergy/AdvReac Type Severity Reaction Status Date / Time citalopram hydrobromide AdvReac Severe Migraine Verified 07/28/23 21:57 [From Celexa] lactose AdvReac Unknown Verified 07/28/23 21:57 Review of Systems ROS Statement: Those systems with pertinent positive or pertinent negative responses have been documented in the HPI. ROS Other: All systems not noted in ROS Statement are negative. Constitutional: Denies: fever, chills, weakness Respiratory: Denies: cough, dyspnea Cardiovascular: Denies: chest pain, palpitations, edema Gastrointestinal: Reports: as per HPI, abdominal pain, constipation, melena. Denies: nausea, vomiting, diarrhea, hematochezia Genitourinary: Denies: dysuria, frequency, hematuria Musculoskeletal: Denies: back pain Skin: Denies: rash Neurological: Denies: headache, weakness, numbness Past Medical History Past Medical History: Diabetes Mellitus, Hyperlipidemia, Hypertension, Osteoarthritis (OA) Additional Past Medical History / Comment(s): ibs , seasonal allergies, PCOS, MIGRAINES History of Any Multi-Drug Resistant Organisms: None Reported Past Surgical History: Cholecystectomy, Orthopedic Surgery Additional Past Surgical History / Comment(s): colonoscopy, d & c. LT KNEE SX X 4. HEMORRHOID BANDING Past Anesthesia/Blood Transfusion Reactions: No Reported Reaction Past Psychological History: Anxiety, Depression Smoking Status: Current every day smoker Past Alcohol Use History: None Reported Past Drug Use History: None Reported - Past Family History Father Family Medical History: Diabetes Mellitus Mother Family Medical History: No Reported History General Exam Limitations: no limitations General appearance: alert, in no apparent distress Head exam: Present: atraumatic, normocephalic Eye exam: Present: normal appearance. Absent: scleral icterus, conjunctival injection Neck exam: Present: normal inspection Respiratory exam: Present: normal lung sounds bilaterally. Absent: respiratory distress, wheezes, rales, rhonchi, stridor Cardiovascular Exam: Present: regular rate, normal rhythm, normal heart sounds. Absent: systolic murmur, diastolic murmur, rubs, gallop GI/Abdominal exam: Present: soft, tenderness (Mild lower abdominal tenderness without rebound or guarding). Absent: distended, guarding, rebound, rigid, ma ss, pulsatile mass, hernia Extremities exam: Present: normal inspection, normal capillary refill. Absent: pedal edema, calf tenderness Back exam: Present: normal inspection. Absent: CVA tenderness (R), CVA tenderness (L) Neurological exam: Present: alert Skin exam: Present: warm, dry, intact, normal color. Absent: rash Course Vital Signs 07/28/23 07/28/23 15:58 19:15 Temperature 98.9 F Pulse Rate 86 87 Respiratory 18 18 Rate Blood Pressure 111/60 128/66 O2 Sat by Pulse 100 100 Oximetry Medical Decision Making - Medical Decision Making Was pt. sent in by a medical professional or institution (, PA, COMMERCIAL SALES SPECIALIST, urgent care, hospital, or residential...) When possible be specific @ -[No] Did you speak to anyone other than the patient for history (EMS, parent, family, police, friend...)? What history was obtained from this source @ -[No] Did you review nursing and triage notes (agree or disagree)? Why? @ -[I reviewed and agree with nursing and triage notes] Were old charts reviewed (outside hosp., previous admission, EMS record, old EKG, old radiological studies, urgent care reports/EKG's, residential records)? Report findings @ -[No old charts were reviewed] Differential Diagnosis (chest pain, altered mental status, abdominal pain women, abdominal pain men, vaginal bleeding, weakness, fever, dyspnea, syncope, headache, dizziness, GI bleed, back pain, seizure, CVA, palpatations, mental health, musculoskeletal)? @ -[Differential Abdominal Pain Women: Appendicitis, Cholecystitis, diverticulosis, ischemic bowel, pancreatitis, hepatitis, UTI, gastroenteritis, AAA, incarcerated hernia, bowel obstruction, constipation, inflammatory bowel, hepatitis, peptic ulcer disease, splenic infarction, perforated viscus, vulvitis, ovarian torsion, PID, kidney stone, placenta abruption, this is not meant to be an all-inclusive list EKG interpreted by me (3pts min.). @ -[As above] X-rays interpreted by me (1pt min.). @ -[None done] CT interpreted by me (1pt min.). @ -[None done] U/S interpreted by me (1pt. min.). @ -[None done] What testing was considered but not performed or refused? (CT, X-rays, U/S, labs)? Why? @ -[None] What meds were considered but not given or refused? Why? @ -[None] Did you discuss the management of the patient with other professionals (professionals i.e. , PA, COMMERCIAL SALES SPECIALIST, lab, RT, psych nurse, licensed social worker, air pollution control engineer, teacher, weapons officer naval activity, lining caser)? Give summary @ -[I discussed the patient's case with Dr. Lopez, who will see the patient in clinic for further management. Was smoking cessation discussed for >3mins.? @ -[No] Was critical care preformed (if so, how long)? @ -[No] Were there social determinants of health that impacted care today? How? (Homelessness, low income, unemployed, alcoholism, drug addiction, transportation, low edu. Level, literacy, decrease access to med. care, mcc, rehab)? @ -[No] Was there de-escalation of care discussed even if they declined (Discuss DNR or withdrawal of care, Hospice)? DNR status @ -[No] What co-morbidities impacted this encounter? (DM, HTN, Smoking, COPD, CAD, Cancer, CVA, ARF, Chemo, Hep., AIDS, mental health diagnosis, sleep apnea, morb id obesity)? @ -[None] Was patient admitted / discharged? Hospital course, mention meds given and route, prescriptions, significant lab abnormalities, going to OR and other pertinent info. @ -[Patient is 47-year-old woman with approximately one month of pelvic pain. She is found to have possible hydrosalpinx versus complicated ovarian cyst. Case discussed with gynecology and patient will follow-up. We discussed appropriate further care and return parameters. The patient also thought she may passing some blood with bowel movements but Hemoccult is negative here we discussed return parameters related as well Undiagnosed new problem with uncertain prognosis? @ -[No] Drug Therapy requiring intensive monitoring for toxicity (Heparin, Nitro, Insulin, Cardizem)? @ -[No] Were any procedures done? @ -[No] Diagnosis/symptom? @ -[Acute Pelvic pain Hydrosalpinx versus, complex ovarian cyst Anemia, acute on chronic Acute, or Chronic, or Acute on Chronic? @ -[default] Uncomplicated (without systemic symptoms) or Complicated (systemic symptoms)? @ -[Uncomplicated Side effects of treatment? @ -[No] Exacerbation, Progression, or Severe Exacerbation? @ -[No] Poses a threat to life or bodily function? How? (Chest pain, [place], [place], pneumonia, PE, COPD, DKA, ARF, appy, cholecystitis, CVA, Diverticulitis, Homicidal, Casandra cidal, threat to staff... and all critical care pts) @ -[No] - Lab Data Result diagrams: 07/28/23 17:25 07/28/23 17:25 Lab Results 07/28/23 07/28/23 07/28/23 Range/Units 17:25 17:25 17:25 WBC 16.5 H (3.8-10.6) k/uL RBC 3.32 L (3.80-5.40) m/uL Hgb 7.5 L (11.4-16.0) gm/dL Hct 25.6 L (34.0-46.0) % MCV 77.3 L (80.0-100.0) fL MCH 22.5 L (25.0-35.0) pg MCHC 29.1 L (31.0-37.0) g/dL RDW 21.7 H (11.5-15.5) % Plt Count 557 H (150-450) k/uL MPV 7.8 Neutrophils % 63 % Lymphocytes % 27 % Monocytes % 5 % Eosinophils % 2 % Basophils % 0 % Neutrophils # 10.3 H (1.3-7.7) k/uL Lymphocytes # 4.4 (1.0-4.8) k/uL Monocytes # 0.8 (0-1.0) k/uL Eosinophils # 0.4 (0-0.7) k/uL Basophils # 0.1 (0-0.2) k/uL Hypochromasia Marked Poikilocytosis Moderate Anisocytosis Moderate Microcytosis Moderate Sodium (137-145) mmol/L Potassium (3.5-5.1) mmol/L Chloride (98-107) mmol/L Carbon Dioxide (22-30) mmol/L Anion Gap mmol/L BUN (7-17) mg/dL Creatinine (0.52-1.04) mg/dL Est GFR (CKD-EPI)AfAm (>60 ml/min/1.73 sqM) Est GFR (CKD-EPI)NonAf (>60 ml/min/1.73 sqM) Glucose (74-99) mg/dL Calcium (8.4-10.2) mg/dL Total Bilirubin (0.2-1.3) mg/dL AST (14-36) U/L ALT (4-34) U/L Alkaline Phosphatase (38-126) U/L Total Protein (6.3-8.2) g/dL Albumin (3.5-5.0) g/dL Amylase (30-110) U/L Lipase (23-300) U/L Urine Color Colorless Urine Appearance Clear (Clear) Urine pH 7.0 (5.0-8.0) Ur Specific [place] 1.009 (1.001-1.035) Urine Protein Negative (Negative) Urine Glucose (UA) Negative (Negative) Urine Ketones Negative (Negative) Urine Blood Negative (Negative) Urine Nitrite Negative (Negative) Urine Bilirubin Negative (Negative) Urine Urobilinogen <2.0 (<2.0) mg/dL Ur Leukocyte Esterase Small H (Negative) Urine RBC 1 (0-5) /hpf Urine WBC 2 (0-5) /hpf Ur Squamous Epith Cells 2 (0-4) /hpf Urine Bacteria Rare H (None) /hpf Urine Mucus Rare H (None) /hpf Urine HCG, Qual Not Detected (Not Detectd) Stool Occult Blood (Negative) 07/28/23 07/28/23 Range/Units 17:25 18:44 WBC (3.8-10.6) k/uL RBC (3.80-5.40) m/uL Hgb (11.4-16.0) gm/dL Hct (34.0-46.0) % MCV (80.0-100.0) fL MCH (25.0-35.0) pg MCHC (31.0-37.0) g/dL RDW (11.5-15.5) % Plt Count (150-450) k/uL MPV Neutrophils % % Lymphocytes % % Monocytes % % Eosinophils % % Basophils % % Neutrophils # (1.3-7.7) k/uL Lymphocytes # (1.0-4.8) k/uL Monocytes # (0-1.0) k/uL Eosinophils # (0-0.7) k/uL Basophils # (0-0.2) k/uL Hypochromasia Poikilocytosis Anisocytosis Microcytosis Sodium 138 (137-145) mmol/L Potassium 3.7 (3.5-5.1) mmol/L Chloride 104 (98-107) mmol/L Carbon Dioxide 24 (22-30) mmol/L Anion Gap 10 mmol/L BUN 10 (7-17) mg/dL Creatinine 0.66 (0.52-1.04) mg/dL Est GFR (CKD-EPI)AfAm >90 (>60 ml/min/1.73 sqM) Est GFR (CKD-EPI)NonAf >90 (>60 ml/min/1.73 sqM) Glucose 91 (74-99) mg/dL Calcium 9.1 (8.4-10.2) mg/dL Total Bilirubin 0.3 (0.2-1.3) mg/dL AST 30 (14-36) U/L ALT 20 (4-34) U/L Alkaline Phosphatase 131 H (38-126) U/L Total Protein 7.4 (6.3-8.2) g/dL Albumin 4.0 (3.5-5.0) g/dL Amylase 59 (30-110) U/L Lipase 62 (23-300) U/L Urine Color Urine Appearance (Clear) Urine pH (5.0-8.0) Ur Specific [place] (1.001-1.035) Urine Protein (Negative) Urine Glucose (UA) (Negative) Urine Ketones (Negative) Urine Blood (Negative) Urine Nitrite (Negative) Urine Bilirubin (Negative) Urine Urobilinogen (<2.0) mg/dL Ur Leukocyte Esterase (Negative) Urine RBC (0-5) /hpf Urine WBC (0-5) /hpf Ur Squamous Epith Cells (0-4) /hpf Urine Bacteria (None) /hpf Urine Mucus (None) /hpf Urine HCG, Qual (Not Detectd) Stool Occult Blood Negative (Negative) Disposition Clinical Impression: Hydrosalpinx, Abdominal pain, GI bleeding Disposition: HOME SELF-CARE Condition: Good Instructions (If sedation given, give patient instructions): Gastrointestinal Bleeding (ED), Abdominal Pain (ED) Prescriptions: HYDROcodone/APAP 5-325MG [[place] 5-325] 1 tab PO Q4HR PRN 3 Days #12 tab PRN Reason: Pain Doxycycline [Vibramycin] 100 mg PO BID 1 Days #14 capsule Is patient prescribed a controlled substance at d/c from ED?: Yes Referrals: Armando Blue MD [Primary Care Provider] - 1-2 days Sandra Lopez MD [STAFF PHYSICIAN] - 1-2 days Damaris Rajan MD [STAFF PHYSICIAN] - 1-2 days
== END 2023-07-28 22:30 | disposition home or self-care (01) ==
LOC: EC 15:40
DX: N70.11 Chronic salpingitis (principal); K92.2 Gastrointestinal hemorrhage, unspecified; I10 Essential (primary) hypertension; E78.5 Hyperlipidemia, unspecified; E11.9 Type 2 diabetes mellitus without complications; M19.90 Unspecified osteoarthritis, unspecified site; F41.9 Anxiety disorder, unspecified; F32.A Depression, unspecified; F17.200 Nicotine dependence, unspecified, uncomplicated; Z79.1 Long term (current) use of non-steroidal anti-inflammatories (NSAID); Z79.899 Other long term (current) drug therapy; Z79.82 Long term (current) use of aspirin; Z88.8 Allergy status to other drugs, medicaments and biological substances; Z90.49 Acquired absence of other specified parts of digestive tract
CPT/HCPCS: 36415; 80053; 82150; 83690; 85025; 82272; 81001; 81025; 74176; 99284; 96365; 96372; 96375 ×2; J2270; J0500; J0696; J1170

== ENCOUNTER → 2023-08-26 | Outpatient (CLI) | payer OTHER ==
--- NOTE | 2023-08-27 22:06 | MR ---
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 IV Contrast: 11 cc Gadobutrol FINDINGS: Reproductive: Vagina: Unremarkable. Uterus: The uterus is anteverted in position. Uterus measures 8.1 x 4.2 x 5.2 cm. The endometrium and junctional zone are within normal limits. A nabothian cyst is seen in the lower uterine segment. T here is a small fibroid anteriorly measuring 11 x 8 mm. Ovaries: Right adnexal complex cystic lesion thought to be arising off the right ovary measuring 8.4 x 6.3 x 7.8 cm with multiple thin septations versus adjacent cysts. There is questionable communicati on to a few of the cysts on multiple of the sequences suggesting a tubular structure possibly a fallo pian tube. No enhancing mural nodularity identified. Bladder: Unremarkable. Bowel: Unremarkable as visualized. Peritoneum: No free fluid or lymphadenopathy. Lymph nodes: No evidence of adenopathy. Vasculature: Unremarkable. Musculoskeletal: Bone marrow signal is within normal signal intensity. Abdominal wall/soft tissues: Unremarkable. IMPRESSION: 1. Suspected right ovarian complex cyst versus hydrosalpinx. Findings have increased compared to 201 9 study. 2. Uterine fibroid.
== END | disposition home or self-care (01) ==
LOC: RADMRIMAIN 14:59
PROVIDERS: ATTEND Family Medicine
DX: D25.9 Leiomyoma of uterus, unspecified (principal); N94.89 Other specified conditions associated with female genital organs and menstrual cycle
CPT/HCPCS: 72197; A9585

== ENCOUNTER 2023-09-16 16:32 | Emergency (ER) | payer OTHER ==
--- NOTE | 2023-09-16 17:01 | ED ---
General Adult HPI - General Chief complaint: Recheck/Abnormal Lab/Rx Stated complaint: Needs blood transfusion-sent by PCP Time Seen by Provider: 09/16/23 16:46 Source: patient Mode of arrival: ambulatory Limitations: no limitations - History of Present Illness Initial comments: Dictation was produced using [employer] in [place] dictation software. please excuse any grammatical, word or spelling errors. Chief Complaint: 47 yo female with chronic GI bleed and chronic anemia presents to the ER for low hemoglobin History of Present Illness: 47-year-old female she has past medical history of chronic anemia chronic GI bleed states that she was seen at her primary care physician's office yesterday. She had blood drawn there. She received a call today regarding the results. She was told she had hemoglobin below 7 in the 6 range. She was instructed to come to the emergency department for blood transfusion. Patient states she has chronic GI bleed. She states that she's been anemic since she was a child. Patient denies any lightheadedness. No abdominal pain or rectal pain. The ROS documented in this emergency department record has been reviewed and confirmed by me. Those systems with pertinent positive or negative responses have been documented in the HPI. All other systems are other negative and/or noncontributory. - Related Data Home Medications Medication Instructions Recorded Confirmed hydroCHLOROthiazide [Hydrodiuril] 25 mg PO DAILY 12/27/17 07/28/23 Propranolol HCl [Inderal Xl] 80 mg PO DAILY 01/06/19 07/28/23 Sertraline [Zoloft] 150 mg PO DAILY 01/06/19 07/28/23 Fluticasone [place] [Flonase 1 spray EA NOSTRIL BID 07/31/20 07/28/23 [place]] Medroxyprogesterone Acetate 150 mg IM Q84D 07/31/20 07/28/23 [Depo-Provera] oxyCODONE-APAP 7.5-325MG [Percocet 1 tab PO TID 07/31/20 07/28/23 7.5-325 mg] Butalb/APAP/Caff 50-325-40Mg 1 tab PO DAILY PRN 10/06/22 07/28/23 [Fioricet 50-325-40] Gabapentin 300 mg PO BID 10/06/22 07/28/23 Naloxone HCl [Narcan] 4 mg NASAL DIRECTED PRN 10/06/22 07/28/23 hydrOXYzine pamoate [hydrOXYzine 25 mg PO TID PRN 10/06/22 07/28/23 PAMOATE] Aspirin EC [Ecotrin Low Dose] 81 mg PO DAILY 12/31/22 07/28/23 Ibuprofen [Motrin] 800 mg PO TID 12/31/22 07/28/23 Liraglutide [Saxenda] 1.2 mg SQ DAILY 12/31/22 07/28/23 traZODone HCL [Desyrel] 50 mg PO HS PRN 12/31/22 07/28/23 Amitriptyline HCl [Elavil] 25 mg PO HS 07/28/23 07/28/23 Lidocaine 5% Oint [Xylocaine 5% 1 applic TOPICAL BID 07/28/23 07/28/23 Oint] Nicotine 21Mg/24Hr Patch [Habitrol] 1 patch TRANSDERM DAILY 07/28/23 07/28/23 Previous Rx's Medication Instructions Recorded Pantoprazole Sodium [Protonix] 40 mg PO AC-BRKFST #30 tab 10/08/22 Doxycycline [Vibramycin] 100 mg PO BID 1 Days #14 capsule 07/28/23 HYDROcodone/APAP 5-325MG [[place] 1 tab PO Q4HR PRN 3 Days #12 tab 07/28/23 5-325] Allergies Allergy/AdvReac Type Severity Reaction Status Date / Time citalopram hydrobromide AdvReac Severe Migraine Verified 09/16/23 16:45 [From Celexa] lactose AdvReac Unknown Verified 09/16/23 16:45 Review of Systems ROS Statement: Those systems with pertinent positive or pertinent negative responses have been documented in the HPI. ROS Other: All systems not noted in ROS Statement are negative. Past Medical History Past Medical History: Diabetes Mellitus, Hyperlipidemia, Hypertension, Osteoarthritis (OA) Additional Past Medical History / Comment(s): ibs , seasonal allergies, PCOS, MIGRAINES History of Any Multi-Drug Resistant Organisms: None Reported Past Surgical History: Cholecystectomy, Orthopedic Surgery Additional Past Surgical History / Comment(s): colonoscopy, d & c. LT KNEE SX X 4. HEMORRHOID BANDING Past Anesthesia/Blood Transfusion Reactions: No Reported Reaction Past Psychological History: Anxiety, Depression Smoking Status: Current every day smoker Past Alcohol Use History: None Reported Past Drug Use History: None Reported - Past Family History Father Family Medical History: Diabetes Mellitus Mother Family Medical History: No Reported History General Exam - General Exam Comments Initial Comments: PHYSICAL EXAM: General Impression: Alert and oriented x3, not in acute distress HEENT: Normocephalic atraumatic, extra-ocular movements intact, pupils equal and reactive to light bilaterally, mucous membranes moist. Cardiovascular: Heart regular rate and rhythm Chest: Able to complete full sentences, no retractions, no tachypnea Abdomen: abdomen soft, non-tender, non-distended, no organomegaly Musculoskeletal: Pulses present and equal in all extremities, no peripheral edema Motor: no focal deficits noted Neurological: CN II-XII grossly intact, no focal motor or sensory deficits noted Skin: Intact with no visualized rashes Psych: Normal affect and mood Rectal exam: No gross blood Limitations: no limitations Course Vital Signs 09/16/23 09/16/23 16:42 18:39 Temperature 99.1 F 98.3 F Pulse Rate 86 98 Respiratory 18 22 Rate Blood Pressure 107/67 126/64 O2 Sat by Pulse 98 98 Oximetry Medical Decision Making - Medical Decision Making Case discussed with Dr. Cagle for ER to ER transfer. Was pt. sent in by a medical professional or institution (, PA, GENERAL OPERATIONS MANAGER, urgent care, hospital, or assisted...) When possible be specific @ -No Did you speak to anyone other than the patient for history (EMS, parent, family, police, friend...)? What history was obtained from this source @ -No Did you review nursing and triage notes (agree or disagree)? Why? @ -I reviewed and agree with nursing and triage notes Were old charts reviewed (outside hosp., previous admission, EMS record, old EKG, old radiological studies, urgent care reports/EKG's, assisted records)? Report findings @ -No old charts were reviewed Differential Diagnosis (chest pain, altered mental status, abdominal pain women, abdominal pain men, vaginal bleeding, musculoskeletal, weakness, fever, dyspnea, syncope, headache, dizziness, GI bleed, back pain, seizure, CVA, palpatations, mental health)? @ -Differential GI Bleed: Esophageal varices, aortoenteric fistula, Mervat-Hernández, gastritis, peptic ulcer disease, diverticulosis, inflammatory bowel disease, hemorrhoids, fissure, colit is, malignancy, Meckels diverticulum, this is not meant to be an all-inclusive list. EKG interpreted by me (3pts min.). @ -None done X-rays interpreted by me (1pt min.). @ -None done CT interpreted by me (1pt min.). @ -None done U/S interpreted by me (1pt. min.). @ -None done What testing was considered but not performed or refused? (CT, X-rays, U/S, labs)? Why? @ -None What meds were considered but not given or refused? Why? @ -None Did you discuss the management of the patient with other professionals (professionals i.e. , PA, GENERAL OPERATIONS MANAGER, lab, RT, psych nurse, rn social work, instrument maintenance supervisor, teacher, protective officer, manager rn case)? Give summary @ -See above Was smoking cessation discussed for >3mins.? @ -No Was critical care preformed (if so, how long)? @ -No Were there social determinants of health that impacted care today? How? (Homelessness, low income, unemployed, alcoholism, drug addiction, transportation, low edu. Level, literacy, decrease access to med. care, halfway, rehab)? @ -No Was there de-escalation of care discussed even if they declined (Discuss DNR or withdrawal of care, Hospice)? DNR status @ -No What co-morbidities impacted this encounter? (DM, HTN, Smoking, COPD, CAD, Cancer, CVA, ARF, Chemo, Hep., AIDS, mental health diagnosis, sleep apnea, morbid obesity)? @ -None Was patient admitted / discharged? Hospital course, mention meds given and route, prescriptions, significant lab abnormalities, going to OR and other pertinent info. @ -47-year-old female presents emergency department for abnormal outpatient hemoglobin level. Vital signs upon arrival are within acceptable limits. His report some mild symptoms of anemia. Labs are obtained. Hemoglobin 6.5. CBC is 14.4. Coag panel metabolic panel shows mild non-gap acidosis. Cervical blood positive. Patient given transfusion of 1 unit red blood cells. Recommended transfer to facility with GI specialist. Patient agreeable. Patient will be transferred patient given Protonix. EMS [facility] transfer [facility]. Undiagnosed new problem with uncertain prognosis? @ -No Drug Therapy requiring intensive monitoring for toxicity (Heparin, Nitro, Insulin, Cardizem)? @ -No Were any procedures done? @ -No Diagnosis/symptom? Acute, or Chronic, or Acute on Chronic? Uncomplicated (without systemic symptoms) or Complicated (systemic symptoms)? @ -GI bleed, complicated by anemia Side effects of treatment? @ -No Exacerbation, Progression, or Severe Exacerbation? @ -No Poses a threat to life or bodily function? How? (Chest pain, [place], [place], pneumonia, PE, COPD, DKA, ARF, appy, cholecystitis, CVA, Diverticulitis, Homicidal, Suicidal, threat to staff... and all critical care pts) @ -yes - Lab Data Result diagrams: 09/16/23 17:05 09/16/23 17:05 Lab Results 09/16/23 09/16/23 09/16/23 Range/Units 17:01 17:05 17:05 WBC 14.4 H (3.8-10.6) k/uL RBC 2.99 L (3.80-5.40) m/uL Hgb 6.5 L* (11.4-16.0) gm/dL Hct 22.7 L (34.0-46.0) % MCV 76.0 L (80.0-100.0) fL MCH 21.6 L (25.0-35.0) pg MCHC 28.4 L (31.0-37.0) g/dL RDW 21.2 H (11.5-15.5) % Plt Count 370 (150-450) k/uL MPV 7.7 Neutrophils % 62 % Lymphocytes % 29 % Monocytes % 5 % Eosinophils % 2 % Basophils % 1 % Neutrophils # 8.9 H (1.3-7.7) k/uL Lymphocytes # 4.1 (1.0-4.8) k/uL Monocytes # 0.7 (0-1.0) k/uL Eosinophils # 0.3 (0-0.7) k/uL Basophils # 0.1 (0-0.2) k/uL Hypochromasia Marked Poikilocytosis Moderate Anisocytosis Moderate Microcytosis Moderate PT 10.4 (10.0-12.5) sec INR 0.9 (<1.2) APTT 23.9 (22.0-30.0) sec Sodium (137-145) mmol/L Potassium (3.5-5.1) mmol/L Chloride (98-107) mmol/L Carbon Dioxide (22-30) mmol/L Anion Gap mmol/L BUN (7-17) mg/dL Creatinine (0.52-1.04) mg/dL Est GFR (CKD-EPI)AfAm (>60 ml/min/1.73 sqM) Est GFR (CKD-EPI)NonAf (>60 ml/min/1.73 sqM) Glucose (74-99) mg/dL Calcium (8.4-10.2) mg/dL Stool Occult Blood Positive H (Negative) Blood Type Blood Type Recheck Bld Type Recheck Status Antibody Screen Crossmatch Spec Expiration Date 09/16/23 09/16/23 Range/Units 17:05 17:05 WBC (3.8-10.6) k/uL RBC (3.80-5.40) m/uL Hgb (11.4-16.0) gm/dL Hct (34.0-46.0) % MCV (80.0-100.0) fL MCH (25.0-35.0) pg MCHC (31.0-37.0) g/dL RDW (11.5-15.5) % Plt Count (150-450) k/uL MPV Neutrophils % % Lymphocytes % % Monocytes % % Eosinophils % % Basophils % % Neutrophils # (1.3-7.7) k/uL Lymphocytes # (1.0-4.8) k/uL Monocytes # (0-1.0) k/uL Eosinophils # (0-0.7) k/uL Basophils # (0-0.2) k/uL Hypochromasia Poikilocytosis Anisocytosis Microcytosis PT (10.0-12.5) sec INR (<1.2) APTT (22.0-30.0) sec Sodium 140 (137-145) mmol/L Potassium 4.0 (3.5-5.1) mmol/L Chloride 114 H (98-107) mmol/L Carbon Dioxide 16 L (22-30) mmol/L Anion Gap 10 mmol/L BUN 8 (7-17) mg/dL Creatinine 0.66 (0.52-1.04) mg/dL Est GFR (CKD-EPI)AfAm >90 (>60 ml/min/1.73 sqM) Est GFR (CKD-EPI)NonAf >90 (>60 ml/min/1.73 sqM) Glucose 95 (74-99) mg/dL Calcium 8.7 (8.4-10.2) mg/dL Stool Occult Blood (Negative) Blood Type O Positive Blood Type Recheck O Pos Bld Type Recheck Status No Antibody Screen NEGATIVE Crossmatch See Detail Spec Expiration Date 09/19/20232304 Disposition Clinical Impression: Anemia Disposition: OTHER INSTITUTION NOT DEFINED Condition: Fair Referrals: Armando Blue MD [Primary Care Provider] - 1-2 days Time of Disposition: 18:27 - Out of Hospital Transfer - Req. Specs Out of Hospital Transfer - Requested Specifics: Other [facility] ([facility])
[2023-09-16 17:32] LABS: Anisocytosis Moderate; Basophils # (A) 0.1 k/uL (0-0.2); Basophils % (A) 1 %; Eosinophils # (A) 0.3 k/uL (0-0.7); Eosinophils % (A) 2 %; HCT 22.7 % (34.0-46.0); Hypochromasia Marked; Lymphocytes # (A) 4.1 k/uL (1.0-4.8); Lymphocytes % (A) 29 %; MCH 21.6 pg (25.0-35.0); MCHC 28.4 g/dL (31.0-37.0); Mean Platelet Volume 7.7; Microcytosis Moderate; Monocytes # (A) 0.7 k/uL (0-1.0); Monocytes % (A) 5 %; Neutrophils # (A) 8.9 k/uL (1.3-7.7); Neutrophils % (A) 62 %; Platelet Count 370 k/uL (150-450); Poikilocytosis Moderate; RBC 2.99 m/uL (3.80-5.40); RDW 21.2 % (11.5-15.5); WBC 14.4 k/uL (3.8-10.6)
[2023-09-16 17:35] LABS: HGB 6.5 gm/dL (11.4-16.0)
[2023-09-16 17:39] LABS: African American GFR (CKD) >90 (>60 ml/min/1.73 sqM); Anion Gap 10 mmol/L; Blood Urea Nitrogen 8 mg/dL (7-17); Calcium 8.7 mg/dL (8.4-10.2); Carbon Dioxide 16 mmol/L (22-30); Chloride 114 mmol/L (98-107); Glucose 95 mg/dL (74-99); INR 0.9 (<1.2); Non-African American GFR(CKD) >90 (>60 ml/min/1.73 sqM); Partial Thromboplastin Time 23.9 sec (22.0-30.0); Prothrombin Time 10.4 sec (10.0-12.5); Sodium 140 mmol/L (137-145)
[2023-09-16] MEDS ORDERED: PANTOPRAZOLE 40 MG/10 ML VIAL IVP STA (17:43)
[2023-09-16] MEDS ORDERED: MORPHINE SULFATE 4 MG/ML SYRINGE IV STA (18:56)
[2023-09-16 19:35] VITALS: BP 114/60; PULSE 83; RESP 18; TEMP 99.1
== END 2023-09-16 20:00 | disposition other institution (70) ==
LOC: EC 16:32
DX: D64.9 Anemia, unspecified (principal); E11.9 Type 2 diabetes mellitus without complications; I10 Essential (primary) hypertension; F17.200 Nicotine dependence, unspecified, uncomplicated; F41.9 Anxiety disorder, unspecified; F32.A Depression, unspecified; Z79.82 Long term (current) use of aspirin; Z79.899 Other long term (current) drug therapy; Z79.84 Long term (current) use of oral hypoglycemic drugs; Z91.011 Allergy to milk products; Z88.8 Allergy status to other drugs, medicaments and biological substances
CPT/HCPCS: 99284; 96374; 96375; 36415; 93005; 86900; 86901; 80048; 85025; 85610; 85730; 86850; 86920; 82272; 36430; P9016; J2270; C9113

== ENCOUNTER 2023-10-27 19:01 | Emergency (ER) | payer OTHER ==
--- NOTE | 2023-10-27 19:29 | ED ---
GI Bleed HPI - General Source: patient Mode of arrival: ambulatory Limitations: no limitations <Terri Potter - Last Filed: 10/27/23 19:27> - History of Present Illness MD complaint: melena Onset/Timin -: days(s) Quality: dull Consistency: constant Improves with: none Worsens with: none Context: history of GI bleed Associated Symptoms: abdominal pain Treatments Prior to Arrival: none <Jovanni Odonnell - Last Filed: 11/07/23 08:07> - General Stated complaint: abnormal labs Time Seen by Provider: 10/27/23 19:27 - History of Present Illness Initial comments: 48-year-old female sent by her PCP for low hemoglobin. Patient has hematochezia, said she has a history of GI bleeds. She also admits to left- sided abdominal pain. (Terri Potter) - Related Data Home Medications Medication Instructions Recorded Confirmed hydroCHLOROthiazide [Hydrodiuril] 25 mg PO DAILY 12/27/17 07/28/23 Propranolol HCl [Inderal Xl] 80 mg PO DAILY 01/06/19 07/28/23 Sertraline [Zoloft] 150 mg PO DAILY 01/06/19 07/28/23 Fluticasone Nasal Dazey [Flonase 1 spray EA NOSTRIL BID 07/31/20 07/28/23 Nasal Dazey] Medroxyprogesterone Acetate 150 mg IM Q84D 07/31/20 07/28/23 [Depo-Provera] oxyCODONE-APAP 7.5-325MG [Percocet 1 tab PO TID 07/31/20 07/28/23 7.5-325 mg] Butalb/APAP/Caff 50-325-40Mg 1 tab PO DAILY PRN 10/06/22 07/28/23 [Fioricet 50-325-40] Gabapentin 300 mg PO BID 10/06/22 07/28/23 Naloxone HCl [Narcan] 4 mg NASAL DIRECTED PRN 10/06/22 07/28/23 hydrOXYzine pamoate 25 mg PO TID PRN 10/06/22 07/28/23 Aspirin EC [Ecotrin Low Dose] 81 mg PO DAILY 12/31/22 07/28/23 Ibuprofen [Motrin] 800 mg PO TID 12/31/22 07/28/23 Liraglutide [Saxenda] 1.2 mg SQ DAILY 12/31/22 07/28/23 traZODone HCL [Desyrel] 50 mg PO HS PRN 12/31/22 07/28/23 Amitriptyline HCl [Elavil] 25 mg PO HS 07/28/23 07/28/23 Lidocaine 5% Oint [Xylocaine 5% 1 applic TOPICAL BID 07/28/23 07/28/23 Oint] Nicotine 21Mg/24Hr Patch [Habitrol] 1 patch TRANSDERM DAILY 07/28/23 07/28/23 Previous Rx's Medication Instructions Recorded Pantoprazole Sodium [Protonix] 40 mg PO AC-BRKFST #30 tab 10/08/22 Doxycycline [Vibramycin] 100 mg PO BID 1 Days #14 capsule 07/28/23 HYDROcodone/APAP 5-325MG [[place]is[place] 1 tab PO Q4HR PRN 3 Days #12 tab 07/28/23 5-325] Allergies Allergy/AdvReac Type Severity Reaction Status Date / Time citalopram hydrobromide AdvReac Severe Migraine Verified 10/27/23 19:30 [From Celexa] lactose AdvReac Unknown Verified 10/27/23 19:30 Review of Systems ROS Other: All systems not noted in ROS Statement are negative. <Terri Potter - Last Filed: 10/27/23 19:27> ROS Other: All systems not noted in ROS Statement are negative. Constitutional: Denies: fever, chills Respiratory: Denies: cough, dyspnea Cardiovascular: Denies: chest pain, palpitations, edema Gastrointestinal: Reports: abdominal pain, melena. Denies: vomiting, diarrhea, hematochezia Genitourinary: Denies: dysuria, hematuria Musculoskeletal: Denies: back pain Skin: Denies: rash Neurological: Denies: headache, weakness, numbness <Jovanni Odonnell - Last Filed: 11/07/23 08:07> ROS Statement: Those systems with pertinent positive or pertinent negative responses have been documented in the HPI. Past Medical History Past Medical History: Diabetes Mellitus, Hyperlipidemia, Hypertension, Osteoarthritis (OA) Additional Past Medical History / Comment(s): ibs , seasonal allergies, PCOS, MIGRAINES History of Any Multi-Drug Resistant Organisms: None Reported Past Surgical History: Cholecystectomy, Orthopedic Surgery Additional Past Surgical History / Comment(s): colonoscopy, d & c. LT KNEE SX X 4. HEMORRHOID BANDING Past Anesthesia/Blood Transfusion Reactions: No Reported Reaction Past Psychological History: Anxiety, Depression Smoking Status: Current every day smoker Past Alcohol Use History: None Reported Past Drug Use History: None Reported - Past Family History Father Family Medical History: Diabetes Mellitus Mother Family Medical History: No Reported History <Terri Potter - Last Filed: 10/27/23 19:27> General Exam <Terri Potter - Last Filed: 10/27/23 19:27> General appearance: alert, in no apparent distress Head exam: Present: atraumatic, normocephalic Eye exam: Present: normal appearance. Absent: scleral icterus, conjunctival injection ENT exam: Present: normal oropharynx Neck exam: Present: normal inspection Respiratory exam: Present: normal lung sounds bilaterally. Absent: respiratory distress, wheezes, rales, rhonchi, stridor Cardiovascular Exam: Present: regular rate, normal rhythm, normal heart sounds. Absent: systolic murmur, diastolic murmur, rubs, gallop GI/Abdominal exam: Present: soft, tenderness (Left-sided). Absent: distended, guarding, rebound, rigid, mass Rectal exam: Present: normal rectal tone, hemorrhoids. Absent: mass, tenderness Extremities exam: Present: normal inspection, normal capillary refill. Absent: pedal edema, calf tenderness Back exam: Present: normal inspection Neurological exam: Present: alert Skin exam: Present: warm, dry, intact, normal color. Absent: rash <Jovanni Odonnell - Last Filed: 11/07/23 08:07> - General Exam Comments Initial Comments: Visual Physical Exam Vital signs reviewed General: Well-appearing, nontoxic, no acute distress. Head: Normocephalic, atraumatic Eyes: PERRLA, EOMI ENT: Airway patent Chest: Nonlabored breathing Skin: No visual rash, normal skin tone Neuro: Alert and oriented 3 Musculoskeletal: No gross abnormalities (Terri Potter) Course Vital Signs 10/27/23 10/28/23 19:27 03:41 Temperature 99.1 F Pulse Rate 90 86 Respiratory 18 16 Rate Blood Pressure 110/67 121/57 O2 Sat by Pulse 99 99 Oximetry Medical Decision Making <Terri Potter - Last Filed: 10/27/23 19:27> - Lab Data Result diagrams: 10/27/23 19:45 10/27/23 19:45 <CarlalaliJovanni - Last Filed: 11/07/23 08:07> - Medical Decision Making I performed the quick note portion of this visit electronically signed Terri Potter PA-C (Terri Potter) Patient is a 48-year-old woman here with complaint of passing 3 days of dark stools. Her hemoglobin today 8.5 which is better than the previous presentation when she was down to 6.5 and did require transfusion. The patient is occult positive. Discussed further management and that there is no GI coverage patient requests [facility] where she has been transferred before. The patient had CT scan of the abdomen and pelvis which I interpreted as not showing acute surgical condition. No bowel obstruction or free air. Was pt. sent in by a medical professional or institution (JES Loaiza, COSTUME DIRECTOR, urgent care, hospital, or alf...) When possible be specific @ -[No] Did you speak to anyone other than the patient for history (EMS, parent, family, police, friend...)? What history was obtained from this source @ -[No] Did you review nursing and triage notes (agree or disagree)? Why? @ -[I reviewed and agree with nursing and triage notes] Were old charts reviewed (outside hosp., previous admission, EMS record, old EKG, old radiological studies, urgent care reports/EKG's, alf records)? Report findings @ -[No old charts were reviewed] Differential Diagnosis (chest pain, altered mental status, abdominal pain women, abdominal pain men, vaginal bleeding, weakness, fever, dyspnea, syncope, head ache, dizziness, GI bleed, back pain, seizure, CVA, palpatations, mental health, musculoskeletal)? @ -[Differential GI Bleed: Esophageal varices, aortoenteric fistula, Mervat-Hernández, gastritis, peptic ulcer disease, diverticulosis, inflammatory bowel disease, hemorrhoids, fissure, colitis, malignancy, Meckels diverticulum, this is not meant to be an all- inclusive list. EKG interpreted by me (3pts min.). @ -[As above] X-rays interpreted by me (1pt min.). @ -[None done] CT interpreted by me (1pt min.). @ -[ I interpreted as above U/S interpreted by me (1pt. min.). @ -[None done] What testing was considered but not performed or refused? (CT, X-rays, U/S, labs)? Why? @ -[None] What meds were considered but not given or refused? Why? @ -[None] Did you discuss the management of the patient with other professionals (professionals i.e. , PA, COSTUME DIRECTOR, lab, RT, psych nurse, criminal justice social worker, sales operations coordinator, teacher, special weapons unit officer, case consultant)? Give summary @ -[No] Was smoking cessation discussed for >3mins.? @ -[No] Was critical care preformed (if so, how long)? @ -[No] Were there social determinants of health that impacted care today? How? (Homelessness, low income, unemployed, alcoholism, drug addiction, transportation, low edu. Level, literacy, decrease access to med. care, half-way, rehab)? @ -[No] Was there de-escalation of care discussed even if they declined (Discuss DNR or withdrawal of care, Hospice)? DNR status @ -[No] What co-morbidities impacted this encounter? (DM, HTN, Smoking, COPD, CAD, Cancer, CVA, ARF, Chemo, Hep., AIDS, mental health diagnosis, sleep apnea, morbid obesity)? @ -[None] Was patient admitted / discharged? Hospital course, mention meds given and rou te, prescriptions, significant lab abnormalities, going to OR and other pertinent info. @ -[Please see above Undiagnosed new problem with uncertain prognosis? @ -[No] Drug Therapy requiring intensive monitoring for toxicity (Heparin, Nitro, Insulin, Cardizem)? @ -[No] Were any procedures done? @ -[No] Diagnosis/symptom? @ -[Acute gastrointestinal bleeding Anemia, chronic Acute, or Chronic, or Acute on Chronic? @ -[default] Uncomplicated (without systemic symptoms) or Complicated (systemic symptoms)? @ -[Uncomplicated Side effects of treatment? @ -[No] Exacerbation, Progression, or Severe Exacerbation? @ -[No] Poses a threat to life or bodily function? How? (Chest pain, [place], [place], pneumonia, PE, COPD, DKA, ARF, appy, cholecystitis, CVA, Diverticulitis, Homicidal, Suicidal, threat to staff... and all critical care pts) @ -[Yes, continued GI bleeding could lead to hypotension, circulatory collapse, (Jovanni Odonnell) - Lab Data Lab Results 10/27/23 10/27/23 10/27/23 Range/Units 19:45 19:45 19:45 WBC 14.3 H (3.8-10.6) k/uL RBC 3.59 L (3.80-5.40) m/uL Hgb 8.4 L D (11.4-16.0) gm/dL Hct 28.2 L (34.0-46.0) % MCV 78.7 L (80.0-100.0) fL MCH 23.4 L (25.0-35.0) pg MCHC 29.7 L (31.0-37.0) g/dL RDW 21.6 H (11.5-15.5) % Plt Count 465 H (150-450) k/uL MPV 7.7 Neutrophils % 60 % Lymphocytes % 30 % Monocytes % 5 % Eosinophils % 2 % Basophils % 1 % Neutrophils # 8.6 H (1.3-7.7) k/uL Lymphocytes # 4.2 (1.0-4.8) k/uL Monocytes # 0.8 (0-1.0) k/uL Eosinophils # 0.3 (0-0.7) k/uL Basophils # 0.1 (0-0.2) k/uL Hypochromasia Marked Poikilocytosis Moderate Anisocytosis Moderate Microcytosis Moderate Sodium 138 (137-145) mmol/L Potassium 4.0 (3.5-5.1) mmol/L Chloride 111 H (98-107) mmol/L Carbon Dioxide 17 L (22-30) mmol/L Anion Gap 10 mmol/L BUN 12 (7-17) mg/dL Creatinine 0.73 (0.52-1.04) mg/dL Est GFR (CKD-EPI)AfAm >90 (>60 ml/min/1.73 sqM) Est GFR (CKD-EPI)NonAf >90 (>60 ml/min/1.73 sqM) Glucose 93 (74-99) mg/dL Calcium 9.2 (8.4-10.2) mg/dL Total Bilirubin 0.3 (0.2-1.3) mg/dL AST 26 (14-36) U/L ALT 19 (4-34) U/L Alkaline Phosphatase 164 H (38-126) U/L Total Protein 7.3 (6.3-8.2) g/dL Albumin 3.9 (3.5-5.0) g/dL Stool Occult Blood (Negative) Blood Type O Positive Blood Type Recheck O Pos Bld Type Recheck Status No Antibody Screen NEGATIVE Spec Expiration Date 10/30/2023 - 234410/28/23 Range/Units 01:10 WBC (3.8-10.6) k/uL RBC (3.80-5.40) m/uL Hgb (11.4-16.0) gm/dL Hct (34.0-46.0) % MCV (80.0-100.0) fL MCH (25.0-35.0) pg MCHC (31.0-37.0) g/dL RDW (11.5-15.5) % Plt Count (150-450) k/uL MPV Neutrophils % % Lymphocytes % % Monocytes % % Eosinophils % % Basophils % % Neutrophils # (1.3-7.7) k/uL Lymphocytes # (1.0-4.8) k/uL Monocytes # (0-1.0) k/uL Eosinophils # (0-0.7) k/uL Basophils # (0-0.2) k/uL Hypochromasia Poikilocytosis Anisocytosis Microcytosis Sodium (137-145) mmol/L Potassium (3.5-5.1) mmol/L Chloride (98-107) mmol/L Carbon Dioxide (22-30) mmol/L Anion Gap mmol/L BUN (7-17) mg/dL Creatinine (0.52-1.04) mg/dL Est GFR (CKD-EPI)AfAm (>60 ml/min/1.73 sqM) Est GFR (CKD-EPI)NonAf (>60 ml/min/1.73 sqM) Glucose (74-99) mg/dL Calcium (8.4-10.2) mg/dL Total Bilirubin (0.2-1.3) mg/dL AST (14-36) U/L ALT (4-34) U/L Alkaline Phosphatase (38-126) U/L Total Protein (6.3-8.2) g/dL Albumin (3.5-5.0) g/dL Stool Occult Blood Positive H (Negative) Blood Type Blood Type Recheck Bld Type Recheck Status Antibody Screen Spec Expiration Date Disposition <Terri Potter - Last Filed: 10/27/23 19:27> Is patient prescribed a controlled substance at d/c from ED?: No - Out of Hospital Transfer - Req. Specs Out of Hospital Transfer - Requested Specifics: Other Emergency Center ([facility]) <Jovanni Odonnell - Last Filed: 11/07/23 08:07> Clinical Impression: GI bleeding, Anemia Disposition: OTHER INSTITUTION NOT DEFINED Condition: Fair Instructions (If sedation given, give patient instructions): Gastrointestinal B alex (ED) Referrals: Armando Blue MD [Primary Care Provider] - 1-2 days
[2023-10-27 19:36] VITALS: TEMP 99.1
[2023-10-27 20:02] LABS: ALT 19 U/L (4-34); AST 26 U/L (14-36); African American GFR (CKD) >90 (>60 ml/min/1.73 sqM); Albumin 3.9 g/dL (3.5-5.0); Alkaline Phosphatase 164 U/L (38-126); Anion Gap 10 mmol/L; Blood Urea Nitrogen 12 mg/dL (7-17); Calcium 9.2 mg/dL (8.4-10.2); Carbon Dioxide 17 mmol/L (22-30); Chloride 111 mmol/L (98-107); Glucose 93 mg/dL (74-99); Non-African American GFR(CKD) >90 (>60 ml/min/1.73 sqM); Sodium 138 mmol/L (137-145); Total Bilirubin 0.3 mg/dL (0.2-1.3); Total Protein 7.3 g/dL (6.3-8.2)
[2023-10-27 20:23] LABS: Anisocytosis Moderate; Basophils # (A) 0.1 k/uL (0-0.2); Basophils % (A) 1 %; Eosinophils # (A) 0.3 k/uL (0-0.7); Eosinophils % (A) 2 %; HCT 28.2 % (34.0-46.0); Hypochromasia Marked; Lymphocytes # (A) 4.2 k/uL (1.0-4.8); Lymphocytes % (A) 30 %; MCH 23.4 pg (25.0-35.0); MCHC 29.7 g/dL (31.0-37.0); MCV 78.7 fL (80.0-100.0); Mean Platelet Volume 7.7; Microcytosis Moderate; Monocytes # (A) 0.8 k/uL (0-1.0); Monocytes % (A) 5 %; Neutrophils # (A) 8.6 k/uL (1.3-7.7); Neutrophils % (A) 60 %; Platelet Count 465 k/uL (150-450); Poikilocytosis Moderate; RBC 3.59 m/uL (3.80-5.40); RDW 21.6 % (11.5-15.5); WBC 14.3 k/uL (3.8-10.6)
[2023-10-27 20:35] LABS: HGB 8.4 gm/dL (11.4-16.0)
[2023-10-28] MEDS: GABAPENTIN 300 MG CAP PO STA (02:18)
[2023-10-28] MEDS: oxyCODONE-APAP 10-325MG 1 EACH TAB PO PRN (03:03)
[2023-10-28 03:50] VITALS: BP 121/57; PULSE 86; RESP 16
--- NOTE | 2023-10-28 03:54 | CT ---
EXAMINATION TYPE: CT abdomen pelvis wo con DATE OF EXAM: 10/28/2023 HISTORY: Left-sided abd pain and constipation. Rectal bleeding. CT DLP: 1009.3 mGycm. Automated Exposure Control for Dose Reduction was Utilized. TECHNIQUE: CT scan of the abdomen and pelvis is performed without oral or IV contrast. COMPARISON: Prior CT July 28, 2023 FINDINGS: Within the limitations of a non-contrast study, the following observations are made. LUNG BASES: No significant abnormality is appreciated. LIVER/GB: Cholecystectomy clips are redemonstrated. PANCREAS: No significant abnormality is seen. SPLEEN: No significant abnormality is seen. ADRENALS: No significant abnormality is seen. KIDNEYS: No renal stones or hydronephrosis is seen bilaterally. BOWEL: No significant abnormality is seen. GENITAL ORGANS: Persistent thin-walled cysts or cystic lesions in the pelvis or possibly one larger l esion with thin septa axial image 118 is not significantly changed from prior study. LYMPH NODES: No greater than 1cm abdominal or pelvic lymph nodes are appreciated. OSSEOUS STRUCTURES: Scoliotic curvature redemonstrated. OTHER: No significant additional abnormality is seen. IMPRESSION: No significant new or acute finding present on this study to account for patient's sympto ms.
[2023-10-28] MEDS: MORPHINE SULFATE 4 MG/ML SYRINGE IV STA (04:17)
== END 2023-10-28 04:27 | disposition other institution (70) ==
LOC: EC 19:01
DX: D64.9 Anemia, unspecified (principal); K92.2 Gastrointestinal hemorrhage, unspecified; I10 Essential (primary) hypertension; E11.9 Type 2 diabetes mellitus without complications; E78.5 Hyperlipidemia, unspecified; M19.90 Unspecified osteoarthritis, unspecified site; F41.9 Anxiety disorder, unspecified; F32.A Depression, unspecified; F17.200 Nicotine dependence, unspecified, uncomplicated; Z79.1 Long term (current) use of non-steroidal anti-inflammatories (NSAID); Z79.899 Other long term (current) drug therapy; Z90.49 Acquired absence of other specified parts of digestive tract
CPT/HCPCS: 36415 ×2; 86900; 86901; 80053; 85025; 86850; 82272; 74176; 99285; 96374; J2270

== ENCOUNTER → 2025-03-26 | Outpatient (CLI) | payer OTHER ==
--- NOTE | 2025-03-26 15:46 | MM ---
Reason for Exam: Screening (asymptomatic). Last mammogram was performed 6 year(s) and 3 month(s) ago. Patient History: Menarche at age 12. First Full-Term at age 21. Patient has history of breast feeding. Currently using Hormonal Contraceptives, for 15 years. Risk Values: Jess 5 year model risk: 1.0%. NCI Lifetime model risk: 8.9%. Prior Study Comparison: 01/11/2019 Bilateral Screening Mammogram, [facility]. Tissue Density: There are scattered areas of fibroglandular density. Findings: Analyzed By CAD. There is no suspicious group of microcalcifications or new suspicious mass in either breast. Overall Assessment: Negative, BI-RAD 1 Management: Screening Mammogram of both breasts in 1 year. Patient should continue monthly self-breast exams. A clinical breast exam by your physician is recommended on an annual basis. This exam should not preclude additional follow-up of suspicious palpable abnormalities. Note on Jess scores and lifetime risk: 1. A Jess score greater than 3% is considered moderate risk. If this is the case, consider specialist referral to assess eligibility for a risk reducing agent. 2. If overall lifetime risk for the development of breast cancer is 20% or higher, the patient may qualify for future screening with alternating mammogram and breast MRI. [facility], , 03/26/2025 3:43 PM. Electronically signed and approved by: Jaime Souza M.D. Radiologist
== END | disposition home or self-care (01) ==
LOC: RADMAMWWP 14:01
PROVIDERS: ATTEND Family Medicine
DX: Z12.31 Encounter for screening mammogram for malignant neoplasm of breast (principal); R92.323 Mammographic fibroglandular density, bilateral breasts; Z79.3 Long term (current) use of hormonal contraceptives
CPT/HCPCS: 77067